=== PATIENT | female | born 1950 | race Caucasian/White ===

== ENCOUNTER 2019-07-15 09:00 | Outpatient (CLI) | payer MEDICARE, SELFPAY ==
[2019-07-15 09:20] LABS: Hemoglobin A1C 8.9 % (<5.7)
[2019-07-15 10:05] LABS: Alanine Aminotransferase 39 U/L (14-59); Albumin Level 3.7 g/dL (3.4-5.0); Alkaline Phosphatase 138 U/L (46-116); Anion Gap 14.4 mmol/L (7-16); Aspartate Amino Transferase 20 U/L (15-37); Bilirubin,Total 0.3 mg/dL (0.00-1.00); Blood Urea Nitrogen 17 mg/dL (7-18); Carbon Dioxide 27 mmol/L (21-32); Chloride 102 mmol/L (98-108); Cholesterol 151 mg/dL (0-200); Estimated Glomerular Filt Rate 60; Glucose 220 mg/dL (70-99); HDL Direct 39 mg/dL (40-60); LDL Cholesterol Calculated 85 mg/dL (<130); Osmolality Calculated 296 mOsm/kg (285-295); Potassium 4.4 mmol/L (3.5-5.1); Sodium 139 mmol/L (136-145); Total Protein 7.4 g/dL (6.4-8.2); Triglycerides 137 mg/dL (0-150)
[2019-07-15 18:43] LABS: CRP < 0.2 mg/dL (0.0-0.9)
[2019-07-15 19:22] LABS: Basophils Absolute Auto 0.01 K/mm3 (0.00-0.10); Basophils Percent Auto 0.1 % (0.0-1.0); Eosinophils Absolute Auto 0.69 K/mm3 (0.02-0.50); Eosinophils Percent Auto 7.6 % (1.0-6.0); Hematocrit 38.9 % (35.0-42.0); Immature Granulocyte Absolute 0.03 K/mm3 (0.00-0.00); Immature Granulocyte Percent A 0.3 % (0.0-0.0); Lymphocytes Absolute Auto 2.49 K/mm3 (1.10-4.50); Lymphocytes Percent Auto 27.3 % (18.0-42.0); Mean Corpuscular HGB Conc 33.4 g/dL (32.0-36.0); Mean Corpuscular Volume 86.6 fL (78.0-102.0); Mean Platelet Volume 10.5 fl (9.2-11.8); Monocytes Absolute Auto 0.65 K/mm3 (0.10-0.90); Monocytes Percent Auto 7.1 % (2.0-11.0); Neutrophils Absolute Auto 5.3 K/mm3 (1.7-7.2); Neutrophils Percent Auto 57.6 % (50.0-70.0); Platelet Count Result 329 K/mm3 (150-420); Red Blood Count 4.49 M/mm3 (4.20-5.40); Red Cell Distribution Width 13.1 % (11.6-14.4); White Blood Count 9.1 K/mm3 (4.8-10.8)
== END 2019-07-15 09:01 | disposition home or self-care (01) ==
LOC: CHSLAB 09:02
PROVIDERS: PCP Internal Medicine; Visit Provider Internal Medicine
DX: E78.5 Hyperlipidemia, unspecified (principal); E11.9 Type 2 diabetes mellitus without complications; M79.674 Pain in right toe(s)
CPT/HCPCS: 36415; 80053; 80061; 83036; 85025; 86140

== ENCOUNTER 2019-07-24 17:05 | Outpatient (CLI) | payer MEDICARE, SELFPAY ==
--- NOTE | ~2019-07-24 | XR_ITS ---
EXAMINATION: XR hand RT min 3V INDICATION: Right hand pain TECHNIQUE: Three views of the right hand are obtained. COMPARISON: 10/06/2014 FINDINGS: There is no fracture, dislocation, or subluxation. There is mild polyarticular osteoarthrit is of the interphalangeal joints. The soft tissues are unremarkable. IMPRESSION: 1. Mild osteoarthritis. Reviewed, dictated and finalized at location A. IMPRESSION: 1. Mild osteoarthritis.
--- NOTE | ~2019-07-24 | XR_ITS ---
EXAMINATION: XR hand LT min 3V INDICATION: Left hand pain TECHNIQUE: Three views of the left hand are obtained. COMPARISON: 10/06/2014 FINDINGS: There is no fracture, dislocation, or subluxation. There is mild polyarticular osteoarthrit is of the interphalangeal joints. The soft tissues are unremarkable. IMPRESSION: 1. Mild osteoarthritis. Reviewed, dictated and finalized at location A. IMPRESSION: 1. Mild osteoarthritis.
== END 2019-07-24 17:06 | disposition home or self-care (01) ==
LOC: CHSIMG 17:08
PROVIDERS: PCP Internal Medicine; Visit Provider Internal Medicine
DX: M79.642 Pain in left hand (principal); M79.641 Pain in right hand
CPT/HCPCS: 73130

== ENCOUNTER 2019-09-10 10:22 | Outpatient (CLI) | payer MEDICARE, SELFPAY ==
--- NOTE | ~2019-09-10 | MM_ITS ---
EXAMINATION: MM screening [facility] HISTORY: Screening mammogram TECHNIQUE: Craniocaudal and mediolateral oblique 3-D tomosynthesis images were obtained and synthetic 2-D images were generated. CAD analysis was submitted and interpreted. COMPARISON: Comparison to multiple prior studies sequentially, with oldest reviewed study dated 05/2013. BREAST PARENCHYMAL COMPOSITION: There are scattered areas of fibroglandular density. FINDINGS: There is no evidence of suspicious mass, calcification, or architectural distortion to sugg est malignancy in either breast. There has been no suspicious interval change. IMPRESSION: 1. No mammographic evidence of malignancy. 2. Recommend routine screening mammography in one year. BI-RADS Category 1: Negative Reviewed, dictated and finalized at location A.
== END 2019-09-10 10:23 | disposition home or self-care (01) ==
LOC: ANHIMG 10:29
PROVIDERS: PCP Internal Medicine; Visit Provider Internal Medicine
DX: Z12.31 Encounter for screening mammogram for malignant neoplasm of breast (principal)
CPT/HCPCS: 77063; 77067

== ENCOUNTER 2019-10-21 07:58 | Outpatient (CLI) | payer MEDICARE, SELFPAY ==
[2019-10-21 08:12] LABS: Basophils Absolute Auto 0.01 K/mm3 (0.00-0.10); Basophils Percent Auto 0.1 % (0.0-1.0); Eosinophils Absolute Auto 0.76 K/mm3 (0.02-0.50); Eosinophils Percent Auto 8.3 % (1.0-6.0); Hematocrit 36.1 % (35.0-42.0); Hemoglobin 12.3 g/dL (11.7-13.8); Immature Granulocyte Absolute 0.02 K/mm3 (0.00-0.00); Immature Granulocyte Percent A 0.2 % (0.0-0.0); Lymphocytes Percent Auto 28.5 % (18.0-42.0); Mean Corpuscular HGB Conc 34.1 g/dL (32.0-36.0); Mean Corpuscular Hemoglobin 29.6 pg (27.0-31.0); Mean Corpuscular Volume 86.8 fL (78.0-102.0); Mean Platelet Volume 9.9 fl (9.2-11.8); Monocytes Absolute Auto 0.83 K/mm3 (0.10-0.90); Monocytes Percent Auto 9.1 % (2.0-11.0); Neutrophils Absolute Auto 4.9 K/mm3 (1.7-7.2); Neutrophils Percent Auto 53.8 % (50.0-70.0); Platelet Count Result 334 K/mm3 (150-420); Red Blood Count 4.16 M/mm3 (4.20-5.40); Red Cell Distribution Width 13.2 % (11.6-14.4); White Blood Count 9.1 K/mm3 (4.8-10.8)
[2019-10-21 08:30] LABS: Hemoglobin A1C 7.5 % (<5.7)
[2019-10-21 09:19] LABS: Alanine Aminotransferase 40 U/L (14-59); Albumin Level 3.9 g/dL (3.4-5.0); Alkaline Phosphatase 103 U/L (46-116); Anion Gap 12.3 mmol/L (7-16); Aspartate Amino Transferase 26 U/L (15-37); Bilirubin,Total 0.3 mg/dL (0.00-1.00); Blood Urea Nitrogen 26 mg/dL (7-18); Calcium 9.8 mg/dL (8.5-10.1); Carbon Dioxide 28 mmol/L (21-32); Chloride 103 mmol/L (98-108); Estimated Glomerular Filt Rate 37; Glucose 84 mg/dL (70-99); Osmolality Calculated 291 mOsm/kg (285-295); Potassium 4.3 mmol/L (3.5-5.1); Sodium 139 mmol/L (136-145); Thyroid Stimulating Hormone 8.48 uIU/mL (0.36-3.74); Total Protein 7.1 g/dL (6.4-8.2)
[2019-10-21 09:25] LABS: CRP < 0.2 mg/dL (0.0-0.9)
== END 2019-10-21 07:59 | disposition home or self-care (01) ==
PROVIDERS: PCP Internal Medicine; Visit Provider Internal Medicine
DX: E03.9 Hypothyroidism, unspecified (principal); I10 Essential (primary) hypertension; E11.9 Type 2 diabetes mellitus without complications; M79.643 Pain in unspecified hand
CPT/HCPCS: 36415; 80053; 83036; 84443; 85025; 86140

== ENCOUNTER 2020-01-21 09:40 | Outpatient (CLI) | payer MEDICARE, SELFPAY ==
[2020-01-21 09:53] LABS: Appearance Urine Clear (Clear); Bilirubin Urine Negative (Negative); Color Urine Yellow (Yellow); Glucose Urine UA Negative (Negative); Ketones Urine Negative (Negative); Leukocyte Esterase Ur 1+ (Negative); Nitrate Urine Negative (Negative); Protein Urine Negative (Negative); Urobilinogen Urine 0.2 mg/dL (0.2-1.0); pH Urine 6.5 (5.0-8.0)
[2020-01-21 09:54] LABS: Add Urine Microscopic? YES
[2020-01-21 10:00] LABS: Creatinine Urine 77.47 mg/dL (40-278); MALB Creatinine Ratio 19.4 mg/g (0-30); Microalbumin Urine Random 15.1 mg/L
[2020-01-21 10:34] LABS: Blood Urine Trace (Negative)
[2020-01-21 10:36] LABS: Squamous Epithelial Cell Urine Few /hpf (Few)
[2020-01-21 11:20] LABS: Alanine Aminotransferase 38 U/L (14-59); Albumin Level 3.9 g/dL (3.4-5.0); Alkaline Phosphatase 114 U/L (46-116); Anion Gap 9 mmol/L (8-16); Aspartate Amino Transferase 18 U/L (15-37); Bilirubin,Total 0.3 mg/dL (0.00-1.00); Blood Urea Nitrogen 23 mg/dL (7-18); Calcium 10.2 mg/dL (8.5-10.1); Carbon Dioxide 27 mmol/L (21-32); Chloride 106 mmol/L (98-108); Cholesterol 146 mg/dL (0-200); Estimated Glomerular Filt Rate 39; Glucose 149 mg/dL (70-99); HDL Direct 44 mg/dL (40-60); LDL Cholesterol Calculated 80 mg/dL (<130); Osmolality Calculated 300 mOsm/kg (285-295); Potassium 5.1 mmol/L (3.5-5.1); Sodium 142 mmol/L (136-145); Thyroid Stimulating Hormone 1.18 uIU/mL (0.36-3.74); Total Protein 7.2 g/dL (6.4-8.2); Triglycerides 111 mg/dL (0-150)
== END 2020-01-21 09:41 | disposition home or self-care (01) ==
LOC: CHSLAB 09:42
PROVIDERS: PCP Internal Medicine; Visit Provider Internal Medicine
DX: E03.9 Hypothyroidism, unspecified (principal); E11.9 Type 2 diabetes mellitus without complications; R79.89 Other specified abnormal findings of blood chemistry
CPT/HCPCS: 36415; 80053; 80061; 81001; 82043; 83036; 84443

== ENCOUNTER 2020-07-20 09:38 | Outpatient (CLI) | payer MEDICARE, SELFPAY ==
[2020-07-20 09:52] LABS: Add Urine Microscopic? YES; Appearance Urine Clear (Clear); Basophils Absolute Auto 0.01 K/mm3 (0.00-0.10); Basophils Percent Auto 0.1 % (0.0-1.0); Bilirubin Urine Negative (Negative); Blood Urine Negative (Negative); Color Urine Yellow (Yellow); Eosinophils Absolute Auto 0.77 K/mm3 (0.02-0.50); Eosinophils Percent Auto 9.1 % (1.0-6.0); Glucose Urine UA Negative (Negative); Hematocrit 34.3 % (35.0-42.0); Hemoglobin 11.2 g/dL (11.7-13.8); Immature Granulocyte Absolute 0.03 K/mm3 (0.00-0.00); Immature Granulocyte Percent A 0.4 % (0.0-0.0); Ketones Urine Negative (Negative); Leukocyte Esterase Ur 1+ (Negative); Lymphocytes Absolute Auto 2.29 K/mm3 (1.10-4.50); Lymphocytes Percent Auto 27.1 % (18.0-42.0); Mean Corpuscular HGB Conc 32.7 g/dL (32.0-36.0); Mean Corpuscular Hemoglobin 28.4 pg (27.0-31.0); Mean Corpuscular Volume 87.1 fL (78.0-102.0); Mean Platelet Volume 10.6 fl (9.2-11.8); Monocytes Absolute Auto 0.79 K/mm3 (0.10-0.90); Monocytes Percent Auto 9.4 % (2.0-11.0); Neutrophils Absolute Auto 4.6 K/mm3 (1.7-7.2); Neutrophils Percent Auto 53.9 % (50.0-70.0); Nitrate Urine Negative (Negative); Platelet Count Result 307 K/mm3 (150-420); Protein Urine Negative (Negative); Red Blood Count 3.94 M/mm3 (4.20-5.40); Red Cell Distribution Width 12.5 % (11.6-14.4); Specific Grav Ur 1.025 (1.010-1.020); Urobilinogen Urine 0.2 mg/dL (0.2-1.0); White Blood Count 8.4 K/mm3 (4.8-10.8); pH Urine 5.5 (5.0-8.0)
[2020-07-20 10:03] LABS: Creatinine Urine 84.52 mg/dL (40-278); MALB Creatinine Ratio 51.3 mg/g (0-30); Microalbumin Urine Random 43.4 mg/L
[2020-07-20 10:07] LABS: Hemoglobin A1C 7.6 % (<5.7)
[2020-07-20 10:08] LABS: RBC Urine None seen /hpf (0-2); Squamous Epithelial Cell Urine Few /hpf (Few)
[2020-07-20 10:09] LABS: Bacteria Urine 1+ /hpf
[2020-07-20 10:58] LABS: Alanine Aminotransferase 37 U/L (14-59); Albumin Level 3.6 g/dL (3.4-5.0); Alkaline Phosphatase 124 U/L (46-116); Anion Gap 10 mmol/L (8-16); Aspartate Amino Transferase 29 U/L (15-37); Bilirubin,Total 0.4 mg/dL (0.00-1.00); Blood Urea Nitrogen 37 mg/dL (7-18); Calcium 10.2 mg/dL (8.5-10.1); Carbon Dioxide 26 mmol/L (21-32); Chloride 102 mmol/L (98-108); Cholesterol 144 mg/dL (0-200); Estimated Glomerular Filt Rate 32; Glucose 144 mg/dL (70-99); HDL Direct 38 mg/dL (40-60); LDL Cholesterol Calculated 70 mg/dL (<130); Osmolality Calculated 297 mOsm/kg (285-295); Potassium 5.2 mmol/L (3.5-5.1); Sodium 138 mmol/L (136-145); Thyroid Stimulating Hormone 1.78 uIU/mL (0.36-3.74); Total Protein 6.9 g/dL (6.4-8.2); Triglycerides 178 mg/dL (0-150)
== END 2020-07-20 09:39 | disposition home or self-care (01) ==
PROVIDERS: PCP Internal Medicine; Visit Provider Internal Medicine
DX: E11.9 Type 2 diabetes mellitus without complications (principal); E78.5 Hyperlipidemia, unspecified; I10 Essential (primary) hypertension; E03.9 Hypothyroidism, unspecified
CPT/HCPCS: 36415; 80053; 80061; 81001; 82043; 83036; 84443; 85025

== ENCOUNTER 2020-08-21 08:40 | Outpatient (CLI) | payer MEDICARE, SELFPAY ==
[2020-08-21 09:31] LABS: Anion Gap 8 mmol/L (8-16); Blood Urea Nitrogen 20 mg/dL (7-18); Calcium 10.6 mg/dL (8.5-10.1); Carbon Dioxide 29 mmol/L (21-32); Chloride 101 mmol/L (98-108); Estimated Glomerular Filt Rate 37; Glucose 181 mg/dL (70-99); Osmolality Calculated 293 mOsm/kg (285-295); Potassium 4.2 mmol/L (3.5-5.1); Sodium 138 mmol/L (136-145)
== END 2020-08-21 08:41 | disposition home or self-care (01) ==
LOC: CHSLAB 08:42
PROVIDERS: PCP Internal Medicine; Visit Provider Specialist
DX: I25.110 Atherosclerotic heart disease of native coronary artery with unstable angina pectoris (principal); I10 Essential (primary) hypertension
CPT/HCPCS: 36415; 80048

== ENCOUNTER 2020-09-01 09:03 | Outpatient (CLI) | payer MEDICARE, SELFPAY ==
--- NOTE | ~2020-09-01 | XR_ITS ---
EXAMINATION: XR ankle RT min 3V EXAM DATE: 09/01/2020 09:21 INDICATION: Right ankle pain with lat swelling x2days. No known recent injury provided at this time. TECHNIQUE: Right ankle frontal, lateral and oblique projections obtained and reviewed. There is no p rior study for comparison. FINDINGS: The right ankle mortise appears intact. Possible ankle joint effusion. Also some swellin g suspected along the ankle anterolaterally. Small calcaneal spurs. There are no acute fractures or d islocations identified. There is no subcutaneous gas. The soft tissue is unremarkable. There are no radiopaque foreign bodies. IMPRESSION: 1. Possible right ankle joint effusion. 2. Soft tissue swelling. Reviewed, dictated and finalized at location A.
== END 2020-09-01 09:04 | disposition home or self-care (01) ==
LOC: CHSIMG 09:05
PROVIDERS: PCP Internal Medicine; Visit Provider Internal Medicine
DX: M25.571 Pain in right ankle and joints of right foot (principal)
CPT/HCPCS: 73610

== ENCOUNTER 2020-09-10 09:48 | Outpatient (CLI) | payer MEDICARE, SELFPAY ==
[2020-09-10 11:23] LABS: Anion Gap 11 mmol/L (8-16); Blood Urea Nitrogen 33 mg/dL (7-18); Carbon Dioxide 24 mmol/L (21-32); Chloride 103 mmol/L (98-108); Estimated Glomerular Filt Rate 33; Glucose 252 mg/dL (70-99); Osmolality Calculated 302 mOsm/kg (285-295); Potassium 4.3 mmol/L (3.5-5.1); Sodium 138 mmol/L (136-145)
== END 2020-09-10 09:49 | disposition home or self-care (01) ==
PROVIDERS: PCP Internal Medicine; Visit Provider Specialist
DX: I10 Essential (primary) hypertension (principal); R06.02 Shortness of breath
CPT/HCPCS: 36415; 80048

== ENCOUNTER 2020-09-18 13:52 | Outpatient (CLI) | payer MEDICARE, SELFPAY ==
--- NOTE | ~2020-09-18 | DEXA_ITS ---
Bone Density Report Name: Sue Dupree Age: 70 Sex: Female Ethnicity: White Date of : 1950 Indication: postmenopausal; prior fracture; Referring Provider: Shaka Harris Study: Bone densitometry was performed. Exam Date: September 18, 2020 Accession number: [id number] Bone Density: Region BMD T-score Z-score Classification AP Spine (L1-L4) 1.327 2.5 4.5 Normal Femoral Neck (Left) 0.988 1.3 2.9 Normal Total Hip (Left) 1.137 1.6 3.0 Normal Total Hip Bilateral Avg 1.172 1.9 3.3 Normal Femoral Neck (Right) 1.011 1.5 3.1 Normal Total Hip (Right) 1.205 2.2 3.6 Normal World Health Organization criteria for BMD impression classify patients as: Normal (T-score at or above -1.0), Osteopenia (T-score between -1.0 and -2.5), or Osteoporosis (T-score at or below -2.5). 10-year Fracture Risk: FRAX not reported because: All T-scores for Spine Total, Hip Total, Femoral Neck at or above -1.0 Previous Exams: Region Exam Age BMD T-score BMD Change BMD Change Date g/cm2 vs Baseline vs Previous AP Spine(L1-L4) 09/18/2020 70 1.327 2.5 0.145(12.3%)# -0.020(-1.5%)# 08/24/2018 68 1.346 2.7 0.165(13.9%)# 0.028(2.1%)# 01/29/2016 65 1.319 2.5 0.137(11.6%)# 0.047(3.7%)# 12/06/2013 63 1.272 2.0 0.090(7.6%)# 0.026(2.0%)* 09/16/2011 61 1.246 1.8 0.065(5.5%)# 0.032(2.7%)# 05/22/2009 58 1.214 1.5 0.032(2.7%)* 0.032(2.7%)* 03/19/2007 56 1.182 1.2 Total Hip(Left) 09/18/2020 70 1.137 1.6 -0.027(-2.3%)# -0.051(-4.3%)* 08/24/2018 68 1.188 2.0 0.024(2.1%)# -0.007(-0.6%)# 01/29/2016 65 1.195 2.1 0.031(2.7%)# -0.132(-9.9%)# 12/06/2013 63 1.327 3.2 0.163(14.0%)# 0.076(6.1%)# 09/16/2011 61 1.250 2.5 0.086(7.4%)# 0.101(8.8%)# 05/22/2009 58 1.149 1.7 -0.014(-1.2%) -0.014(-1.2%) 03/19/2007 56 1.164 1.8 Total Hip(Right) 09/18/2020 70 1.205 2.2 0.072(6.3%)# -0.080(-6.2%)* 08/24/2018 68 1.285 2.8 0.152(13.4%)# 0.020(1.6%)# 01/29/2016 65 1.265 2.6 0.132(11.6%)# -0.018(-1.4%)# 12/06/2013 63 1.283 2.8 0.150(13.2%)# -0.015(-1.1%) 09/16/2011 61 1.298 2.9 0.165(14.5%)# 0.084(6.9%)# 05/22/2009 58 1.214 2.2 0.081(7.1%)* 0.081(7.1%)* 03/19/2007 56 1.133 1.6 *Denotes significance at 95% confidence level, LSC for AP Spine = 0.022 g/cm2, LSC for Total Hip = 0.027 g/cm2 Clinical Information Provided by Patient: Has had a low trauma fracture Has used the f
--- NOTE | ~2020-09-18 | MM_ITS ---
EXAMINATION: MM screening [facility] HISTORY: Screening mammogram TECHNIQUE: Craniocaudal and mediolateral oblique 3-D tomosynthesis images were obtained and synthetic 2-D images were generated. CAD analysis was submitted and interpreted. COMPARISON: 09/10/2019, 08/24/2018, 07/18/2017 BREAST PARENCHYMAL COMPOSITION: There are scattered areas of fibroglandular density. FINDINGS: There is no evidence of suspicious mass, calcification, or architectural distortion to sugg est malignancy in either breast. There has been no suspicious interval change. IMPRESSION: 1. No mammographic evidence of malignancy. 2. Recommend routine screening mammography in one year. BI-RADS Category 1: Negative Reviewed, dictated and finalized at location A.
== END 2020-09-18 13:53 | disposition home or self-care (01) ==
LOC: ANHIMG 13:56
PROVIDERS: PCP Internal Medicine; Referring Provider Obstetrics & Gynecology; Visit Provider Internal Medicine
DX: Z12.31 Encounter for screening mammogram for malignant neoplasm of breast (principal); Z78.0 Asymptomatic menopausal state
CPT/HCPCS: 77063; 77067; 77080

== ENCOUNTER 2020-09-25 09:08 | Outpatient (CLI) | payer MEDICARE, SELFPAY ==
[2020-09-25 10:18] LABS: Anion Gap 8 mmol/L (8-16); Blood Urea Nitrogen 22 mg/dL (7-18); Calcium 10.4 mg/dL (8.5-10.1); Carbon Dioxide 28 mmol/L (21-32); Chloride 101 mmol/L (98-108); Estimated Glomerular Filt Rate 36; Glucose 189 mg/dL (70-99); Osmolality Calculated 292 mOsm/kg (285-295); Potassium 4.5 mmol/L (3.5-5.1); Sodium 137 mmol/L (136-145)
== END 2020-09-25 09:09 | disposition home or self-care (01) ==
LOC: CHSLAB 09:11
PROVIDERS: PCP Internal Medicine; Visit Provider Specialist
DX: R06.02 Shortness of breath (principal); I10 Essential (primary) hypertension; I25.110 Atherosclerotic heart disease of native coronary artery with unstable angina pectoris
CPT/HCPCS: 36415; 80048

== ENCOUNTER 2021-01-19 09:21 | Outpatient (CLI) | payer MEDICARE, SELFPAY ==
[2021-01-19 09:36] LABS: Basophils Absolute Auto 0.01 K/mm3 (0.00-0.10); Basophils Percent Auto 0.1 % (0.0-1.0); Eosinophils Absolute Auto 0.62 K/mm3 (0.02-0.50); Hematocrit 35.2 % (35.0-42.0); Hemoglobin 11.6 g/dL (11.7-13.8); Immature Granulocyte Absolute 0.03 K/mm3 (0.00-0.00); Immature Granulocyte Percent A 0.3 % (0.0-0.0); Lymphocytes Absolute Auto 2.36 K/mm3 (1.10-4.50); Lymphocytes Percent Auto 26.5 % (18.0-42.0); Mean Corpuscular Hemoglobin 27.6 pg (27.0-31.0); Mean Corpuscular Volume 83.6 fL (78.0-102.0); Monocytes Absolute Auto 0.84 K/mm3 (0.10-0.90); Monocytes Percent Auto 9.4 % (2.0-11.0); Neutrophils Percent Auto 56.7 % (50.0-70.0); Platelet Count Result 340 K/mm3 (150-420); Red Blood Count 4.21 M/mm3 (4.20-5.40); White Blood Count 8.9 K/mm3 (4.8-10.8)
[2021-01-19 09:51] LABS: Hemoglobin A1C 7.7 % (<5.7)
[2021-01-19 10:50] LABS: Alanine Aminotransferase 46 U/L (14-59); Albumin Level 3.8 g/dL (3.4-5.0); Alkaline Phosphatase 115 U/L (46-116); Anion Gap 12 mmol/L (8-16); Aspartate Amino Transferase 24 U/L (15-37); Bilirubin,Total 0.4 mg/dL (0.00-1.00); Blood Urea Nitrogen 17 mg/dL (7-18); Calcium 10.3 mg/dL (8.5-10.1); Carbon Dioxide 27 mmol/L (21-32); Chloride 102 mmol/L (98-108); Cholesterol 134 mg/dL (0-200); Estimated Glomerular Filt Rate 44; Glucose 138 mg/dL (70-99); HDL Direct 41 mg/dL (40-60); LDL Cholesterol Calculated 63 mg/dL (<130); Osmolality Calculated 295 mOsm/kg (285-295); Potassium 4.2 mmol/L (3.5-5.1); Sodium 141 mmol/L (136-145); Thyroid Stimulating Hormone 3.85 uIU/mL (0.36-3.74); Triglycerides 151 mg/dL (0-150)
== END 2021-01-19 09:22 | disposition home or self-care (01) ==
LOC: CHSLAB 09:24
PROVIDERS: PCP Internal Medicine; Visit Provider Internal Medicine
DX: E03.9 Hypothyroidism, unspecified (principal); E11.9 Type 2 diabetes mellitus without complications; E78.5 Hyperlipidemia, unspecified; I10 Essential (primary) hypertension
CPT/HCPCS: 36415; 80053; 80061; 83036; 84443; 85025

== ENCOUNTER 2021-01-25 11:53 | Outpatient (CLI) | payer MEDICARE, SELFPAY ==
--- NOTE | ~2021-01-25 | XR_ITS ---
EXAMINATION: XR knee LT 3V EXAM DATE: 01/25/2021 12:27 INDICATION: B/L hip and leg pain. TECHNIQUE: Three projections of the left knee. There is no prior study for comparison. FINDINGS: No evidence osteochondral defect or joint body in the left knee joint. No joint effusion . Mild suprapatellar enthesopathy. Mild tricompartmental osteoarthritis. There are no acute fractures or dislocations identified. There is no subcutaneous gas. The soft tissue is unremarkable. There are no radiopaque foreign bodies. IMPRESSION: Mild left knee osteoarthritis. Reviewed, dictated and finalized at location B.
--- NOTE | ~2021-01-25 | XR_ITS ---
EXAMINATION: XR lumbar spine 2-3V EXAM DATE: 01/25/2021 12:27 INDICATION: B/L hip and leg pain, no known injury. TECHNIQUE: Lumber spine frontal, lateral, lateral L5-S1 projections for interpretation. There is no prior study for comparison. FINDINGS: There is 3 mm anterolisthesis L4 on L5 and L5 on S1. Mild diffuse lumbar disc disease. Mild to moderate lumbar facet arthropathy. No spondylolysis suspected. Mild aortic arterial sclerosis. Mi nimal lumbar levocurvature. Sacrum, sacroiliac joints, sacral arcuate lines are intact. IMPRESSION: 1. Grade 1 anterolisthesis L4 on L5 and L5 on S1. 2. Mild to moderate facet arthropathy. Reviewed, dictated and finalized at location B.
--- NOTE | ~2021-01-25 | XR_ITS ---
EXAMINATION: XR hip BI wo pelvis EXAM DATE: 01/25/2021 12:27 INDICATION: B/L hip and leg pain, no known injury. TECHNIQUE: Each hip imaged independently (separate right and also left hip) 'frog leg' and frontal p rojections for interpretation. There is no prior study for comparison. FINDINGS: No radiographic evidence of hip avascular necrosis. There is mild symmetric bilateral hip primary osteoarthritis. There are no acute fractures identified. No radiopaque foreign bodies identi fied. Mild vascular calcifications. IMPRESSION: Mild symmetric bilateral hip osteoarthritis. Reviewed, dictated and finalized at location B.
--- NOTE | ~2021-01-25 | XR_ITS ---
EXAMINATION: XR knee RT 3V EXAM DATE: 01/25/2021 12:27 INDICATION: B/L hip and leg pain . TECHNIQUE: Three projections of the right knee. Compared to study dated 12/03/2009 Correlation is made to contralateral knee same date. FINDINGS: No evidence osteochondral defect or joint body in the right knee joint. Mild suprapatella r enthesopathy. No joint effusion. Mild tricompartmental osteoarthritis. There are no acute fractures or dislocations identified. There is no subcutaneous gas. The soft tissue is unremarkable. There are no radiopaque foreign bodies. IMPRESSION: Mild right knee osteoarthritis. Reviewed, dictated and finalized at location B.
== END 2021-01-25 11:54 | disposition home or self-care (01) ==
LOC: CHSLAB 11:54 → CHSIMG 11:57
PROVIDERS: PCP Internal Medicine; Visit Provider Internal Medicine
DX: M25.552 Pain in left hip (principal); M25.551 Pain in right hip; M79.605 Pain in left leg; M79.604 Pain in right leg
CPT/HCPCS: 72100; 73521; 73562

== ENCOUNTER 2021-02-01 12:54 | Outpatient (RCR) | payer MEDICARE, SELFPAY ==
--- NOTE | 2021-02-01 14:51 | PTOPEVAL ---
Thank you for referring Sue Dupree to [facility].? The patient is scheduled to be seen for therapy? ____x/week for ___ weeks. Please review, sign, date and return this plan of care POPPY. I agree with and certify that the following plan of care is medically necessary. Referring Physician Date Admitting Provider: Attending Provider: Shaka Harris MD Referring Provider: *PT Outpatient Evaluation Start: 02/01/21 12:55 Freq: Status: Active Protocol: Document 02/01/21 12:55 ACR (Rec: 02/01/21 14:00 ACR [id number]) Therapy Assessment Status Assessment Status Assessment Status Evaluation Evaluation Information Problem Diagnosis low back pain, knee pain, hip pain Subjective Information Patient states that she is Query Text:As Reported By Patient/ having difficulty with moving Family her hips and knees and thinks that is effecting her back. Patient states that steps and getting up off of the floor are the most difficult activities for her. She also has difficulty with walking/ standing for a period of time, getting in and out of bed, sitting for a period of time, and getting out of a chair. Patient denies falls. Patient states that her goal for therapy is to increase ROM and improve flexibility. Prior Level of Function Activity Level (Last 3 Months) Occupation retired Hand Dominance Right Activity of Daily Living Ability Independent Indoor/Home Mobility Independent Community Mobility Independent Stairs Ability Independent Functional Cognition (Planning, Shopping Independent , Taking Medications) Cooking Yes Cleaning Yes Laundry Yes Shopping Yes Driving Yes Pain Assessment Timing of Pain Assessment Timing of Pain Assessment Assessment Pain Scale Pain Scale Used Numeric (1 - 10) Self Report Pain Assessment Lower Back Reported Pain Level 4 Pain Description Heavy Lowest Pain Intensity 4 Greatest Pain Intensity 7 Pain Score Pain Score 4: Self Report Additional Pain Score Comments Patient reports no knee or hip pain, mainly the decrease
--- NOTE | 2021-02-22 14:02 | PTOPEVAL ---
Thank you for referring Sue Dupree to [facility].? The patient is scheduled to be seen for therapy? ____x/week for ___ weeks. Please review, sign, date and return this plan of care POPPY. I agree with and certify that the following plan of care is medically necessary. Referring Physician Date Admitting Provider: Attending Provider: Shaka Harris MD Referring Provider: *PT Outpatient Evaluation Start: 02/01/21 12:55 Freq: Status: Active Protocol: Document 02/22/21 13:10 ACR (Rec: 02/22/21 14:00 ACR [id number]) Therapy Assessment Status Assessment Status Assessment Status Progress Evaluation Information Problem Diagnosis low back pain, knee pain, hip pain Onset 01/26/21 Subjective Information Patient states that she feels Query Text:As Reported By Patient/ that she is progressing and Family she has a couple bad days. Patient states that her range of motion has gotten better. Steps are about the same, but believes it is her fear more than anything. She feels that getting in and out of bed and standing up from a seated position is a little easier. Pain Assessment Timing of Pain Assessment Timing of Pain Assessment Assessment Pain Scale Pain Scale Used Numeric (1 - 10) Self Report Pain Assessment Lower Back Reported Pain Level 3 Greatest Pain Intensity 7 Pain Score Pain Score 3: Self Report Interventions Used Interventions Used By Clinicians Activity or ADL's,Electrical Stimulation,Exercise,Heat Lower Extremity Range of Motion Hip Range of Motion Right Hip Flexion Range of Motion - Active 115 Hip Range of Motion Comments pressure with end range Left Hip Flexion Range of Motion - Active 114 Lower Extremity Muscle Strength Testing Hip Strength Right Hip Flexion Strength 5 Normal Hip Abduction Strength 3+ Fair + Left Hip Flexion Strength 4 Good Hip Abduction Strength 3+ Fair + Knee Strength Right Knee Flexion Strength 4 Good Knee Extension Strength 4 Good Left Knee Flexion Strength 4+ Good + Knee Extension Strength 4+ Good + General Exercise General Exercises Exercise Description - reeval x 5 minutes Query Text:Record Sets, Reps, - Fernando HS/piriformis stretching Resistance, and Position x 10 min - LTR x 20 - SLR x 25 B
--- NOTE | 2021-03-01 14:01 | PTOPEVAL ---
Thank you for referring Sue Dupree to [facility].? The patient is scheduled to be seen for therapy? ____x/week for ___ weeks. Please review, sign, date and return this plan of care POPPY. I agree with and certify that the following plan of care is medically necessary. Referring Physician Date Admitting Provider: Attending Provider: Shaka Harris MD Referring Provider: *PT Outpatient Evaluation Start: 02/01/21 12:55 Freq: Status: Active Protocol: Document 03/01/21 13:09 ACR (Rec: 03/01/21 14:00 ACR [id number]) Therapy Assessment Status Assessment Status Assessment Status Progress Evaluation Information Problem Diagnosis low back pain, knee pain, hip pain Onset 01/26/21 Subjective Information Patient states that she is Query Text:As Reported By Patient/ doing okay. She states that Family there is improvement. She states that it is easier to cross her legs. Patient states that getting up from a seated position. She states that getting up from the floor is extremely difficult. Pain Assessment Timing of Pain Assessment Timing of Pain Assessment Assessment Pain Scale Pain Scale Used Numeric (1 - 10) Self Report Pain Assessment Lower Back Reported Pain Level 2 Greatest Pain Intensity 8 Pain Score Pain Score 2: Self Report Interventions Used Interventions Used By Clinicians Activity or ADL's,Electrical Stimulation,Exercise,Heat Lower Extremity Muscle Strength Testing Hip Strength Right Hip Flexion Strength 5 Normal Hip Abduction Strength 3+ Fair + Left Hip Flexion Strength 4 Good Hip Abduction Strength 3+ Fair + Knee Strength Right Knee Flexion Strength 5 Normal Knee Extension Strength 4+ Good + Left Knee Flexion Strength 4 Good Knee Extension Strength 4 Good Muscle Length Testing Muscle Length Testing Piriformis w/Hip Flexion >90 Degrees (R) Moderate Tightness,(L) Moderate Tightness Left Hamstring Length 10 Query Text:(90 - 90 Position) Right Hamstring Length 10 Query Text:(90 - 90 Position) Special Tests-Lower Extremity Hip Special Tests GILBERTO Negative Right,Positive Left FADIR Negative Right,Positive Left Gait Assessment Gait Assessment Additional Ambulation Comments Patient ambulates into the clinic with decreased hip ex
--- NOTE | 2021-03-22 11:27 | PTOPEVAL ---
Thank you for referring Sue Dupree to [facility].? The patient is scheduled to be seen for therapy? ____x/week for ___ weeks. Please review, sign, date and return this plan of care POPPY. I agree with and certify that the following plan of care is medically necessary. Referring Physician Date Admitting Provider: Attending Provider: Shaka Harris MD Referring Provider: *PT Outpatient Evaluation Start: 02/01/21 12:55 Freq: Status: Active Protocol: Document 03/22/21 10:01 [facility] (Rec: 03/22/21 11:27 [facility] [id number]) Therapy Assessment Status Assessment Status Assessment Status Discharge Outpatient Past Medical History Neurological History Hx Migraine Yes Hx Seizures Yes: post toxemia Cardiovascular History Hx Cardiac Catheterization Yes: august 2020 Hx Chest Pain Yes Hx Hypercholesterolemia Yes Hx Hypertension Yes Respiratory History Hx Respiratory Disorders No Significant History Gastrointestinal History Hx Gastrointestinal Disorders No Significant History Genitourinary History Hx Genitourinary Disorders No Significant History Musculoskeletal History Hx Arthritis Yes Hx Fractures Yes: right arm Hematological History Hx Hematological Disorders No Significant History Endocrine History Hx Diabetes Yes: niddm Hx Hypothyroidism Yes HEENT History Hx HEENT Disorders No Significant History Integumentary History Hx Other Skin Disorders Yes: hives Reproductive History Hx Tubal Ligation Yes Psychosocial History Hx Psychiatric Disorders No Significant History Pain History History of Any Previous or Ongoing No Significant History Instance of Pain Anesthesia History Hx Post-Op Nausea/Vomiting Yes Evaluation Information Problem Diagnosis low back pain, knee pain, hip pain Onset 01/26/21 Subjective Information Patient states that she is Query Text:As Reported By Patient/ doing pretty good and is Family staying busy. She states that since beginning therapy she feels her range of motion is a lot better in the L hip. Pain Assessment Timing of Pain Assessment Timing of Pain Assessment Assessment Pain Scale Pain Scale Used Numeric (1 - 10) Self Report Pain Assessment Lower Back Reported Pain Level 2 Greatest Pain Intensity 5 Pain Score Pain Score 2: Self Report Interventions Used Interventions Used By Clinicians Activity or ADL's,Exercise Lower Extremity Range of Motion Hip Range
== END 2021-03-22 14:27 | disposition home or self-care (01) ==
LOC: CHSPT 12:54
PROVIDERS: PCP Internal Medicine; Visit Provider Internal Medicine
DX: M13.862 Other specified arthritis, left knee (principal); M13.861 Other specified arthritis, right knee; M13.852 Other specified arthritis, left hip; M13.851 Other specified arthritis, right hip; M13.88 Other specified arthritis, other site
CPT/HCPCS: 97014; 97110; 97161; 97530; G0283

== ENCOUNTER → 2021-03-20 00:40 | Outpatient (CLI) | payer MEDICARE, SELFPAY ==
[2021-03-20 17:30] LABS: SARS-CoV-2 RNA PCR Negative
== END ==
PROVIDERS: PCP Internal Medicine; Visit Provider Internal Medicine Gastroenterology
DX: Z01.812 Encounter for preprocedural laboratory examination (principal); Z20.822 Contact with and (suspected) exposure to COVID-19
CPT/HCPCS: C9803; U0003; U0005

== ENCOUNTER 2021-03-23 01:43 | Day surgery (SDC) | payer MEDICARE, SELFPAY ==
[2021-03-10 10:28] VITALS: BMI 44.4
[2021-03-23 11:15] VITALS: BP 152/68; PULSE 83; RESP 18; TEMP 36.3; O2SAT 100
[2021-03-23] MEDS: LACTATED RINGERS 1,000 ML 150 ML IV CONT (11:29)
[2021-03-23 11:31] LABS: Glucose Point of Care 186 mg/dl (65-105)
--- NOTE | 2021-03-23 11:31 | WPDGICN ---
Assessment and Plan Assessment and plan (1) Encounter for screening colonoscopy: Code(s): Z12.11 - Encounter for screening for malignant neoplasm of colon Status: Acute Assessment and Plan: Patient presents for neoplasia screening colonoscopy. Has been 10 years since last exam. Further recommendations will be given after endoscopy. (2) Obesity (BMI 30.0-34.9): Code(s): E66.9 - Obesity, unspecified Status: Acute Assessment and Plan: Patient with obesity is encouraged for her to lose weight diet restriction increase activity encouraged. GI Consult Note Consult date/time: 03/23/21 11:31 HPI: Sue Dupree is a 70 year old female Presents for screening colonoscopy. Patient's last colonoscopy was 10 years ago. Patient reports that her weight appetite bowel movements are normal. She does report that she takes metformin in her stools are occasionally loose because of this. On occasion as notice bright red blood per rectum she attributes to a hemorrhoid. Family history is noncontributory. Patient desires neoplasia screening. PMFSH Social History Social History Smoking status: Never smoker Alcohol intake: current Alcohol use details: rarely Substance use: never Substance use type: does not use Living arrangements: alone Spiritual care concerns: No Meds Home Medications and Allergies Home Medications Medication Instructions Recorded Confirmed Type amlodipine [Norvasc] 5 mg PO DAILY 03/23/21 03/23/21 History aspirin [Adult Aspirin] 81 mg PO DAILY 03/23/21 03/23/21 History atorvastatin 40 mg PO HS 03/23/21 03/23/21 History calcium polycarbophil [FiberCon] 1,250 mg PO DAILY 03/23/21 03/23/21 History cetirizine 10 mg PO DAILY 03/23/21 03/23/21 History famotidine 40 mg PO BID 03/23/21 03/23/21 History glyburide-metformin 1 tablet PO BID 03/23/21 03/23/21 History levothyroxine 125 mcg PO DAILY 03/23/21 03/23/21 History metoprolol succinate 50 mg PO DAILY 03/23/21 03/23/21 History montelukast 10 mg PO DAILY 03/23/21 03/23/21 History omega 7-jan-vlx-fish oil [Fish Oil] 1 cap PO BID 03/23/21 03/23/21 History triamterene-hydrochlorothiazid 1 cap PO DAILY 03/23/21 03/23/21 History [Dyazide] Allergies Allergy/AdvReac Type Severity Reaction Status Date / Time Penicillins Allergy Mild Rash Verified 03/23/21 11:14 adhesive tape AdvReac Rash Verified 03/23/21 11:14 lisinopril AdvReac Cough Verified 03/23/21 11:14 Vital Signs Vital Signs - 24 hr 03/23/21 11:15 Temperature 97.4 F L Pulse Rate 83 Respiratory Rate 18 Blood Pressure 152/68 H Pulse Oximetry 100 Exam Narrative: Physical exam reveals patient be alert. Vital signs stable. HEENT exam is unremarkable. Patient is anicteric. Lungs are clear to auscultation and percussion. Heart is without murmur or extra sounds. Abdominal exam somewhat obese. Bowel sounds are present soft nontender with no organomegaly. Digital external rectal exam is normal.
--- NOTE | 2021-03-23 11:34 | WPDANESEPPF ---
Anes - Initial Pre Proc Eval Procedure: Operation Date: 03/23/21 12:30 Proposed Procedures p Screening Colonoscopy - Chris Knox MD Date/Time: 03/23/21 11:34 Surgeon: Chris Knox MD Pre Op Diagnosis: neoplasm screening Patient Data Age: 70 Gender: F Height: 1.6 m Weight: 111.7 kg Last Vital Signs Temp 97.4 F L 03/23/21 11:15 Pulse 83 03/23/21 11:15 Resp 18 03/23/21 11:15 BP 152/68 H 03/23/21 11:15 Pulse Ox 100 03/23/21 11:15 Allergies Allergy/AdvReac Type Severity Reaction Status Date / Time Penicillins Allergy Mild Rash Verified 03/23/21 11:14 adhesive tape AdvReac Rash Verified 03/23/21 11:14 lisinopril AdvReac Cough Verified 03/23/21 11:14 Home Medications Medication Instructions Recorded Confirmed Type amlodipine [Norvasc] 5 mg PO DAILY 03/23/21 03/23/21 History aspirin [Adult Aspirin] 81 mg PO DAILY 03/23/21 03/23/21 History atorvastatin 40 mg PO HS 03/23/21 03/23/21 History calcium polycarbophil [FiberCon] 1,250 mg PO DAILY 03/23/21 03/23/21 History cetirizine 10 mg PO DAILY 03/23/21 03/23/21 History famotidine 40 mg PO BID 03/23/21 03/23/21 History glyburide-metformin 1 tablet PO BID 03/23/21 03/23/21 History levothyroxine 125 mcg PO DAILY 03/23/21 03/23/21 History metoprolol succinate 50 mg PO DAILY 03/23/21 03/23/21 History montelukast 10 mg PO DAILY 03/23/21 03/23/21 History omega 4-kbp-zeb-fish oil [Fish Oil] 1 cap PO BID 03/23/21 03/23/21 History triamterene-hydrochlorothiazid 1 cap PO DAILY 03/23/21 03/23/21 History [Dyazide] Laboratory Tests 03/23/21 11:27 POC Capillary Glucose 186 mg/dl H mg/dl (65-105) Patient hx anesthesia problems: none Family hx anesthesia problems: none Results Review: All pre-operative results and documents have been reviewed as part of the pre-operative evaluation. [facility] Past Medical History Medical History (Updated 03/23/21 @ 11:35 by Devan Ibarra MD) Diabetes Hyperlipidemia Hypertension Migraine Social History Social History Smoking status: Never smoker Alcohol intake: current Alcohol use details: rarely Substance use: never Substance use type: does not use Living arrangements: alone Spiritual care concerns: No Anes - Eval Final PreProcedure Day of Procedure 03/23/21 11:34 Patient weight: morbidly obese Heart: regular rate and rhythm Airway: Mallampati scale class III Neurological: alert and oriented Last oral intake: >/= 8 hours ASA classification: III Emergent: no Anesthetic plan: proceed Anesthesia type and monitoring: general GIVS and standard monitoring Results Review: All pre-operative results and documents have been reviewed as part of the pre-operative evaluation. Informed Consent: The patient's anesthetic plan and its attendant risks and benefits were discussed with the patient/family/POA. Questions were solicited and answers provided to the satisfaction of the patient/family/POA.
[2021-03-23 12:00] VITALS: BP 127/66; PULSE 82; RESP 19; O2SAT 99
[2021-03-23 12:10] VITALS: BP 117/73; PULSE 83; RESP 22; O2SAT 99
[2021-03-23 12:20] VITALS: BP 132/74; PULSE 80; RESP 23; O2SAT 100
== END 2021-03-23 12:33 | disposition home or self-care (01) ==
PROVIDERS: PCP Internal Medicine; Visit Provider Internal Medicine Gastroenterology
PROC: 0DJD8ZZ Inspection of Lower Intestinal Tract, Via Natural or Artificial Opening Endoscopic (ICD-10-PCS; CPT 45378; principal; 2021-03-23 12:30)
DX: Z12.11 Encounter for screening for malignant neoplasm of colon (principal); K64.8 Other hemorrhoids; K62.5 Hemorrhage of anus and rectum; Z79.82 Long term (current) use of aspirin; E03.9 Hypothyroidism, unspecified; E11.9 Type 2 diabetes mellitus without complications; I10 Essential (primary) hypertension; E78.5 Hyperlipidemia, unspecified; E66.01 Morbid (severe) obesity due to excess calories; Z68.41 Body mass index [BMI] 40.0-44.9, adult
CPT/HCPCS: G0121; 82948; J2704; J7120

== ENCOUNTER 2021-08-18 13:31 | Outpatient (CLI) | payer MEDICARE, SELFPAY ==
[2021-08-18 13:44] LABS: Basophils Absolute Auto 0.01 K/mm3 (0.00-0.10); Basophils Percent Auto 0.1 % (0.0-1.0); Eosinophils Absolute Auto 0.61 K/mm3 (0.02-0.50); Eosinophils Percent Auto 6.8 % (1.0-6.0); Hematocrit 37.5 % (35.0-42.0); Hemoglobin 12.2 g/dL (11.7-13.8); Immature Granulocyte Absolute 0.03 K/mm3 (0.00-0.00); Immature Granulocyte Percent A 0.3 % (0.0-0.0); Lymphocytes Absolute Auto 2.25 K/mm3 (1.10-4.50); Lymphocytes Percent Auto 25.1 % (18.0-42.0); Mean Corpuscular HGB Conc 32.5 g/dL (32.0-36.0); Mean Corpuscular Hemoglobin 27.4 pg (27.0-31.0); Mean Corpuscular Volume 84.1 fL (78.0-102.0); Mean Platelet Volume 9.8 fl (9.2-11.8); Monocytes Absolute Auto 0.72 K/mm3 (0.10-0.90); Neutrophils Absolute Auto 5.4 K/mm3 (1.7-7.2); Neutrophils Percent Auto 59.7 % (50.0-70.0); Platelet Count Result 372 K/mm3 (150-420); Red Blood Count 4.46 M/mm3 (4.20-5.40); Red Cell Distribution Width 12.9 % (11.6-14.4)
[2021-08-18 13:53] LABS: Hemoglobin A1C 7.8 % (<5.7)
[2021-08-18 14:33] LABS: Alanine Aminotransferase 45 U/L (14-59); Albumin Level 3.8 g/dL (3.4-5.0); Alkaline Phosphatase 111 U/L (46-116); Anion Gap 7 mmol/L (8-16); Aspartate Amino Transferase 25 U/L (15-37); Bilirubin,Total 0.4 mg/dL (0.00-1.00); Blood Urea Nitrogen 21 mg/dL (7-18); Calcium 10.5 mg/dL (8.5-10.1); Carbon Dioxide 31 mmol/L (21-32); Chloride 102 mmol/L (98-108); Cholesterol 150 mg/dL (0-200); Estimated Glomerular Filt Rate 47; Glucose 120 mg/dL (70-99); HDL Direct 45 mg/dL (40-60); LDL Cholesterol Calculated 83 mg/dL (<130); Osmolality Calculated 294 mOsm/kg (285-295); Potassium 4.8 mmol/L (3.5-5.1); Sodium 140 mmol/L (136-145); Thyroid Stimulating Hormone 0.13 uIU/mL (0.36-3.74); Total Protein 7.3 g/dL (6.4-8.2); Triglycerides 112 mg/dL (0-150)
== END 2021-08-18 13:32 | disposition home or self-care (01) ==
LOC: CHSLAB 13:33
PROVIDERS: PCP Internal Medicine; Visit Provider Internal Medicine
DX: E03.9 Hypothyroidism, unspecified (principal); E11.65 Type 2 diabetes mellitus with hyperglycemia; E78.5 Hyperlipidemia, unspecified
CPT/HCPCS: 36415; 80053; 80061; 83036; 84443; 85025

== ENCOUNTER 2021-10-12 10:46 | Outpatient (CLI) | payer MEDICARE, SELFPAY ==
--- NOTE | ~2021-10-12 | MM_ITS ---
EXAMINATION: MM screening [facility] w [facility] HISTORY: Screening mammogram TECHNIQUE: Craniocaudal and mediolateral oblique 3-D tomosynthesis images were obtained and synthetic 2-D images were generated. CAD analysis was submitted and interpreted. COMPARISON: 09/18/2020, 09/10/2019, 08/24/2018 BREAST PARENCHYMAL COMPOSITION: There are scattered areas of fibroglandular density. FINDINGS: There is no suspicious mass, calcification, or architectural distortion to suggest malignan cy in either breast. There has been no suspicious interval change. IMPRESSION: 1. No mammographic evidence of malignancy. 2. Recommend routine screening mammography in one year. BI-RADS Category 1: Negative Reviewed, dictated and finalized at location A.
== END 2021-10-12 10:47 | disposition home or self-care (01) ==
PROVIDERS: PCP Internal Medicine; Visit Provider Internal Medicine
DX: Z12.31 Encounter for screening mammogram for malignant neoplasm of breast (principal)
CPT/HCPCS: 77063; 77067

== ENCOUNTER 2021-10-15 13:26 | Outpatient (CLI) | payer MEDICARE, SELFPAY ==
--- NOTE | 2021-10-15 13:55 | PC.NURSE ---
Patient here to receive bebtelovimab IVP. Patient given paperwork to read over and sign for consent for medication.
[2021-10-15 14:00] VITALS: BP 132/59; PULSE 77; RESP 18; TEMP 36.3; O2SAT 96
--- NOTE | 2021-10-15 14:00 | PC.NURSE ---
Consent obtained to give medication. IV initiated, patient tolerated well.
[2021-10-15] MEDS: diphenhydrAMINE HCl CAP 25 MG CAPSULE PO (14:03)
[2021-10-15] MEDS: ACETAMINOPHEN 325 MG TABLET 650 MG PO (14:03)
[2021-10-15] MEDS: BEBTELOVIMAB 175 MG/2 ML VIAL IV PUSH (14:03)
[2021-10-15 14:45] VITALS: BP 133/68; PULSE 72; RESP 18; TEMP 36.2; O2SAT 100
--- NOTE | 2021-10-15 14:45 | PC.NURSE ---
Patient tolerated medication well. Vital signs stable. Denies any questions or concerns at discharge. Patient accompanied to front door by this nurse, left via private vehicle.
== END 2021-10-15 13:27 | disposition home or self-care (01) ==
LOC: CHSTREATRM 13:28
PROVIDERS: PCP Internal Medicine; Visit Provider Internal Medicine
DX: U07.1 COVID-19 (principal); E11.9 Type 2 diabetes mellitus without complications; I10 Essential (primary) hypertension
CPT/HCPCS: 96374; A9270; M0222; Q0222

== ENCOUNTER 2021-11-02 09:07 | Outpatient (CLI) | payer MEDICARE, SELFPAY ==
[2021-11-02 09:42] LABS: Creatinine Urine 72.83 mg/dL (40-278); MALB Creatinine Ratio 77.9 mg/g (0-30); Microalbumin Urine Random 56.8 mg/L
[2021-11-02 09:44] LABS: Hemoglobin A1C 7.6 % (<5.7)
[2021-11-02 10:55] LABS: Alanine Aminotransferase 43 U/L (14-59); Albumin Level 3.6 g/dL (3.4-5.0); Alkaline Phosphatase 146 U/L (46-116); Anion Gap 7 mmol/L (8-16); Aspartate Amino Transferase 18 U/L (15-37); Bilirubin,Total 0.4 mg/dL (0.00-1.00); Blood Urea Nitrogen 19 mg/dL (7-18); Calcium 9.4 mg/dL (8.5-10.1); Carbon Dioxide 29 mmol/L (21-32); Chloride 103 mmol/L (98-108); Cholesterol 141 mg/dL (0-200); Estimated Glomerular Filt Rate 41; Ferritin 80 ng/mL (8-252); Free T3 2.27 pg/mL (2.18-3.98); Glucose 228 mg/dL (70-99); HDL Direct 40 mg/dL (40-60); Iron 47 ug/dL (50-170); LDL Cholesterol Calculated 79 mg/dL (<130); Osmolality Calculated 297 mOsm/kg (285-295); Percent Iron Saturation 15 % (12-57); Sodium 139 mmol/L (136-145); Thyroid Stimulating Hormone 0.35 uIU/mL (0.36-3.74); Triglycerides 110 mg/dL (0-150); Vitamin B12 309 pg/mL (193-986)
[2021-11-02 10:56] LABS: Folic Acid > 20.0 ng/mL (8.6->20)
[2021-11-04 19:21] LABS: Parathyroid Intact 57 pg/mL (14-64)
[2021-11-05 07:30] LABS: Insulin Level Total 19.5 uIU/mL (<=19.6); Thyroid Peroxidase Antibodies 52 IU/mL (<9)
[2021-11-05 13:19] LABS: C-Peptide 5.16 ng/mL (0.80-3.85)
[2021-11-05 20:38] LABS: Glutamic acid decarboxylase AA 7 IU/mL (<5)
[2021-11-07 14:16] LABS: Albumin 3.8 g/dL (3.8-4.8); Alpha 1 Globulin 0.4 g/dL (0.2-0.3); Beta 1 Globulin 0.5 g/dL (0.4-0.6); Protein, Total 7.2 g/dL (6.1-8.1); Thyroid Stimulating Immunoglob <89 % baseline (<140); Vitamin D 25 Hydroxy 47 ng/mL (30-100)
== END 2021-11-02 09:08 | disposition home or self-care (01) ==
LOC: CHSLAB 09:11
PROVIDERS: PCP Internal Medicine; Visit Provider Nurse Practitioner
DX: R94.6 Abnormal results of thyroid function studies (principal); E11.65 Type 2 diabetes mellitus with hyperglycemia; E83.52 Hypercalcemia; R53.83 Other fatigue
CPT/HCPCS: 36415; 80053; 80061; 82043; 82306; 82607; 82728; 82746; 83036; 83525; 83540; 83550; 83970; 84155; 84165; 84439; 84443; 84445; 84481; 84681; 86341; 86376

== ENCOUNTER 2021-11-03 13:59 | Outpatient (CLI) | payer MEDICARE, SELFPAY ==
[2021-11-03 14:35] LABS: Creatinine Urine 31.09 mg/dL (40-278)
[2021-11-03 14:36] LABS: Creatinine 24 Hour Urine 1.11 g/24 hr (0.60-1.80); Total Volume 24 Hour Urine 3600 ml
[2021-11-07 15:07] LABS: Total Volume 3600 mL; Urine Calcium 2.8 mg/dL
== END 2021-11-03 14:00 | disposition home or self-care (01) ==
LOC: CHSLAB 14:01
PROVIDERS: PCP Internal Medicine; Visit Provider Nurse Practitioner
DX: R94.6 Abnormal results of thyroid function studies (principal); E11.65 Type 2 diabetes mellitus with hyperglycemia; E83.52 Hypercalcemia; R53.83 Other fatigue
CPT/HCPCS: 81050; 82340; 82570

== ENCOUNTER 2022-03-02 09:30 | Outpatient (CLI) | payer MEDICARE, SELFPAY ==
[2022-03-02 10:03] LABS: Creatinine Urine 80.84 mg/dL (40-278); Microalbumin Urine Random 24.3 mg/L
[2022-03-02 10:06] LABS: Hemoglobin A1C 7.8 % (<5.7)
[2022-03-02 10:25] LABS: Alanine Aminotransferase 40 U/L (14-59); Albumin Level 3.6 g/dL (3.4-5.0); Alkaline Phosphatase 148 U/L (46-116); Anion Gap 8 mmol/L (8-16); Aspartate Amino Transferase 20 U/L (15-37); Bilirubin,Total 0.5 mg/dL (0.00-1.00); Blood Urea Nitrogen 23 mg/dL (7-18); Carbon Dioxide 28 mmol/L (21-32); Chloride 102 mmol/L (98-108); Estimated Glomerular Filt Rate 42; Free T3 2.49 pg/mL (2.18-3.98); Free T4 Free Thyroxine 1.28 ng/dL (0.76-1.46); Glucose 196 mg/dL (70-99); Iron 51 ug/dL (50-170); Osmolality Calculated 294 mOsm/kg (285-295); Percent Iron Saturation 14 % (12-57); Potassium 4.1 mmol/L (3.5-5.1); Sodium 138 mmol/L (136-145); Thyroid Stimulating Hormone 0.06 uIU/mL (0.36-3.74); Total Protein 6.9 g/dL (6.4-8.2)
[2022-03-06 02:22] LABS: Thyroid Peroxidase Antibodies 62 IU/mL (<9)
== END 2022-03-02 09:31 | disposition home or self-care (01) ==
LOC: CHSLAB 09:33
PROVIDERS: PCP Internal Medicine; Visit Provider Nurse Practitioner
DX: R94.6 Abnormal results of thyroid function studies (principal); E11.65 Type 2 diabetes mellitus with hyperglycemia; E61.1 Iron deficiency
CPT/HCPCS: 36415; 80053; 82043; 83036; 83540; 83550; 84439; 84443; 84481; 86376

== ENCOUNTER 2022-04-22 08:50 | Outpatient (CLI) | payer MEDICARE, SELFPAY ==
[2022-04-22 09:00] LABS: Basophils Absolute Auto 0.01 K/mm3 (0.00-0.10); Basophils Percent Auto 0.1 % (0.0-1.0); Eosinophils Absolute Auto 0.68 K/mm3 (0.02-0.50); Eosinophils Percent Auto 6.9 % (1.0-6.0); Hematocrit 36.2 % (35.0-42.0); Hemoglobin 12.1 g/dL (11.7-13.8); Immature Granulocyte Absolute 0.05 K/mm3 (0.00-0.00); Immature Granulocyte Percent A 0.5 % (0.0-0.0); Lymphocytes Absolute Auto 2.34 K/mm3 (1.10-4.50); Lymphocytes Percent Auto 23.9 % (18.0-42.0); Mean Corpuscular HGB Conc 33.4 g/dL (32.0-36.0); Mean Corpuscular Hemoglobin 27.8 pg (27.0-31.0); Mean Corpuscular Volume 83.2 fL (78.0-102.0); Mean Platelet Volume 9.8 fl (9.2-11.8); Monocytes Percent Auto 9.2 % (2.0-11.0); Neutrophils Absolute Auto 5.8 K/mm3 (1.7-7.2); Neutrophils Percent Auto 59.4 % (50.0-70.0); Platelet Count Result 332 K/mm3 (150-420); Red Blood Count 4.35 M/mm3 (4.20-5.40); Red Cell Distribution Width 12.9 % (11.6-14.4); White Blood Count 9.8 K/mm3 (4.8-10.8)
[2022-04-22 09:53] LABS: Cholesterol 131 mg/dL (0-200); HDL Direct 43 mg/dL (40-60); LDL Cholesterol Calculated 69 mg/dL (<130); Triglycerides 96 mg/dL (0-150)
== END 2022-04-22 08:51 | disposition home or self-care (01) ==
LOC: CHSLAB 08:53
PROVIDERS: PCP Internal Medicine; Visit Provider Internal Medicine
DX: I10 Essential (primary) hypertension (principal)
CPT/HCPCS: 36415; 80061; 85025

== ENCOUNTER 2022-07-08 09:17 | Outpatient (CLI) | payer MEDICARE, SELFPAY ==
[2022-07-08 10:03] LABS: Hemoglobin A1C 9.9 % (<5.7)
[2022-07-08 10:06] LABS: Creatinine Urine 87.47 mg/dL (40-278)
[2022-07-08 10:08] LABS: MALB Creatinine Ratio 121.4 mg/g (0-30); Microalbumin Urine Random 106.2 mg/L
[2022-07-08 10:35] LABS: Alanine Aminotransferase 51 U/L (14-59); Albumin Level 3.6 g/dL (3.4-5.0); Alkaline Phosphatase 168 U/L (46-116); Anion Gap 8 mmol/L (8-16); Aspartate Amino Transferase 23 U/L (15-37); Bilirubin,Total 0.5 mg/dL (0.00-1.00); Blood Urea Nitrogen 23 mg/dL (7-18); Calcium 10.5 mg/dL (8.5-10.1); Carbon Dioxide 29 mmol/L (21-32); Chloride 101 mmol/L (98-108); Estimated Glomerular Filt Rate 43; Free T3 2.41 pg/mL (2.18-3.98); Free T4 Free Thyroxine 1.21 ng/dL (0.76-1.46); Glucose 270 mg/dL (70-99); Iron 62 ug/dL (50-170); Osmolality Calculated 299 mOsm/kg (285-295); Percent Iron Saturation 19 % (12-57); Potassium 4.3 mmol/L (3.5-5.1); Sodium 138 mmol/L (136-145); Thyroid Stimulating Hormone 0.19 uIU/mL (0.36-3.74); Total Protein 7.1 g/dL (6.4-8.2)
[2022-07-11 04:46] LABS: Thyroid Peroxidase Antibodies 53 IU/mL (<9)
== END 2022-07-08 09:18 | disposition home or self-care (01) ==
LOC: CHSLAB 09:20
PROVIDERS: PCP Internal Medicine; Visit Provider Nurse Practitioner
DX: E11.65 Type 2 diabetes mellitus with hyperglycemia (principal); R94.6 Abnormal results of thyroid function studies; E61.1 Iron deficiency
CPT/HCPCS: 36415; 80053; 82043; 83036; 83540; 83550; 84439; 84443; 84481; 86376

== ENCOUNTER 2022-08-24 10:20 | Outpatient (CLI) | payer MEDICARE, SELFPAY ==
[2022-08-24 10:46] LABS: Basophils Absolute Auto 0.01 K/mm3 (0.00-0.10); Basophils Percent Auto 0.1 % (0.0-1.0); Eosinophils Absolute Auto 0.68 K/mm3 (0.02-0.50); Eosinophils Percent Auto 7.7 % (1.0-6.0); Hematocrit 38.3 % (35.0-42.0); Hemoglobin 12.7 g/dL (11.7-13.8); Immature Granulocyte Absolute 0.03 K/mm3 (0.00-0.00); Immature Granulocyte Percent A 0.3 % (0.0-0.0); Lymphocytes Absolute Auto 2.24 K/mm3 (1.10-4.50); Lymphocytes Percent Auto 25.5 % (18.0-42.0); Mean Corpuscular HGB Conc 33.2 g/dL (32.0-36.0); Mean Corpuscular Hemoglobin 28.4 pg (27.0-31.0); Mean Corpuscular Volume 85.7 fL (78.0-102.0); Mean Platelet Volume 9.9 fl (9.2-11.8); Monocytes Absolute Auto 0.64 K/mm3 (0.10-0.90); Monocytes Percent Auto 7.3 % (2.0-11.0); Neutrophils Absolute Auto 5.2 K/mm3 (1.7-7.2); Neutrophils Percent Auto 59.1 % (50.0-70.0); Platelet Count Result 348 K/mm3 (150-420); Red Blood Count 4.47 M/mm3 (4.20-5.40); Red Cell Distribution Width 12.5 % (11.6-14.4); White Blood Count 8.8 K/mm3 (4.8-10.8)
[2022-08-24 10:53] LABS: Add Urine Microscopic? YES; Appearance Urine Clear (Clear); Bacteria Urine 1+ /hpf; Bilirubin Urine Negative (Negative); Blood Urine Negative (Negative); Color Urine Light Yellow (Yellow); Glucose Urine UA Trace (Negative); Ketones Urine Negative (Negative); Leukocyte Esterase Ur 1+ (Negative); Nitrate Urine Negative (Negative); Protein Urine Negative (Negative); RBC Urine None seen /hpf (0-2); Squamous Epithelial Cell Urine Few /hpf (Few); Urobilinogen Urine 0.2 mg/dL (0.2-1.0)
[2022-08-24 10:59] LABS: Creatinine Urine 32.03 mg/dL (40-278); MALB Creatinine Ratio 40.5 mg/g (0-30); Microalbumin Urine Random < 13.0 mg/L; Total Protein Urine Random 10.6 mg/dL (0.0-11.9)
[2022-08-24 11:05] LABS: Albumin Level 3.7 g/dL (3.4-5.0); Anion Gap 9 mmol/L (8-16); Blood Urea Nitrogen 22 mg/dL (7-18); Calcium 10.4 mg/dL (8.5-10.1); Carbon Dioxide 29 mmol/L (21-32); Chloride 101 mmol/L (98-108); Estimated Glomerular Filt Rate 46; Glucose 209 mg/dL (70-99); Magnesium 1.6 mg/dL (1.8-2.4); Osmolality Calculated 297 mOsm/kg (285-295); Phosphorus 3.8 mg/dL (2.6-4.7); Potassium 4.2 mmol/L (3.5-5.1); Sodium 139 mmol/L (136-145)
[2022-08-24 11:06] LABS: CRP < 0.5 mg/dL (0.0-0.9)
[2022-08-24 11:49] LABS: Erythrocyte Sedimentation Rate 30 mm/hr (0-20)
[2022-08-27 09:18] LABS: Complement C3 145 mg/dL (83-193)
[2022-08-28 18:21] LABS: Albumin 3.8 g/dL (3.8-4.8); Alpha 1 Globulin 0.3 g/dL (0.2-0.3); Alpha 2 Globulin 0.9 g/dL (0.5-0.9); Beta 1 Globulin 0.5 g/dL (0.4-0.6); Gamma Globulin 1.1 g/dL (0.8-1.7); Protein, Total 6.9 g/dL (6.1-8.1)
[2022-08-28 21:30] LABS: Parathyroid Intact 32 pg/mL (14-64)
[2022-08-30 10:46] LABS: Kappa\\Lambda Light Chains 1.68 (0.26-1.65); Lambda Light Chain 25.9 mg/L (5.7-26.3)
[2022-08-31 13:41] LABS: Vitamin D 25 Hydroxy 32 ng/mL (30-100)
== END 2022-08-24 10:21 | disposition home or self-care (01) ==
PROVIDERS: PCP Internal Medicine
DX: N18.31 Chronic kidney disease, stage 3a (principal); G47.33 Obstructive sleep apnea (adult) (pediatric); I51.9 Heart disease, unspecified; L50.8 Other urticaria; I10 Essential (primary) hypertension; E11.22 Type 2 diabetes mellitus with diabetic chronic kidney disease; E78.00 Pure hypercholesterolemia, unspecified; E03.8 Other specified hypothyroidism
CPT/HCPCS: 36415; 80069; 81001; 81050; 82043; 82306; 83735; 83883; 83970; 84155; 84156; 84165; 85025; 85652; 86140; 86160

== ENCOUNTER 2022-10-18 09:11 | Outpatient (CLI) | payer MEDICARE, SELFPAY ==
[2022-10-18 09:51] LABS: Creatinine Urine 142.55 mg/dL (40-278); MALB Creatinine Ratio 17.4 mg/g (0-30); Microalbumin Urine Random 24.9 mg/L
[2022-10-18 09:53] LABS: Hemoglobin A1C 7.3 % (<5.7)
[2022-10-18 10:19] LABS: Alanine Aminotransferase 50 U/L (14-59); Albumin Level 3.6 g/dL (3.4-5.0); Alkaline Phosphatase 151 U/L (46-116); Anion Gap 5 mmol/L (8-16); Aspartate Amino Transferase 23 U/L (15-37); Bilirubin,Total 0.4 mg/dL (0.00-1.00); Blood Urea Nitrogen 20 mg/dL (7-18); Calcium 10.2 mg/dL (8.5-10.1); Carbon Dioxide 28 mmol/L (21-32); Chloride 102 mmol/L (98-108); Cholesterol 128 mg/dL (0-200); Estimated Glomerular Filt Rate 52; Free T3 2.58 pg/mL (2.18-3.98); Free T4 Free Thyroxine 1.19 ng/dL (0.76-1.46); Glucose 166 mg/dL (70-99); HDL Direct 36 mg/dL (40-60); LDL Cholesterol Calculated 59 mg/dL (<130); Osmolality Calculated 286 mOsm/kg (285-295); Sodium 135 mmol/L (136-145); Thyroid Stimulating Hormone 0.09 uIU/mL (0.36-3.74); Triglycerides 167 mg/dL (0-150)
== END 2022-10-18 09:12 | disposition home or self-care (01) ==
LOC: CHSLAB 09:15
PROVIDERS: PCP Internal Medicine; Visit Provider Internal Medicine Endocrinology, Diabetes & Metabolism
DX: E11.65 Type 2 diabetes mellitus with hyperglycemia (principal); E03.9 Hypothyroidism, unspecified
CPT/HCPCS: 36415; 80053; 80061; 82043; 83036; 84439; 84443; 84481

== ENCOUNTER 2022-10-28 07:53 | Outpatient (CLI) | payer MEDICARE, SELFPAY ==
[2022-11-02 17:52] LABS: Dexamethasone 536 ng/dL
[2022-11-05 06:02] LABS: Cortisol Baseline 1.4 mcg/dL (***)
== END 2022-10-28 07:54 | disposition home or self-care (01) ==
LOC: CHSLAB 07:55
PROVIDERS: PCP Internal Medicine; Visit Provider Internal Medicine Endocrinology, Diabetes & Metabolism
DX: R63.5 Abnormal weight gain (principal)
CPT/HCPCS: 36415; 80299; 82533

== ENCOUNTER 2022-10-31 08:28 | Outpatient (CLI) | payer MEDICARE, SELFPAY ==
[2022-11-03 14:10] LABS: DHEA-Sulfate 23 mcg/dL (12-133)
[2022-11-09 16:40] LABS: PRA 3.19 ng/mL/h (0.25-5.82)
== END 2022-10-31 08:29 | disposition home or self-care (01) ==
LOC: CHSLAB 08:30
PROVIDERS: PCP Internal Medicine; Visit Provider Internal Medicine Endocrinology, Diabetes & Metabolism
DX: I10 Essential (primary) hypertension (principal)
CPT/HCPCS: 36415; 82088; 82627; 84244

== ENCOUNTER 2023-02-07 09:20 | Outpatient (CLI) | payer MEDICARE, SELFPAY ==
[2023-02-07 09:53] LABS: Creatinine Urine 71.26 mg/dL (40-278); MALB Creatinine Ratio 30.5 mg/g (0-30); Microalbumin Urine Random 21.8 mg/L
[2023-02-07 09:55] LABS: Hemoglobin A1C 5.3 % (<5.7)
[2023-02-07 10:49] LABS: Alanine Aminotransferase 44 U/L (14-59); Albumin Level 3.4 g/dL (3.4-5.0); Alkaline Phosphatase 150 U/L (46-116); Anion Gap 10 mmol/L (8-16); Aspartate Amino Transferase 22 U/L (15-37); Bilirubin,Total 0.4 mg/dL (0.00-1.00); Blood Urea Nitrogen 13 mg/dL (7-18); Calcium 10.5 mg/dL (8.5-10.1); Carbon Dioxide 26 mmol/L (21-32); Chloride 105 mmol/L (98-108); Estimated Glomerular Filt Rate 60; Free T3 2.51 pg/mL (2.18-3.98); Free T4 Free Thyroxine 1.45 ng/dL (0.76-1.46); Glucose 96 mg/dL (70-99); Osmolality Calculated 292 mOsm/kg (285-295); Potassium 4.2 mmol/L (3.5-5.1); Sodium 141 mmol/L (136-145); Thyroid Stimulating Hormone 0.02 uIU/mL (0.36-3.74); Total Protein 6.7 g/dL (6.4-8.2)
[2023-02-09 14:47] LABS: Ionized Calcium 5.4 mg/dL (4.7-5.5)
[2023-02-09 15:58] LABS: Albumin 3.6 g/dL (3.8-4.8); Alpha 1 Globulin 0.4 g/dL (0.2-0.3); Alpha 2 Globulin 0.9 g/dL (0.5-0.9); Beta 1 Globulin 0.5 g/dL (0.4-0.6); Protein, Total 6.7 g/dL (6.1-8.1)
[2023-02-09 18:39] LABS: Parathyroid Intact 36 pg/mL (14-64)
[2023-02-11 22:50] LABS: Vitamin D 25 Hydroxy 34 ng/mL (30-100)
== END 2023-02-07 09:21 | disposition home or self-care (01) ==
PROVIDERS: PCP Internal Medicine; Visit Provider Internal Medicine Endocrinology, Diabetes & Metabolism
DX: E11.9 Type 2 diabetes mellitus without complications (principal); E83.52 Hypercalcemia; E03.9 Hypothyroidism, unspecified
CPT/HCPCS: 36415; 80053; 82043; 82306; 82330; 83036; 83970; 84100; 84155; 84165; 84439; 84443; 84481

== ENCOUNTER 2023-02-14 08:35 | Outpatient (CLI) | payer MEDICARE, SELFPAY ==
--- NOTE | ~2023-02-14 | DEXA_ITS ---
Bone Density Report Name: SACHI RAMIREZ Age: 72 Sex: Female Ethnicity: White Date of : 1950 Indication: postmenopausal; screening for osteoporosis; prior fracture; Referring Provider: RICKIE JAVIER Study: Bone densitometry was performed. Exam Date: February 14, 2023 Accession number: [id number] Bone Density: Region BMD T-score Z-score Classification AP Spine(L1-L4) 1.254 1.9 4.0 Normal Femoral Neck (Left) 0.905 0.5 2.3 Normal Total Hip (Left) 1.152 1.7 3.3 Normal Femoral Neck (Right) 0.907 0.5 2.3 Normal Total Hip (Right) 1.221 2.3 3.8 Normal Total Hip Mean 1.187 2.0 3.6 Normal World Health Organization criteria for BMD impression classify patients as: Normal (T-score at or above -1.0), Osteopenia (T-score between -1.0 and -2.5), or Osteoporosis (T-score at or below -2.5). 10-year Fracture Risk: FRAX not reported because: All T-scores for Spine Total, Hip Total, Femoral Neck at or above -1.0 Previous Exams: Region Exam Age BMD T-score BMD Change BMD Change Date g/cm2 vs Baseline vs Previous AP Spine (L1-L4) 02/14/2023 72 1.254 1.9 -0.018 (-1.4%) -0.073 (-5.5%) 09/18/2020 70 1.327 2.5 0.055 (4.3%)# -0.020 (-1.5%) 08/24/2018 68 1.346 2.7 0.075 (5.9%)* 0.028 (2.1%)# 01/29/2016 65 1.319 2.5 0.047 (3.7%)# 0.047 (3.7%)# 12/06/2013 63 1.272 2.0 Total Hip(Left) 02/14/2023 72 1.152 1.7 -0.174 (-13.2% 0.015 (1.3%) 09/18/2020 70 1.137 1.6 -0.190 (-14.3% -0.051 (-4.3%) 08/24/2018 68 1.188 2.0 -0.139 (-10.5% -0.007 (-0.6%) 01/29/2016 65 1.195 2.1 -0.132 (-9.9%) -0.132 (-9.9%) 12/06/2013 63 1.327 3.2 Total Hip(Right) 02/14/2023 72 1.221 2.3 -0.062 (-4.8%) 0.016 (1.3%) 09/18/2020 70 1.205 2.2 -0.078 (-6.1%) -0.080 (-6.2%) 08/24/2018 68 1.285 2.8 0.002 (0.1%) 0.020 (1.6%)# 01/29/2016 65 1.265 2.6 -0.018 (-1.4%) -0.018 (-1.4%) 12/06/2013 63 1.283 2.8 *Denotes significance at 95% confidence level, LSC for AP Spine = 0.022 g/cm2, LSC for Total Hip = 0.027 g/cm2 # Denotes dissimilar scan types or analysis methods Clinical Information Provided by Patient: Has had a low trauma fracture Patient maximum height was 63.0 Menopause Age: 52 Drinks caffeinated beverages Onset of menses at age 13 Number of children 2 Missed period for more than 6 months in a row Impression: The patient has normal bone mass. Th
--- NOTE | ~2023-02-14 | MM_ITS ---
EXAMINATION: MM screening sheryl BI w [facility] HISTORY: Screening mammogram TECHNIQUE: Craniocaudal and mediolateral oblique 3-D tomosynthesis images were obtained and synthetic 2-D images were generated. CAD analysis was submitted and interpreted. COMPARISON: 10/12/2021, 09/18/2020, 09/10/2019 bilateral screening mammogram examinations BREAST PARENCHYMAL COMPOSITION: The breasts are almost entirely fatty. FINDINGS: There is no evidence of suspicious mass, calcification, or architectural distortion to sugg est malignancy in either breast. There has been no suspicious interval change. IMPRESSION: 1. No mammographic evidence of malignancy. 2. Recommend routine screening mammography in one year. BI-RADS Category 1: Negative Reviewed, dictated and finalized at location A.
== END 2023-02-14 08:36 | disposition home or self-care (01) ==
PROVIDERS: PCP Internal Medicine; Visit Provider Internal Medicine Endocrinology, Diabetes & Metabolism
DX: Z12.31 Encounter for screening mammogram for malignant neoplasm of breast (principal); Z78.0 Asymptomatic menopausal state
CPT/HCPCS: 77063; 77067; 77080

== ENCOUNTER 2023-02-28 09:07 | Outpatient (CLI) | payer MEDICARE, SELFPAY ==
[2023-02-28 09:31] LABS: Basophils Absolute Auto 0.02 K/mm3 (0.00-0.10); Basophils Percent Auto 0.2 % (0.0-1.0); Eosinophils Absolute Auto 0.75 K/mm3 (0.02-0.50); Eosinophils Percent Auto 7.8 % (1.0-6.0); Hematocrit 36.8 % (35.0-42.0); Hemoglobin 12.2 g/dL (11.7-13.8); Immature Granulocyte Absolute 0.04 K/mm3 (0.00-0.00); Immature Granulocyte Percent A 0.4 % (0.0-0.0); Lymphocytes Absolute Auto 2.01 K/mm3 (1.10-4.50); Lymphocytes Percent Auto 20.9 % (18.0-42.0); Mean Corpuscular HGB Conc 33.2 g/dL (32.0-36.0); Mean Corpuscular Hemoglobin 28.1 pg (27.0-31.0); Mean Corpuscular Volume 84.8 fL (78.0-102.0); Mean Platelet Volume 9.5 fl (9.2-11.8); Monocytes Absolute Auto 0.79 K/mm3 (0.10-0.90); Monocytes Percent Auto 8.2 % (2.0-11.0); Neutrophils Percent Auto 62.5 % (50.0-70.0); Platelet Count Result 357 K/mm3 (150-420); Red Blood Count 4.34 M/mm3 (4.20-5.40); White Blood Count 9.6 K/mm3 (4.8-10.8)
[2023-02-28 09:34] LABS: Appearance Urine Clear (Clear); Bilirubin Urine Negative (Negative); Blood Urine Negative (Negative); Color Urine Light Yellow (Yellow); Glucose Urine UA Negative (Negative); Ketones Urine Negative (Negative); Leukocyte Esterase Ur 1+ (Negative); Nitrate Urine Negative (Negative); Protein Urine Negative (Negative); Urobilinogen Urine 0.2 mg/dL (0.2-1.0)
[2023-02-28 09:38] LABS: Add Urine Microscopic? YES; RBC Urine None seen /hpf (0-2)
[2023-02-28 09:39] LABS: Bacteria Urine 1+ /hpf; Squamous Epithelial Cell Urine Few /hpf (Few)
[2023-02-28 09:43] LABS: MALB Creatinine Ratio 44.9 mg/g (0-30); Microalbumin Urine Random < 13.0 mg/L; Total Protein Urine Random < 7.0 mg/dL (0.0-11.9); Ur Ttl Prot Creatinine Ratio 0.24 mg/mg (0-0.20)
[2023-02-28 09:47] LABS: Hemoglobin A1C 5.6 % (<5.7)
[2023-02-28 10:02] LABS: Albumin Level 3.6 g/dL (3.4-5.0); Anion Gap 10 mmol/L (8-16); Blood Urea Nitrogen 16 mg/dL (7-18); Calcium 10.3 mg/dL (8.5-10.1); Carbon Dioxide 28 mmol/L (21-32); Chloride 103 mmol/L (98-108); Cholesterol 126 mg/dL (0-200); Estimated Glomerular Filt Rate 58; Glucose 101 mg/dL (70-99); HDL Direct 42 mg/dL (40-60); LDL Cholesterol Calculated 66 mg/dL (<130); Osmolality Calculated 293 mOsm/kg (285-295); Phosphorus 3.5 mg/dL (2.6-4.7); Potassium 4.2 mmol/L (3.5-5.1); Sodium 141 mmol/L (136-145); Triglycerides 91 mg/dL (0-150)
[2023-03-03 11:35] LABS: Vitamin D 25 Hydroxy 38 ng/mL (30-100)
== END 2023-02-28 09:08 | disposition home or self-care (01) ==
LOC: CHSLAB 09:12
PROVIDERS: PCP Internal Medicine; Visit Provider Internal Medicine Nephrology
DX: N18.31 Chronic kidney disease, stage 3a (principal); G47.33 Obstructive sleep apnea (adult) (pediatric); I51.9 Heart disease, unspecified; L50.8 Other urticaria; I10 Essential (primary) hypertension; E11.22 Type 2 diabetes mellitus with diabetic chronic kidney disease; E78.00 Pure hypercholesterolemia, unspecified
CPT/HCPCS: 36415; 80061; 80069; 81001; 82043; 82306; 82570; 83036; 83735; 84156; 85025

== ENCOUNTER 2023-08-29 09:21 | Outpatient (CLI) | payer MEDICARE, SELFPAY ==
[2023-08-29 10:03] LABS: Basophils Absolute Auto 0.01 K/mm3 (0.00-0.10); Basophils Percent Auto 0.1 % (0.0-1.0); Eosinophils Absolute Auto 0.57 K/mm3 (0.02-0.50); Hematocrit 35.9 % (35.0-42.0); Hemoglobin 11.6 g/dL (11.7-13.8); Immature Granulocyte Absolute 0.02 K/mm3 (0.00-0.00); Immature Granulocyte Percent A 0.3 % (0.0-0.0); Lymphocytes Absolute Auto 1.86 K/mm3 (1.10-4.50); Lymphocytes Percent Auto 26.2 % (18.0-42.0); Mean Corpuscular HGB Conc 32.3 g/dL (32-36); Mean Corpuscular Hemoglobin 28.1 pg (27.0-31.0); Mean Corpuscular Volume 86.9 fL (78.0-102.0); Mean Platelet Volume 10.1 fl (9.2-11.8); Monocytes Absolute Auto 0.57 K/mm3 (0.10-0.90); Neutrophils Absolute Auto 4.07 K/mm3 (1.70-7.20); Neutrophils Percent Auto 57.4 % (50.0-70.0); Platelet Count Result 282 K/mm3 (150-420); Red Blood Count 4.13 M/mm3 (4.20-5.40); Red Cell Distribution Width 13.2 % (11.6-14.4); White Blood Count 7.1 K/mm3 (4.8-10.8)
[2023-08-29 10:04] LABS: Bilirubin Urine Negative (Negative); Blood Urine Negative (Negative); Color Urine Light Yellow (Yellow); Glucose Urine UA Negative (Negative); Ketones Urine Negative (Negative); Leukocyte Esterase Ur 1+ (Negative); Nitrate Urine Positive (Negative); Protein Urine Negative (Negative); Specific Grav Ur 1.025 (1.010-1.020); Urobilinogen Urine 0.2 mg/dL (0.2-1.0)
[2023-08-29 10:08] LABS: Add Urine Microscopic? YES; Appearance Urine Cloudy (Clear); Bacteria Urine 2+ /hpf; RBC Urine None seen /hpf (0-2); Squamous Epithelial Cell Urine Few /hpf (Few)
[2023-08-29 10:16] LABS: Creatinine Urine 94.25 mg/dL (40-278); MALB Creatinine Ratio 20.9 mg/g (0-30); Microalbumin Urine Random 19.7 mg/L; Total Protein Urine Random 20.2 mg/dL (0.0-11.9); Ur Ttl Prot Creatinine Ratio 0.21 mg/mg (0-0.20)
[2023-08-29 11:11] LABS: Albumin Level 3.5 g/dL (3.4-5.0); Anion Gap 9 mmol/L (4-12); Blood Urea Nitrogen 23 mg/dL (7-18); Calcium 9.8 mg/dL (8.5-10.1); Carbon Dioxide 28 mmol/L (21-32); Chloride 108 mmol/L (98-108); Cholesterol 147 mg/dL (0-200); Estimated Glomerular Filt Rate 45; Glucose 131 mg/dL (70-99); HDL Direct 46 mg/dL (40-60); LDL Cholesterol Calculated 76 mg/dL (<130); Magnesium 1.7 mg/dL (1.8-2.4); Osmolality Calculated 305 mOsm/kg (285-295); Potassium 4.5 mmol/L (3.5-5.1); Sodium 145 mmol/L (136-145); Triglycerides 125 mg/dL (0-150)
[2023-08-31 01:43] LABS: Vitamin D 25 Hydroxy 46 ng/mL (30-100)
== END 2023-08-29 09:22 | disposition home or self-care (01) ==
LOC: CHSLAB 09:25
PROVIDERS: PCP Internal Medicine; Visit Provider Internal Medicine Nephrology
DX: N18.31 Chronic kidney disease, stage 3a (principal); G47.33 Obstructive sleep apnea (adult) (pediatric); I51.9 Heart disease, unspecified; I25.84 Coronary atherosclerosis due to calcified coronary lesion; L50.8 Other urticaria; I10 Essential (primary) hypertension; E11.22 Type 2 diabetes mellitus with diabetic chronic kidney disease
CPT/HCPCS: 36415; 80061; 80069; 81001; 82043; 82306; 82570; 83036; 83735; 84156; 85025

== ENCOUNTER 2024-02-12 10:14 | Outpatient (CLI) | payer MEDICARE, SELFPAY ==
--- NOTE | ~2024-02-12 | XR_ITS ---
Left Shoulder Technique: AP and scapular Y views were obtained. Clinical History: Pain Findings: No fracture or dislocation is seen. Osseous alignment is anatomic. The glenohumeral and acr omioclavicular joint spaces are preserved. Soft tissues are unremarkable. Impression: Unremarkable left shoulder radiographs. Reviewed, dictated and finalized at [facility]. Impression: Unremarkable left shoulder radiographs.
--- NOTE | ~2024-02-12 | XR_ITS ---
Left Hand Technique: PA, oblique, and lateral views were obtained. Clinical History: Pain Findings: No acute fracture or dislocation is seen. Osseous alignment is anatomic. Joint spaces are p reserved. Soft tissues are unremarkable. Impression: Unremarkable left hand. Reviewed, dictated and finalized at location M. Impression: Unremarkable left hand.
[2024-02-12 10:31] LABS: Hematocrit 35.2 % (35.0-42.0); Hemoglobin 11.9 g/dL (11.7-13.8); Mean Corpuscular HGB Conc 33.8 g/dL (32-36); Mean Corpuscular Hemoglobin 28.7 pg (27.0-31.0); Mean Corpuscular Volume 84.8 fL (78.0-102.0); Mean Platelet Volume 9.5 fl (9.2-11.8); Platelet Count Result 341 K/mm3 (150-420); Red Blood Count 4.15 M/mm3 (4.20-5.40); Red Cell Distribution Width 12.7 % (11.6-14.4); White Blood Count 8.5 K/mm3 (4.8-10.8)
[2024-02-12 11:17] LABS: Alanine Aminotransferase 26 U/L (14-59); Albumin Level 3.5 g/dL (3.4-5.0); Alkaline Phosphatase 138 U/L (46-116); Anion Gap 7 mmol/L (4-12); Aspartate Amino Transferase 16 U/L (15-37); Bilirubin,Total 0.4 mg/dL (0.00-1.00); Blood Urea Nitrogen 18 mg/dL (7-18); CRP 0.5 mg/dL (0.0-0.9); Carbon Dioxide 29 mmol/L (21-32); Chloride 104 mmol/L (98-108); Estimated Glomerular Filt Rate 43; Glucose 149 mg/dL (70-99); Osmolality Calculated 294 mOsm/kg (285-295); Potassium 4.1 mmol/L (3.5-5.1); Sodium 140 mmol/L (136-145); Total Protein 7.2 g/dL (6.4-8.2); Uric Acid 6.1 mg/dL (2.6-6.0)
[2024-02-12 11:28] LABS: Erythrocyte Sedimentation Rate 46 mm/hr (0-20)
[2024-02-14 15:13] LABS: Anti Cyclic Citrullinated Pept <16 UNITS
== END 2024-02-12 10:15 | disposition home or self-care (01) ==
LOC: CHSLAB 10:18
PROVIDERS: PCP Internal Medicine; Visit Provider Internal Medicine
DX: M25.512 Pain in left shoulder (principal); M25.542 Pain in joints of left hand
CPT/HCPCS: 36415; 73030; 73130; 80053; 84550; 85027; 85652; 86140; 86200

== ENCOUNTER 2024-02-28 09:47 | Outpatient (CLI) | payer MEDICARE, SELFPAY ==
--- NOTE | ~2024-02-28 | MM_ITS ---
EXAMINATION: MM screening sheryl BI w [facility] HISTORY: Screening TECHNIQUE: Craniocaudal and mediolateral oblique 3-D tomosynthesis images were obtained and synthetic 2-D images were generated. CAD analysis was submitted and interpreted. COMPARISON: Comparison to multiple prior studies sequentially, with oldest reviewed study dated 07/18. BREAST PARENCHYMAL COMPOSITION: Not dense: There are scattered areas of fibroglandular density. FINDINGS: There is no evidence of suspicious mass, calcification, or architectural distortion to sugg est malignancy in either breast. There has been no suspicious interval change. IMPRESSION: 1. No mammographic evidence of malignancy. 2. Recommend routine screening mammography in one year. BI-RADS Category 1: Negative Reviewed, dictated and finalized at location B.
== END 2024-02-28 09:48 | disposition home or self-care (01) ==
LOC: ANHIMG 09:50
PROVIDERS: PCP Internal Medicine; Visit Provider Obstetrics & Gynecology
DX: Z12.31 Encounter for screening mammogram for malignant neoplasm of breast (principal)
CPT/HCPCS: 77063; 77067

== ENCOUNTER 2024-03-04 10:46 | Outpatient (CLI) | payer MEDICARE, SELFPAY ==
[2024-03-04 11:12] LABS: Hematocrit 36.3 % (35.0-42.0); Hemoglobin 12.2 g/dL (11.7-13.8); Mean Corpuscular HGB Conc 33.6 g/dL (32-36); Mean Corpuscular Hemoglobin 28.6 pg (27.0-31.0); Mean Platelet Volume 10.1 fl (9.2-11.8); Platelet Count Result 249 K/mm3 (150-420); Red Blood Count 4.27 M/mm3 (4.20-5.40); White Blood Count 6.2 K/mm3 (4.8-10.8)
[2024-03-04 11:15] LABS: Add Urine Microscopic? YES; Appearance Urine Clear (Clear); Bilirubin Urine Negative (Negative); Blood Urine Negative (Negative); Color Urine Light Yellow (Yellow); Glucose Urine UA Negative (Negative); Ketones Urine Negative (Negative); Leukocyte Esterase Ur 2+ (Negative); Nitrate Urine Positive (Negative); Protein Urine Trace (Negative); Urobilinogen Urine 0.2 mg/dL (0.2-1.0); pH Urine 5.5 (5.0-8.0)
[2024-03-04 11:21] LABS: Creatinine Urine 89.98 mg/dL (40-278); Total Protein Urine Random 35.4 mg/dL (0.0-11.9); Ur Ttl Prot Creatinine Ratio 0.39 mg/mg (0-0.20)
[2024-03-04 11:22] LABS: Bacteria Urine 3+ /hpf; RBC Urine None seen /hpf (0-2); Squamous Epithelial Cell Urine Few /hpf (Few); WBC Urine >75 /hpf (0-3)
[2024-03-04 11:52] LABS: Albumin Level 3.6 g/dL (3.4-5.0); Anion Gap 7 mmol/L (4-12); Blood Urea Nitrogen 15 mg/dL (7-18); Calcium 9.7 mg/dL (8.5-10.1); Carbon Dioxide 31 mmol/L (21-32); Chloride 107 mmol/L (98-108); Estimated Glomerular Filt Rate 49; Glucose 106 mg/dL (70-99); Magnesium 1.6 mg/dL (1.8-2.4); Osmolality Calculated 300 mOsm/kg (285-295); Phosphorus 3.2 mg/dL (2.6-4.7); Potassium 4.1 mmol/L (3.5-5.1); Sodium 145 mmol/L (136-145)
[2024-03-06 06:58] LABS: Vitamin D 25 Hydroxy 51 ng/mL (30-100)
== END 2024-03-04 10:47 | disposition home or self-care (01) ==
LOC: CHSLAB 10:51
PROVIDERS: PCP Internal Medicine; Visit Provider Internal Medicine Nephrology
DX: N18.31 Chronic kidney disease, stage 3a (principal); I51.9 Heart disease, unspecified; G47.33 Obstructive sleep apnea (adult) (pediatric); I25.84 Coronary atherosclerosis due to calcified coronary lesion; L50.8 Other urticaria; I10 Essential (primary) hypertension; E11.22 Type 2 diabetes mellitus with diabetic chronic kidney disease; E78.00 Pure hypercholesterolemia, unspecified; E03.8 Other specified hypothyroidism
CPT/HCPCS: 36415; 80069; 81001; 82306; 82570; 83735; 84156; 85027

== ENCOUNTER 2024-03-29 10:55 | Outpatient (RCR) | payer MEDICARE, SELFPAY ==
--- NOTE | 2024-04-02 09:26 | BUOTOPEVAL ---
Assessment and note entered by Danisha Voss, OT Evaluation Information Assessment Status Evaluation Diagnosis Trigger finger, left ring finger ICD-10 Condition Codes (OT) M79.642,M62.81 Subjective Information The patient reports that pain has been around for a few months. Reported Pain Level Pain Score 2: Self Report Assessment OT Clinical Summary The patient is a 73 year old female who was referred to outpatient OT due to pain in L hand at base of middle and ring fingers. The patient presents with diagnosis of trigger finger of ring finger of L hand. Her PMH includes but is not limited to bronchitis, cardiac, diabetes, HTN, carpal tunnel surgeries 1988, L wrist cyst removal 1992, Dequervain's/cyst R 2003 surgery. The patient demonstrates pain in L hand at base of middle and ring fingers, limited flexion/extension AROM to full ROM of digits 3-4, 2/10 pain in L hand during evaluation and demonstrates moderately impaired strength of L hand. The patient requires skilled OT to address deficits and return hand function to PLOF needed to perform ADLs/IADLS without discomfort. Plan of Care Interventions Therapeutic Exercise,Manual Therapy,Neuro Re- education,Therapeutic Activities,Hot Pack/Cold Pack,Electrical Stimulation,Sensory Integrative Techn,Self-Care/Home Management,Ultrasound OT Services Indicated Yes Treatment Frequency and 2x/week for 8 visits. Duration These treatments will address the objective and functional deficits as defined above. The patient will be advanced safely and appropriately in order for the patient to progress towards his/her prior level of function. Additional exercises will be introduced and as well as a comprehensive home exercise program upon discharge, if needed, ?to ensure carryover of functional gains achieved in the clinic. This treatment plan has been reviewed and agreement upon by the patient.
--- NOTE | 2024-04-02 09:26 | OPREHPOC ---
Outpatient Therapy Plan of Care This is a Multidisciplinary Plan of Care that may contain components documented by all disciplines (PT, OT, and ST.) OT Problem 1 OT Problem #1 Knowledge Deficit OT Goal 1 Goal / Goal Update Demonstrate 100% knowledge and return demonstration of UE HEP needed to avoid pain and perform ADLs. Target Visit 8 OT Problem 2 OT Problem #2 Pain OT Goal 1 Goal / Goal Update The patient will demonstrate decreased pain by reporting <2/10 pain during activity needed to avoid discomfort during daily tasks. Target Visit 8 OT Problem 3 OT Problem #3 Impaired Strength OT Goal 1 Goal / Goal Update The patient will demonstrate increased back tender strength of L hand by demonstrating >30 lbs of back tender strength and >8 lbs of lateral pinch strength needed to perform grooming tasks. Target Visit 8 OT Problem 4 OT Problem #4 Impaired Range of Motion OT Goal 1 Goal / Goal Update The patient will demonstrate 5 degrees increased digit flexion of L hand when making fist in order to maintain full ROM for ADLs. Target Visit 8
--- NOTE | 2024-05-03 10:49 | OTOPDC ---
Assessment and note entered by Danisha Voss, OT Evaluation Information Assessment Status Progress Diagnosis Trigger finger, left ring finger ICD-10 Condition Codes (OT) Generalized muscle weakness M62.81 Reported Pain Level Pain Score 1: Self Report Assessment OT Clinical Summary The patient demonstrates significant progress in digit ROM, pain, and strength of digital account director and pinch which have improved her ability to perform ADLs, making her bed, and homemaking tasks with decreased pain. She demonstrates no significant deficits and has improved with functional independence. The patient continues to have 1-3/10 pain that she reports is manageable. Therapist educated patient on continuation of PROM to 4th digit into flexion/extension, hand glides for mobility, and educated on yellow theraputty exercises for pinch and grasp exercises. The patient reports good understanding of HEP and is agreeable to discharge this date. Plan of Care OT Services Indicated No
--- NOTE | 2024-05-03 10:50 | OPREHPOC ---
Outpatient Therapy Plan of Care This is a Multidisciplinary Plan of Care that may contain components documented by all disciplines (PT, OT, and ST.) OT Problem 1 OT Problem #1 Knowledge Deficit OT Goal 1 Goal / Goal Update Demonstrate 100% knowledge and return demonstration of UE HEP needed to avoid pain and perform ADLs. GOAL MET; DISCONTINUED Target Visit 8 Progress Met OT Problem 2 OT Problem #2 Pain OT Goal 1 Goal / Goal Update The patient will demonstrate decreased pain by reporting <2/10 pain during activity needed to avoid discomfort during daily tasks. Patient reports 3/10 at times but mostly is 0-1/10 GOAL PARTIALLY MET; DISCONTINUE Target Visit 8 Progress Partially Met OT Problem 3 OT Problem #3 Impaired Strength OT Goal 1 Goal / Goal Update The patient will demonstrate increased adolescent specialist strength of L hand by demonstrating >30 lbs of adolescent specialist strength and >8 lbs of lateral pinch strength needed to perform grooming tasks. GOAL MET; DISCONTINUE Bookstore Manager: 40 Lateral pinch: 11 Target Visit 8 Progress Met OT Problem 4 OT Problem #4 Impaired Range of Motion OT Goal 1 Goal / Goal Update The patient will demonstrate 5 degrees increased digit flexion of L hand when making fist in order to maintain full ROM for ADLs. GOAL MET; DISCONTINUE 75 degrees PIP flexion of 4th finger 79 degrees DIP flexion of 4th finger 66 degrees MP flexion of 4th finger Target Visit 8 Progress Met
== END 2024-05-03 10:45 | disposition home or self-care (01) ==
LOC: CHSOT 10:55
PROVIDERS: Visit Provider Plastic Surgery
DX: M65.342 Trigger finger, left ring finger (principal)
CPT/HCPCS: 97035; 97110; 97140; 97165; 97530

== ENCOUNTER 2024-09-02 09:42 | Outpatient (CLI) | payer MEDICARE, SELFPAY ==
[2024-09-02 09:59] LABS: Basophils Absolute Auto 0.01 K/mm3 (0.00-0.10); Basophils Percent Auto 0.1 % (0.0-1.0); Eosinophils Absolute Auto 0.61 K/mm3 (0.02-0.50); Eosinophils Percent Auto 7.2 % (1.0-6.0); Hematocrit 36.6 % (35.0-42.0); Hemoglobin 11.8 g/dL (11.7-13.8); Immature Granulocyte Absolute 0.03 K/mm3 (0.00-0.00); Immature Granulocyte Percent A 0.4 % (0.0-0.0); Lymphocytes Percent Auto 17.7 % (18.0-42.0); Mean Corpuscular HGB Conc 32.2 g/dL (32-36); Mean Corpuscular Volume 86.9 fL (78.0-102.0); Mean Platelet Volume 9.6 fl (9.2-11.8); Monocytes Absolute Auto 0.68 K/mm3 (0.10-0.90); Neutrophils Absolute Auto 5.65 K/mm3 (1.70-7.20); Neutrophils Percent Auto 66.6 % (50.0-70.0); Platelet Count Result 339 K/mm3 (150-420); Red Blood Count 4.21 M/mm3 (4.20-5.40); Red Cell Distribution Width 13.1 % (11.6-14.4); White Blood Count 8.5 K/mm3 (4.8-10.8)
[2024-09-02 10:01] LABS: Add Urine Microscopic? YES; Appearance Urine Clear (Clear); Bilirubin Urine Negative (Negative); Blood Urine Negative (Negative); Color Urine Light Yellow (Yellow); Glucose Urine UA Negative (Negative); Ketones Urine Negative (Negative); Leukocyte Esterase Ur 1+ (Negative); Nitrate Urine Positive (Negative); Protein Urine Negative (Negative); Specific Grav Ur 1.015 (1.010-1.020); Urobilinogen Urine 0.2 mg/dL (0.2-1.0); pH Urine 5.5 (5.0-8.0)
[2024-09-02 10:13] LABS: RBC Urine 0-2 /hpf (0-2)
[2024-09-02 10:14] LABS: Squamous Epithelial Cell Urine Few /hpf (Few)
[2024-09-02 10:18] LABS: Bacteria Urine 3+ /hpf
[2024-09-02 10:28] LABS: Creatinine Urine 71.95 mg/dL (40-278); MALB Creatinine Ratio 31.6 mg/g (0-30); Microalbumin Urine Random 22.8 mg/L
[2024-09-02 10:29] LABS: Hemoglobin A1C 6.7 % (<5.7)
[2024-09-02 10:38] LABS: Albumin Level 3.6 g/dL (3.4-5.0); Anion Gap 6 mmol/L (4-12); Blood Urea Nitrogen 16 mg/dL (7-18); Calcium 10.1 mg/dL (8.5-10.1); Carbon Dioxide 30 mmol/L (21-32); Chloride 106 mmol/L (98-108); Estimated Glomerular Filt Rate 43; Glucose 122 mg/dL (70-99); Magnesium 1.8 mg/dL (1.8-2.4); Osmolality Calculated 296 mOsm/kg (285-295); Phosphorus 3.6 mg/dL (2.6-4.7); Potassium 4.7 mmol/L (3.5-5.1); Sodium 142 mmol/L (136-145)
--- OUTSIDE RECORDS SUMMARY | 2024-09-02 10:45 | XMS_ITS | Referral Summary ---
Author Organization [facility] [address] [place] [phone] Care Team Providers Care Clip Loading Machine Feeder Name Role Phone Shaka Harris MD Primary Care Provider [phone] Encounters Date Type Department Care Team Description 08/16/2024 Results Follow-Up [facility] Diabetes and Endocrinology [address] [place] [phone] Eliza Allen NP 08/16/2024 Orders Only [facility] Diabetes and Endocrinology [address] [place] [phone] Eliza Allen NP Acquired hypothyroidism (Primary Dx) 08/15/2024 10:22 AM CDT - 08/15/2024 11:59 PM CDT Hospital Encounter [address] [address] Acquired hypothyroidism; Type 2 diabetes mellitus with hyperglycemia, without long-term current use of insulin (HCC); Hyperlipidemia associated with type 2 diabetes mellitus (HCC); Hypertension associated with type 2 diabetes mellitus (HCC) Discharge Disposition: Discharge to home or self care 08/15/2024 11:15 AM CDT Lab [facility] Outpatient Lab at [address] [phone] Hyperlipidemia associated with type 2 diabetes mellitus (HCC) (Primary Dx); Hypertension associated with type 2 diabetes mellitus (HCC) 08/15/2024 10:30 AM CDT Office Visit [facility] Diabetes and Endocrinology [address] [place] [phone] Eliza Allen NP Type 2 diabetes mellitus with hyperglycemia, without long-term current use of insulin ([facility]) (Primary Dx); Hypertension associated with type 2 diabetes mellitus (HCC); Hyperlipidemia associated with type 2 diabetes mellitus ([facility]); Acquired hypothyroidism from Last 3 Months Allergies Active Allergy Reactions Criticality Noted Date Comments Adhesive Redness Low 02/29/2016 Paper tape Ampicillin Hives Medium 02/29/2016 Lisinopril Unknown 02/29/2016 Medications amLODIPine (NORVASC) 5 mg tablet Take 1 tablet (5 mg total) by mouth daily 023 Active aspirin 81 mg enteric coated tablet Take 1 tablet (81 mg total) by mouth daily 010 Active atorvastatin (LIPITOR) 40 mg tablet Take 1 tablet (40 mg total) by mouth daily 018 Active carvediloL (COREG) 6.25 mg tablet Take 1 tablet (6.25 mg total) by mouth 2 (two) times a day 023 Active cetirizine (ZyrTEC) 10 mg tablet Take 1 tablet (10 mg total) by mouth daily Active cholecalciferol (VITAMIN D-3) 2000 unit tablet Take 50 mcg by mouth daily Active EPINEPHrine 0.3 mg/0.3 mL auto-injection syringe Inject 0.3 mL (0.3 mg total) into the muscle as instructed as needed Active famotidine (PEPCID) 20 mg tablet Take 2 tablets (40 mg total) by mouth 2 (two) times a day 021 Active L. acidophilus/Bifid . animalis 32 billion cell capsule Take 1 capsule by mouth daily Active losartan (COZAAR) 100 mg tablet Take 1 tablet (100 mg total) by mouth daily 023 Active montelukast (SINGULAIR) 10 mg tablet Take 1 tablet (10 mg total) by mouth daily Active om 0-[id number]-[id number]-FA- B6-phytost 500 mg-500 mcg -1 mg-12.5 mg capsule Take by mouth Active glimepiride (AMARYL) 2 mg tablet Take 0.5 tablets (1 mg total) by mouth daily before breakfast 024 Active blood glucose diagnostic (True Metrix Glucose Test Strip) stripIndications: Type 2 diabetes mellitus with hyperglycemia, without long-term current use of insulin ([facility]) Check blood sugar daily 200 strip 3 024 Active metFORMIN XR (GLUCOPHAGE XR) 500 mg 24 hr tabletIndications :Type 2 diabetes mellitus with hyperglycemia, without long-term current use of insulin (HCC) Take 1 tablet (500 mg total) by mouth 2 (two) times a day 180 tablet 1 Active semaglutide (OZEMPIC) 1 mg/dose (4 mg/3 mL) pen injector injectionIndicati ons:type 2 diabetes mellitus Inject 1 mg under the skin once a week 3 mL 11 025 2024 Active levothyroxine (SYNTHROID) 100 mcg tabletIndications :Acquired hypothyroidism Take 1 tablet (100 mcg total) by mouth medical pathologist before breakfast 90 tablet 3 025 2025 Active semaglutide 0.25 mg or 0.5 mg (2 mg/3 mL) pen injector injectionIndicati ons:Type 2 diabetes mellitus with hyperglycemia, without long-term current use of insulin (HCC) Inject 0.5 mg under the skin once a week 6 mL 024 2024 Discontinued levothyroxine (SYNTHROID) 100 mcg tablet Take 1 tablet (100 mcg total) by mouth medical pathologist before breakfast 30 tablet 025 2024 Discontinued(R magdy) Active Problems Problem Noted Date Diagnosed Date Hyperlipidemia associated with type 2 diabetes codi pablo 04/05/2024 Assessment & Plan (08/15/2024 10:57 AM CDT): Chronic problem. At goal on current Atorvastatin 40mg. Last lipid panel: 08/21/23 LDL=67, JR=730 Will update labs. Verified that she uses [facility]. Aware to check results/results letter in [employer]. Will contact by phone if needed. Coronary artery disease invo lving ek[place] coronary artery of [place] heart without angina pectoris 04/05/2024 ARIANE (obstructive sleep apnea) 04/05/2024 Hypertension associated with type 2 diabetes fred silvestre 08/21/2023 Assessment & Plan (08/15/2024 10:57 AM CDT): Chronic problem. Controlled on current carvedilol 6.25mg bid, losartan 100mg daily, amlodipine 5mg daily Will update labs. Verified that she uses mychart. Aware to check results/results letter in [employer]. Will contact by phone if needed. Assessment & Plan (02/15/2024 10:12 AM CDT): Chronic problem. Controlled on current carvedilol 6.25mg bid, losartan 100mg daily, amlodipine 5mg daily Assessment & Plan (08/21/2023 11:04 AM CDT): Chronic problem. Controlled on current carvedilol 6.25mg bid, losartan 100mg daily, amlodipine 5mg daily Class 3 severe obesity due t o excess calories with serious comorbidity and body mass index (BMI) of 40.0 to 44.9 in adult 08/21/2023 Assessment & Plan (08/21/2023 11:49 AM CDT): Walks 5500 steps/day Discussed healthy diet and importance of regular physical activity (20- 30min/day, 150min/wk). Type 2 diabetes mellitus wit h hyperglycemia, without long-term current use of insulin 04/17/2023 Assessment & Plan (08/15/2024 11:22 AM CDT): Chronic problem. A1c stable but increased slightly from 6.% 02/15/24 to now 6.3%. no changes at this time. Will try [facility] pharmacy to see if Ozempic is any cheaper there. Has been denied PAP for ozempic. Current medications: Metformin XR 500 twice daily Glimepride on sliding scale: less than 110=none, 110-150=1mg, above 150-2mg Ozempic 0.5mg weekly--samples given UTD on DM eye exam (01/22/24 mild NPDR [facility]) Will update labs. Verified that she uses mychart. Aware to check results/results letter in [employer]. Will contact by phone if needed. Strive for regular exercise (30min most days) and diet (get at least 4-5 servings of fruit and veggies daily, avoid processed foods, increase lean protein intake and decrease carb portions as well as fruit juices, regular soda & desserts). Watch carbs and simple sugars. Check the blood sugar: daily. Check the feet daily for skin breakdown and infection. Assessment & Plan (02/15/2024 10:37 AM CDT): Chronic problem. A1c stable and improved from 6.2% to now 6.0%. no changes at this time. Current medications: Metformin XR 500 twice daily Glimepride on sliding scale: less than 110=none, 110-150=1mg, above 150-2mg Ozempic 0.5mg weekly--samples given DM eye exam 01/2023 [facility]. 2nd request letter sent to get copy of report. UTD on labs. Strive for regular exercise (30min most days) and diet (get at least 4-5 servings of fruit and veggies daily, avoid processed foods, increase lean protein intake and decrease carb portions as well as fruit juices, regular soda & desserts). Watch carbs and simple sugars. Check the blood sugar: daily. Check the feet daily for skin breakdown and infection. Assessment & Plan (08/21/2023 11:44 AM CDT): Chronic problem. A1c stable; lucian minimally from 04/17/23 6.0% to now 6.2%. no changes at this time. Current medications: Metformin XR 1000mg daily Ozempic 0.5mg weekly--samples given DM eye exam 01/2023 [facility]. Letter sent to get copy of report. Will update labs today. Does not mychart. Verified phone #/address to contact re: results. Strive for regular exercise (30min most days) and diet (get at least 4-5 servings of fruit and veggies daily, avoid processed foods, increase lean protein intake and decrease carb portions as well as fruit juices, regular soda & desserts). Watch carbs and simple sugars. Check the blood sugar: daily. Check the feet daily for skin breakdown and infection. Assessment & Plan (04/17/2023 2:13 PM MILL PLATFORM SUPERVISOR): Hba1c was Lab Results Component Value Date HGBA1C 6.0 04/17/2023 today, indicating adequate DM control Goal Hba1c under 7 and blood glucose level in the 120-160 range was explained Low carb diet and daily aerobic and /or resistant exercise were advised Prevention and treatment of hyypoglcyemia were discussed with the patient Blood glucose monitoring : 1 x day Adjustment to medications: Continue Metformin XR 1000 mg daily Continue Ozempic 0.5 mg weekly Hypothyroidism 04/17/2023 Assessment & Plan (08/15/2024 10:58 AM CDT): Chronic problem. Clinically euthyroid. Currently taking levothyroxine 100mcg daily. Last TFTs 08/2023 WNL. Aware to take 1st thing in morning, 30-60 minutes before food/drink/other medications. Will update labs. Verified that she uses mychart. Aware to check results/results letter in [employer]. Will contact by phone if needed. Assessment & Plan (02/15/2024 10:12 AM CDT): Chronic problem. Clinically & biochemically euthyroid. Currently taking levothyroxine 100mcg daily. Last TFTs 08/2023 WNL. Aware to take 1st thing in morning, 30-60 minutes before food/drink/other medications. Assessment & Plan (08/21/2023 11:47 AM CDT): Chronic problem. Clinically euthyroid. Currently taking levothyroxine 100mcg daily. No TFTs on record. Will update labs today. Does not mychart. Verified phone #/address to contact re: results. Assessment & Plan (04/17/2023 2:13 PM MILL PLATFORM SUPERVISOR): Chronic, well-controlled Continue levothyroxine 100 mcg daily Resolved Problems Problem Noted Date Diagnosed Date Resolved Date Morbid (severe) obesity due to excess calories 08/21/2023 08/21/2023 Body mass index 40.0-44.9, adult ([facility]) 08/21/2023 08/21/2023 Social History Tobacco Use Types Packs/Day Years Used Date Smoking Tobacco: Never Passive Smoke Exposure: Past Smokeless Tobacco: Never PHQ-2 Answer Date Recorded PHQ-2 Total Score (If total score is 3 or more points, staff should administer the PHQ-9) 2 04/17/2023 Comments Unknown Sex and Gender Information Value Date Recorded Sex Assigned at Not on file Legal Sex Female 5:51 PM MILL PLATFORM SUPERVISOR Gender Identity Not on file Sexual Orientation Not on file Last Filed Vital Signs Vital Sign Reading Time Taken Comments Blood Pressure 120/62 08/15/2024 10:22 AM CDT Pulse 70 08/15/2024 10:22 AM CDT Temperature - - Respiratory Rate 16 08/15/2024 10:22 AM CDT Oxygen Saturation 99% 04/05/2024 10:20 AM MILL PLATFORM SUPERVISOR Inhaled Oxygen Concentration - - Weight 108.9 kg (240 lb) 08/15/2024 10:22 AM CDT Height 160 cm (5' 2.99 ) 08/15/2024 10:22 AM CDT Body Mass Index 42.52 08/15/2024 10:22 AM CDT Plan of Treatment Not on file Procedures Procedure Name Priority Date/Time Associated Diagnosis Comments POCT GLUCOSE Routine 08/15/2024 10:24 AM CDT Type 2 diabetes mellitus with hyperglycemia, without long-term current use of insulin (HCC) POCT HEMOGLOBIN A1C Routine 08/15/2024 1 0:24 AM CDT Type 2 diabetes mellitus with hyperglycemia, without long-term current use of insulin (HCC) EGFR Routine 08/15/2024 10:22 AM CDT Type 2 diabetes mellitus with hyperglycemia, without long-term current use of insulin (HCC) Hypertension associated with type 2 diabetes mellitus (HCC) T4, FREE Routine 08/15/2024 10:22 AM CDT Acquired hypothyroidism ALBUMIN CREATININE RATIO, URINE Routine 08/15/2024 10:22 AM CDT Type 2 diabetes mellitus with hyperglycemia, without long-term current use of insulin (HCC) COMPREHENSIVE METABOLIC PANEL Routine 08/15/2024 10:22 AM CDT Type 2 diabetes mellitus with hyperglycemia, without long-term current use of insulin (HCC) Hypertension associated with type 2 diabetes mellitus (HCC) LIPID PANEL Routine 08/15/2024 10:22 AM CDT Type 2 diabetes mellitus with hyperglycemia, without long-term current use of insulin (HCC) Hyperlipidemia associated with type 2 diabetes mellitus (HCC) TSH Routine 08/15/2024 10:22 AM CDT Acquired hypothyroidism HM DIABETES EYE EXAM Routine 01/22/2024 8:01 AM CDT from Last 3 Months or Most Recently Relevant to Health Maintenance Results * (ABNORMAL) POCT hemoglobin A1c (08/15/2024 10:24 AM CDT) Hemoglobin A1C, POC 6.3 4.0 - 5.6 % Blood 08/15/2024 10:2 4 AM CDT us Eliza Allen MANAGER HEART FAILURE POINT OF CARE TEST ORDERA BLES Final Result * (ABNORMAL) POCT glucose (08/15/2024 10:24 AM CDT) Glucose Blood, POC 213 mg/dL Blood 08/15/2024 10:2 4 AM CDT us Eliza Allen MANAGER HEART FAILURE POINT OF CARE TEST ORDERA BLES Final Result * (ABNORMAL) eGFR (08/15/2024 10:22 AM CDT) eGFR 57(L) >=60 mL/min/1. 73 m2 Comment: Interpretive Data Reference Interval Normal >/= 90 mL/min/1.73m2 Mildly decreased* 60 - 89 mL/min/1.73m2 Mildly to moderately decreased 45 - 59 mL/min/1.73m2 Moderately to severely decreased 30 - 44 mL/min/1.73m2 Severely decreased 15 - 29 mL/min/1.73m2 Kidney Failure < 15 mL/min/1.73m2 *Relative to young adult level Estimated glomerular filtration rate is determined by the 2020 CKD-EPI equation recommended by the National Kidney Foundation (A Unifying Approach to GFR Estimation: Recommendations of the NKF-ASK Task Force on Reassessing the Inclusion of Race in Diagnosing Kidney Disease, JASN 2020). The CKD-EPI equation should not be used for patients with unstable renal function and has not been validated in children and those over 70. Current interpretive data was last reviewed 2021. Blood 08/15/2024 10:2 2 AM CDT 08/15/2024 10:56 PM CDT us Elizabarry Allen MANAGER HEART FAILURE LAB BLOOD ORDERABLES Nicole l Result Performing Organization Address [facility] Co de Phone Number MARION [id number] [address] [place] [address] * (ABNORMAL) Albumin Creatinine Ratio, Urine (08/15/2024 10:22 AM CDT) Albumin Ur 16.2 mg/L Comment: Interpretive Data No reference range established. Current interpretive data was last revised 2018. Creatinine Ur 54.8 mg/dL MARION Comment: Interpretive Data No reference range established. Current interpretive data was last revised 2018. Albumin Creatinine Ratio, Ur 30(H) 1 - 29 mg/g [facility] Urine 08/15/2024 10:2 2 AM CDT 08/15/2024 10:29 PM CDT us Eliza Uma Allen MANAGER HEART FAILURE LAB URINE ORDERABLES Nicole l Result Performing Organization Address [facility] de Phone Number EMMYLATIA [place] [address] [facility] [place] [address] * TSH (08/15/2024 10:22 AM CDT) Thyroid Stimulating Hormone 1.53 0.30 - 4.20 mcIUnit/mL Blood 08/15/2024 10:2 2 AM CDT 08/15/2024 10:29 PM CDT us Elizabarry Allen MANAGER HEART FAILURE LAB BLOOD ORDERABLES Nicole l Result Performing Organization Address [facility] Co de Phone Number MARION [address] [facility] [place] [place] [address] * T4, free (08/15/2024 10:22 AM CDT) Free T4 1.15 0.90 - 1.70 ng/dL Blood 08/15/2024 10:2 2 AM CDT 08/15/2024 10:29 PM CDT us Eliza Allen MANAGER HEART FAILURE LAB BLOOD ORDERABLES Nicole l Result [place] [address] [address] [facility] [place] [address] * (ABNORMAL) Lipid panel (08/15/2024 10:22 AM CDT) Cholesterol 119 30 - 199 mg/dL Comment: Interpretive Data Ages < or = 19 years Acceptable: <170 mg/dL Borderline high: 170-199 mg/dL High: >or= 200 mg/dL Ages > or = 20 years Desirable: <200 mg/dL Borderline high: 200-239 mg/dL High: >or= 240 mg/dL Literature References: 1. Expert Panel on Integrated Guidelines for Cardiovascular Health and Risk Reduction in Children and Adolescents. Pediatrics 2011;128:S213 2. NCEP Expert Panel. Circulation 2004;110:227 Current Interpretive Data was last revised on 2017. Triglycerides 121 <=149 mg/dL [place] Comment: Interpretive Data Ages < or = 9 years Acceptable: <75 mg/dL Borderline high: 75-99 mg/dL High: >or= 100 mg/dL Ages 10 to 20 years Acceptable: <90 mg/dL Borderline high: 90-129 mg/dL High: >or= 130 mg/dL Ages > or = 20 years Desirable: <150 mg/dL Borderline high: 150-199 mg/dL High: 200-499 mg/dL Very high: >or= 499 mg/dL Literature References: 1. Expert Panel on Integrated Guidelines for Cardiovascular Health and Risk Reduction in Children and Adolescents. Pediatrics 2011;128:S213 2. NCEP Expert Panel. Circulation 2004;110:227 Current Interpretive Data was last revised on 2017. HDL 36(L) >=40 mg/dL [facility] RICO Comment: Interpretive Data Ages < or = 19 years Acceptable: >45 mg/dL Borderline low: 40-45 mg/dL Low: <40 mg/dL Ages > or = 20 years Desirable: >or= 60 mg/dL Low: <40 mg/dL Literature References: 1. Expert Panel on Integrated Guidelines for Cardiovascular Health and Risk Reduction in Children and Adolescents. Pediatrics 2011;128:S213 2. NCEP Expert Panel. Circulation 2004;110:227 Current Interpretive Data was last revised on 2017. LDL, calculated 61 <=129 mg/dL MAR[facility] Comment: Interpretive Data Ages < or = 19 years Acceptable: <110 mg/dL Borderline high: 110-129 mg/dL High: >or= 130 mg/dL Ages > or = 20 years Optimal: <100 mg/dL Near optimal: 100-129 mg/dL Borderline high: 130-159 mg/dL High: >160 mg/dL Calculated using the Mike LDL-C estimating equation. This equation was implemented on 2023. Prior to this date LDL-C was estimated using the Friedewald equation. Literature References: 1. Expert Panel on Integrated Guidelines for Cardiovascular Health and Risk Reduction in Children and Adolescents. Pediatrics 2011;128:S213 2. NCEP Expert Panel. Circulation 2004;110:227 3. Mike Thompson et al. RIGOBERTO Cardiol. 2020 September 05;5(5):540-548. doi: 10.1001/jamacardio.2020.0013 Current Interpretive Data was last revised on 2023. Non-HDL Cholesterol 83 mg/dL [facility] Comment: Interpretive Data Ages < or = 19 years Acceptable: <120 mg/dL Borderline high: 120-144 mg/dL High: >145 mg/dL Ages > or = 20 years When triglycerides are >200 mg/dL, Non-HDL cholesterol is a secondary target of therapy with treatment goals that are 30 mg/dL greater than the LDL cholesterol target. Literature References: 1. Expert Panel on Integrated Guidelines for Cardiovascular Health and Risk Reduction in Children and Adolescents. Pediatrics 2011;128:S213 2. NCEP Expert Panel. Circulation 2004;110:227 Current Interpretive Data was last revised on 2017. Chol/HDL ratio 3 [facility] Blood 08/15/2024 10:2 2 AM CDT 08/15/2024 10:29 PM CDT us Eliza Allen NP LAB BLOOD ORDERABLES [place] [address] [address] Department [place] [address] * (ABNORMAL) Comprehensive metabolic panel (08/15/2024 10:22 AM CDT) Sodium 138 135 - 145 mmol/L Potassium, pl 4.0 3.3 - 4.9 mmol/L [facility] Chloride 105 97 - 110 mmol/L [facility] CO2 21(L) 22 - 32 mmol/L [facility] Anion gap 12 2 - 15 mmol/L [facility] BUN 17 6 - 25 mg/dL [facility] Creatinine 1.04 0.60 - 1.10 mg/dL [facility] Glucose 153 70 - 199 mg/dL [facility] Comment: Interpretive Data Fasting glucose >/= 126 mg/dl is diagnostic for diabetes. Fasting is defined as no caloric intake for at least 8 hours. Fasting glucose between 100 mg/dl to 125 mg/dl is diagnostic of prediabetes. In a patient with classic symptoms of hyperglycemia or hyperglycemic crisis, a random glucose >/= 200 mg/dl is diagnostic for diabetes. In the absence of unequivocal hyperglycemia, results should be confirmed by repeat testing. The classification and Diagnosis of Diabetes Diabetes Care 2021; 46: S19-S40. Current interpretive data was last revised 2022. Calcium 10.3 8.5 - 10.3 mg/dL [facility] Bilirubin, total 0.3 0.1 - 1.2 mg/dL [facility] Protein, pl 7.3 6.5 - 8.5 g/dL [facility] Albumin 3.9 3.5 - 5.0 g/dL [facility] Alk phos 116 40 - 130 Units/L [facility] ALT 20 7 - 45 Units/L [facility] AST 25 10 - 45 Units/L [facility] Blood 08/15/2024 10:2 2 AM CDT 08/15/2024 10:29 PM CDT us Eliza Allen MANAGER HEART FAILURE LAB BLOOD ORDERABLES Nicole l Result [place] [address] Department of Laboratories [place], [place] [id number] * (ABNORMAL) DIABETES EYE EXAM (01/22/2024 8:01 AM CDT) Historical Provider HEALTH MAINTENANCE Edited Result - Final from Last 3 Months or Most Recently Relevant to Health Maintenance Insurance MEDICARE [employer] Care Teams Clip Loading Machine Feeder Relationship Specialty Start Date End Date Shaka Harris MD PCP - General Internal Medicine 03/14/23
--- OUTSIDE RECORDS SUMMARY | 2024-09-02 10:45 | XMS_ITS | Encounter Summary ---
Author Organization [facility] Address [facility] [place] [address] Care Team Providers Care Driller Brake Lining Name Role Phone Shaka Harris MD Primary Care Provider [phone] Rosendo Lugo MD Unavailable [phone] Laxmi Cruz MD Unavailable Encounter Details Date Type Department Care Team (Late st Contact Info) Description 02/22/2016 [facility] AT [address] [address] Rosendo Lugo MD [address] [place] [address] Social History Tobacco Use Types Packs/Day Years Used Date Smoking Tobacco: Never Alcohol Use Standard Drinks/Week Comments No 0 (1 standard drink = 0.6 oz pur e alcohol) Comments Unknown Sex and Gender Information Value Date Recorded Sex Assigned at Not on file Legal Sex Female 11:58 PM CDT Gender Identity Not on file Sexual Orientation Not on file documented as of this encounter Plan of Treatment Not on file documented as of this encounter Visit Diagnoses Not on filedocumented in this encounter Additional Health Concerns Infection Onset Date Last Indicated Resolved Time COVID-19 Rule Out 08/08/2020 08/08/2020 2020 4:11 PM CDT documented as of this encounter Care Teams Driller Brake Lining Relationship Specialty Start Date End Date Shaka Harris MD [address] [place] [address] PCP - General INTERNAL MEDICINE 03/02/16 Rosendo Lugo MD [address] [place] [address] Carrie Wire Drawing Setter CARDIOVASCULAR DISEASE 03/02/16 08/27/23 Laxmi Cruz MD [address] [place] [address] Consulting Physician CARDIOVASCULAR DISEASE 08/28/23 documented as of this encounter
--- OUTSIDE RECORDS SUMMARY | 2024-09-02 10:45 | XMS_ITS | Clinical Summary ---
Author Organization [facility] [address] [place] [phone] Care Team Providers Care Public Policy Manager Name Role Phone Shaka Harris MD Primary Care Provider [phone] Allergies Active Allergy Reactions Criticality Noted Date [...] mg total) by mouth daily Active om 3-fhy-ngb-B12-FA- B6-phytost 500 mg-500 mcg -1 mg-12.5 mg capsule Take by mouth Active glimepiride (AMARYL) 2 mg tablet Take 0.5 tablets (1 mg total) by mouth daily before breakfast Active blood glucose diagnostic (True Metrix Glucose Test Strip) stripIndications: Type 2 diabetes mellitus with hyperglycemia, without long-term current use of insulin ([facility]) Check blood sugar daily 200 strip 3 Active metFORMIN XR (GLUCOPHAGE XR) 500 mg 24 hr tabletIndications :Type 2 diabetes mellitus with hyperglycemia, without long-term current use of insulin ([facility]) Take 1 tablet (500 mg total) by mouth 2 (two) times a day 180 tablet 1 Active semaglutide (OZEMPIC) 1 mg/dose (4 mg/3 mL) pen injector injectionIndicati ons:type 2 diabetes mellitus Inject 1 mg under the skin once a week 3 mL 11 025 2024 Active levothyroxine (SYNTHROID) 100 mcg tabletIndications :Acquired hypothyroidism Take 1 tablet (100 mcg total) by mouth geospatial technologist before breakfast 90 tablet 3 025 2025 Active semaglutide 0.25 mg or 0.5 mg (2 mg/3 mL) pen injector injectionIndicati ons:Type 2 diabetes mellitus with hyperglycemia, without long-term current use of insulin ([facility]) Inject 0.5 mg under the skin once a week 6 mL 024 2024 Discontinued levothyroxine (SYNTHROID) 100 mcg tablet Take 1 tablet (100 mcg total) by mouth geospatial technologist before breakfast 30 tablet 025 2024 Discontinued(Gavin curran) Active Problems Problem Noted Date Diagnosed Date Hyperlipidemia associated with type 2 diabetes codi pablo 04/05/2024 Assessment & Plan (08/15/2024 10:57 AM CDT): Chronic problem. At goal on current Atorvastatin 40mg. Last lipid panel: 08/21/23 LDL=67, NR=564 Will update labs. Verified that she uses mychart. Aware to check results/results letter in mychart. Will contact by phone if needed. Coronary artery disease invo lving [place] coronary artery of [place] heart without angina pectoris 04/05/2024 ARIANE (obstructive sleep apnea) 04/05/2024 Hypertension associated with type 2 diabetes fred litus 08/21/2023 Assessment & Plan (08/15/2024 10:57 AM CDT): Chronic problem. Controlled on current carvedilol 6.25mg bid, losartan 100mg daily, amlodipine 5mg daily Will update labs. Verified that she uses mychart. Aware to check results/results letter in mychart. Will contact by phone if needed. Assessment [...] no changes at this time. Will try [facility] to see if Ozempic is any cheaper there. Has been denied PAP for ozempic. Current medications: Metformin XR 500 twice daily Glimepride on sliding scale: less than 110=none, 110-150=1mg, above 150-2mg Ozempic 0.5mg weekly--samples given UTD on DM eye exam (01/22/24 mild NPDR [facility]) Will update labs. Verified that she uses mychart. Aware to check results/results letter in [facility]. Will contact by phone if needed. Strive [...] weekly--samples given DM eye exam 01/2023 [facility]. 2nd request letter sent to get copy [...] weekly--samples given DM eye exam 01/2023 [facility]. Letter sent to get copy of report. [...] infection. Assessment & Plan (04/17/2023 2:13 PM WELLNESS PROGRAM ADMINISTRATOR): Hba1c was Lab Results Component Value Date [...] Will update labs. Verified that she uses [facility]. Aware to check results/results letter in [facility]. Will contact by phone if needed. Assessment [...] results. Assessment & Plan (04/17/2023 2:13 PM WELLNESS PROGRAM ADMINISTRATOR): Chronic, well-controlled Continue levothyroxine 100 mcg daily Resolved Problems Problem Noted Date Diagnosed Date Resolved Date Morbid (severe) obesity due to excess calories 08/21/2023 08/21/2023 Body mass index 40.0-44.9, adult (CMS/HCC) 08/21/2023 08/21/2023 Encounters Date Type Department Care Team Description 08/16/2024 Results Follow-Up [facility] Diabetes [facility] Endocr[facility]ology [address] [place] [phone] Eliza Allen NP 08/16/2024 Orders Only [facility] [address] [place] [phone] Eliza Allen NP Acquired hypothyroidism (Primary Dx) 08/15/2024 11:15 AM CDT Lab [facility] Outpatient Lab at [address] [phone] Hyperlipidemia associated with type 2 diabetes mellitus (HCC) (Primary Dx); Hypertension associated with type 2 diabetes mellitus (HCC) 08/15/2024 10:30 AM CDT Office Visit [facility] Endocr[facility]ology [address] [place] [phone] Eliza Allen NP Type 2 diabetes mellitus with hyperglycemia, without long-term current use of insulin (HCC) (Primary Dx); Hypertension associated with type 2 diabetes mellitus (HCC); Hyperlipidemia associated with type 2 diabetes mellitus (HCC); Acquired hypothyroidism 08/15/2024 10:22 AM CDT - 08/15/2024 11:59 PM CDT Hospital Encounter [address] [address] Acquired hypothyroidism; Type 2 diabetes mellitus with hyperglycemia, without long-term current use of insulin (HCC); Hyperlipidemia associated with type 2 diabetes mellitus (HCC); Hypertension associated with type 2 diabetes mellitus (HCC) Discharge Disposition: Discharge to home or self care from Last 3 Months Surgical History Surgery Date Site/Laterality Comments SECTION TUBAL LIGATION WRIST SURGERY CYST REMOVAL CORONARY ANGIOPLASTY 05/08/2020 - 05/07/2021 Medical History Medical History Date Comments Type 2 diabetes mellitus (HCC) Hypothyroidism 04/17/2023 Hypertension Hyperlipidemia Family History Medical History Relation Name Comments Cancer Brother Dementia Father Heart disease Father Heart attack Mother Heart disease Mother Diabetes Sister 1 Heart disease Sister 1 Hypertension Sister 1 diabetes Sister 1 Thyroid disease Sister 2 Relation Name Status Comments Brother Alive Father Mother Sister 1 Alive Sister 2 Alive Social History Tobacco Use Types Packs/Day Years Used Date Smoking Tobacco: Never Passive Smoke Exposure: Past Smokeless Tobacco: Never PHQ-2 Answer Date Recorded PHQ-2 Total Score (If total score is 3 or more points, staff should administer the PHQ-9) 2 04/17/2023 Comments Unknown Sex and Gender Information Value Date Recorded Sex Assigned at Not on file Legal Sex Female 5:51 PM WELLNESS PROGRAM ADMINISTRATOR Gender Identity Not on file Sexual Orientation Not on file Obstetrics History Last Filed Vital Signs Vital Sign Reading Time Taken Comments Blood Pressure 120/62 08/15/2024 10:22 AM CDT Pulse 70 08/15/2024 10:22 AM CDT Temperature - - Respiratory Rate 16 08/15/2024 10:22 AM CDT Oxygen Saturation 99% 04/05/2024 10:20 AM WELLNESS PROGRAM ADMINISTRATOR Inhaled Oxygen Concentration - - Weight 108.9 kg (240 lb) 08/15/2024 10:22 AM CDT Height 160 cm (5' 2.99 ) 08/15/2024 10:22 AM CDT Body Mass Index 42.52 08/15/2024 10:22 AM CDT Plan of Treatment Health Maintenance Due Date Last Done Comments Breast Cancer Screening-Mammogram 1950 Colon Cancer Screening-Colonoscopy 1950 Hepatitis C Screening 1950 Osteoporosis Screening-Bone Density Scan 1950 Zoster Vaccine (1 of 2) 2002 Pneumococcal vaccine 65+ (2 of 2 - PCV) 03/19/2008 03/19/2007 Well Visit 65+ 2017 Depression Screening 04/17/2024 04/17/2023 Fall Risk Assessment 04/17/2024 04/17/2023 Influenza Vaccine (Season Ended) 2025 03/07/2019, 03/12/2018, 03/21/2017, Additional history exists Dilated Eye Exam 01/21/2025 01/22/2024, 01/23/2023 Hemoglobin A1C 02/14/2025 08/15/2024, 02/05, 08/21/2023, Additional history exists Albumin Creatinine Ratio, Urine 08/15/2025 , 08/21/2023 Foot Exam 08/15/2025 08/15/2024, 08/21/2023 Lipid Panel 08/15/2025 08/15/2024, 04/09/2023, 12/19/2018 eGFR 08/15/2025 08/15/2024, 08/21/2023 DTaP/Tdap/Td Vaccine (3 - Td or Tdap) 09/22/2031 09/21/2021, 09/29/2011, 11/02/2005, Additional history exists Hepatitis B Screening Completed 12/04/2018 Procedures Procedure Name Priority Date/Time Associated Diagnosis [...] % Blood 08/15/2024 10:2 4 AM CDT Eliza Allen FOOD CROPS FARM HAND POINT OF CARE TEST ORDERA BLES Final Result * (ABNORMAL) POCT glucose (08/15/2024 10:24 AM CDT) Glucose Blood, POC 213 mg/dL Blood 08/15/2024 10:2 4 AM CDT Eliza Allen FOOD CROPS FARM HAND POINT OF CARE TEST ORDERA BLES Final [...] 08/15/2024 10:56 PM CDT us Elizabarry Allen FO[employer] CROPS FARM HAND LAB BLOOD ORDERABLES Nicole l Result Performing Organization Address [facility] Co de Phone Number [facility] [address] [address] [facility] [place] [address] * (ABNORMAL) Albumin Creatinine Ratio, Urine (08/15/2024 10:22 AM CDT) Albumin Ur 16.2 mg/L Comment: Interpretive Data No reference range established. Current interpretive data was last revised 2018. Creatinine Ur 54.8 mg/dL [facility] Comment: Interpretive Data No reference range established. Current interpretive data was last revised 2018. Albumin Creatinine Ratio, Ur 30(H) 1 - 29 mg/g [facility] Urine 08/15/2024 10:2 2 AM CDT 08/15/2024 10:29 PM CDT us Elizabarry Allen FOOD CROPS [employer] HAND LAB URINE ORDERABLES Nicole l Result Performing Organization Address [facility] Co de Phone Number [facility] [address] [address] [facility] [place] [address] * TSH (08/15/2024 10:22 AM CDT) Pathologist [facility] Thyroid Stimulating Hormone 1.53 0.30 - 4.20 mcIUnit/mL Blood 08/15/2024 10:2 2 AM CDT 08/15/2024 10:29 PM CDT Elizabarry Allen FOOD CROPS F[employer] HAND LAB BLOOD ORDERABLES Nicole l Result Performing Organization Address [facility] Co de Phone Number [facility] [address] [address] [facility] [place] [address] * T4, free (08/15/2024 10:22 AM CDT) Free T4 1.15 0.90 - 1.70 ng/dL Blood 08/15/2024 10:2 2 AM CDT 08/15/2024 10:29 PM CDT us Eliza Allen FOOD CROPS FARM HAND LAB BLOOD ORDERABLES Nicole l Result [facility] [address] [facility] [place] [address] * (ABNORMAL) Lipid panel (08/15/2024 10:22 AM [...] 2017. LDL, calculated 61 <=129 mg/dL [facility] Comment: Interpretive Data Ages [...] on 2023. Non-HDL Cholesterol 83 mg/dL [facility] Comment: Interpretive Data Ages [...] revised on 2017. Chol/HDL ratio 3 [facility] Blood 08/15/2024 10:2 2 AM CDT 08/15/2024 10:29 PM CDT us Eliza R. Schleeper [employer] CROPS FARM HAND LAB BLOOD ORDERABLES Nicole l Result [facility] [address] Department of Laboratories [place] [phone] * (ABNORMAL) Comprehensive metabolic panel (08/15/2024 10:22 [...] classification and Diagnosis of Diabetes Diabetes Care 202; 46: S19-S40. Current interpretive data was last [...] 08/15/2024 10:29 PM CDT us Eliza Allen FOOD CROPS FARM HAND LAB BLOOD ORDER[place] [address] [address] Department [place] [address] * (ABNORMAL) DIABETES EYE EXAM (01/22/2024 8:01 AM CDT) us Historical Provider HEALTH MAINTENANCE Edited Result - Final from Last 3 Months or Most Recently Relevant to Health Maintenance Insurance [facility]ICARE [facility] [employer] Care Teams Public Policy Manager Relationship Specialty Start Date End Date Shaka Harris MD PCP - General Internal Medicine 03/14/23
--- OUTSIDE RECORDS SUMMARY | 2024-09-02 10:45 | XMS_ITS | Clinical Summary ---
Author Organization [facility] Address [address] [place] [address] Care Team Providers Care Laser Technician Name Role Phone Mabel Villafuerte NP Primary Care Provider [phone] Medications Semaglutide,0.2 5 or 0.5MG/DOS, (Ozempic, 0.25 or 0.5 MG/DOSE,) 2 MG/1.5ML solution pen-injector Inject 0.5 mg under the skin per week 12 mL 1 03/14/2024 Active carvedilol (COREG) 6.25 MG tablet TAKE ONE TABLET BY MOUTH EVERY MORNING AND TAKE ONE TABLET BY MOUTH EVERY EVENING TAKE WITH MEALS. 180 tablet 1 06/13/2024 Active losartan (COZAAR) 100 MG tablet TAKE ONE TABLET BY MOUTH EVERY EVENING 90 tablet 1 07/02/2024 Active Encounters Date Type Department Care Team Description 07/02/2024 Refill [facility], [address] [phone] Irvin Porter DO 06/13/2024 Refill [facility], [place] [address] [place] [phone] Irvin Porter DO from Last 3 Months Social History Tobacco Use Types Packs/Day Years Used Date Smoking Tobacco: Never Assessed Comments Unknown Sex and Gender Information Value Date Recorded Sex Assigned at Not on file Legal Sex Female 5:23 PM EDT Gender Identity Not on file Sexual Orientation Not on file Last Filed Vital Signs Vital Sign Reading Time Taken Comments Blood Pressure 132/60 03/14/2024 1:00 PM MOP MAN Pulse 72 03/14/2024 1:00 PM MOP MAN Temperature 36.1 C (97 F) 03/14/2024 1:00 PM MOP MAN Respiratory Rate 18 03/14/2024 1:00 PM MOP MAN Oxygen Saturation 96% 03/14/2024 1:00 PM MOP MAN Inhaled Oxygen Concentration - - Weight 105 kg (232 lb) 03/14/2024 1:00 PM MOP MAN Height 160 cm (5' 3 ) 01/21/2022 10:31 AM CDT Body Mass Index 41.1 01/21/2022 10:31 AM CDT Plan of Treatment Upcoming Encounters Date Type Department Care Team (Late st Contact Info) Description 09/12/2024 12:30 PM CDT Office Visit [facility], [address] [phone] Irvin Porter DO [address] [place] [phone] Health Maintenance Due Date Last Done Comments Breast Cancer Screening 1950 Colorectal Cancer Screening: Annual FOBT 2001 Colorectal Cancer Screening: Colonoscopy 2001 Colorectal Cancer Screening: Sigmoidoscopy 2001 Pneumococcal Vaccine: 50+ Years (2 of 2 - PCV) 03/19/2008 03/19/2007 Diabetes: Ophthalmology Exam 12/13/2021 Diabetes: Pedal Pulse Checked 12/13/2021 Diabetes: Sensory Foot Exam 12/13/2021 Diabetes: Visual Foot Exam 12/13/2021 Diabetes: Hemoglobin A1C 05/17/2024 024, 08/21/2023 Influenza Vaccine (Season Ended) 2025 03/21/2017, 02/20/2012 Hepatitis B Vaccine Aged Out No longe r eligible based on patient's age to complete this topic Insurance [place] [address] [place] [phone] [facility] [employer] [place] [address] Care Teams Laser Technician Relationship Specialty Start Date End Date Mabel Villafuerte NP [facility] [place] [address] [place] [address] PCP - General 12/13/21
--- OUTSIDE RECORDS SUMMARY | 2024-09-02 10:45 | XMS_ITS | Clinical Summary ---
Author Organization [facility] Address [address] [place] [address] Care Team Providers Care Vocational Rehabilitation Specialist Name Role Phone Shaka Harris MD Primary Care Provider Allergies Active Allergy Reactions Criticality Noted Date Comments Ampicillin Hives 02/29/2016 Lisinopril Unknown 02/29/2016 Tape Redness 02/29/2016 Medications aspirin EC 81 MG tablet Take 1 tablet (81 mg total) by mouth daily. 0 Active montelukast 10 MG tablet Take 1 tablet (10 mg total) by mouth daily. Active atorvastatin 40 MG tablet Take 1 tablet (40 mg total) by mouth daily. 90 tablet 3 8 Active EPINEPHrine (EPIPEN 2-ARIEL) 0.3 MG/0.3ML injection Inject 0.3 mLs (0.3 mg total) into the muscle as needed. Active famotidine 20 MG tablet Take 2 tablets (40 mg total) by mouth 2 (two) times daily. 1 Active levothyroxine 125 MCG tablet Take 1 tablet (125 mcg total) by mouth daily. Alternate with 100 mg daily 1 Active cetirizine 10 MG tablet Take 1 tablet (10 mg total) by mouth daily. Active metFORMIN ER (GLUCOPHAGE-XR) 500 MG 24 hr tablet Take 1 tablet (500 mg total) by mouth 2 (two) times daily. 2 Active losartan (COZAAR) 100 MG tablet Take 1 tablet (100 mg total) by mouth daily. 3 Active vitamin ( PLUS) 27-1 MG tablet Take 1 tablet by mouth daily. Active [place]-3 Fatty Acids (OMEGA 3 500 OR) Take 1 capsule by mouth daily. Active carvedilol (COREG) 6.25 MG tablet Take 1 tablet (6.25 mg total) by mouth 2 (two) times daily. Active FERROUS GLUCONATE OR Take 1 tablet 4 times a week Active probiotic (FLORAJEN3) Cap capsule Take 1 capsule by mouth daily. Active Vitamin D3 (VITAMIN D) 50 mcg tablet Take 1 tablet (50 mcg total) by mouth daily. Active Semaglutide (OZEMPIC, 0.25 OR 0.5 MG/DOSE, SC) Inject 0.5 mg into the skin once a week. Active amLODIPine (NORVASC) 5 MG tablet take one tablet by mouth daily 90 tablet 3 4 Active Active Problems Problem Noted Date Diagnosed Date Sleep apnea Hypothyroidism Hyperlipidemia HTN (hypertension) Diabetes (CMS/HCC HHS/HCC) CAD (coronary artery disease) Aortic regurgitation Resolved Problems Problem Noted Date Diagnosed Date Resolved Date Broken arm 03/03/2017 Immunizations Immunization Administration Dates Next Due Hepatitis A (Generic) 04/01/2008,10/02/2007 Influenza (Generic) 02/20/2012 Influenza Adult (Generic) 03/21/2017 Pneumococcal (Pneumovax 23) 03/19/2007 Td (Tenivac) preservative free 11/02/2005,1996 Tdap (Generic) 09/29/2011 Family History Medical History Relation Comments Cancer Brother 2 DFSP surgery Jan Arthritis Father CABG Father Diabetes Father Insulin dependen t Heart Disease Father Open heart surge ry at age 76 Hyperlipidemia Father Stroke Maternal Grandmother Diabetes Mother Insulin dependen t Early Mother Age 54 Heart Disease Mother DC Mother FATAL CORONARY HEART DISEASE Other Heart Attack Sister 1 Stent Cardiac Sister 1 COPD Sister 3 Diabetes Sister 3 Heart Disease Sister 3 DC, had cardiac cath with stent placed September 2018 Hyperlipidemia Sister 3 Hypertension Sister 3 Miscarriages / Stillbirths Sister 3 Early Son MVA 07-06-2003 Relation Status Comments Brother 1 Alive Brother 2 Child Alive Father (Age 87) Maternal Grandfather (Age 50's) Maternal Grandmother (Age 89) Mother (Age 54) Other Other Paternal Grandfather Paternal Grandmother (Age 86) Sister 1 Alive Sister 2 Alive Sister 3 Son Social History Tobacco Use Types Packs/Day Years Used Date Smoking Tobacco: Never Smokeless Tobacco: Never Tobacco Cessation:Counseling Given: Not Answered Comments:Second hand smoke the majority of my life Alcohol Use Standard Drinks/Week Comments Yes 0 (1 standard drink = 0.6 oz pur e alcohol) 4-5 times a year Comments Unknown Sex and Gender Information Value Date Recorded Sex Assigned at Not on file Legal Sex Female 11:58 PM CDT Gender Identity Not on file Sexual Orientation Not on file 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 Not on file Last Filed Vital Signs Vital Sign Reading Time Taken Comments Blood Pressure 130/72 04/11/2023 12:35 PM [employer]PERVIS[employer] Pulse 69 04/11/2023 12:35 PM SUPERVISOR [employer] Temperature 36.2 C (97.2 F) 08/11/2020 12:26 PM CDT Respiratory Rate 16 04/11/2023 12:3 5 PM SUPERVISOR [employer] Oxygen Saturation 99% 08/11/2020 12: 26 PM CDT Inhaled Oxygen Concentration - - Weight 102.2 kg (225 lb 3.2 oz) 023 12:35 PM SUPERVISOR [employer] Height 157.5 cm (5' 2 ) 04/11/2023 12:3 5 PM SUPERVISOR [employer] Body Mass Index 41.19 04/11/2023 12:35 PM SUPERVISOR [employer]OD CREW Plan of Treatment Health Maintenance Due Date Last Done Comments ASCVD Statin 1950 Colorectal Cancer Screening Colonoscopy (10 Years) 1952 Kidney Health Evaluation 1950 Hemoglobin A1C 1952 Diabetes: Retinopathy Eye Exam 1970 Hepatitis C 1970 Mammogram Screening 1992 Zoster Vaccines (1 of 2) 2002 Pneumococcal Vaccine: 50+ Years (2 of 2 - PCV) 03/19/2008 03/19/2007 RSV Immunization or 60+ Years (1 - Risk 60-74 years 1-dose series) 2012 Annual Medicare Wellness Visit 2017 Dexa Scan (General) 2017 ASCVD LDL 12/20/2019 12/19/2018, 04/27/2013 Lipid Panel 12/20/2019 12/19/2018, 04/27/2013 DTaP, Tdap and Td Vaccines (2 - Td or Tdap) 09/28/2021 09/29/2011, 11/02/2005, 11/02/2005, Additional history exists COVID-19 Vaccine (2023- season) 2024 Meningococcal B Vaccine Aged Out No l onger eligible based on patient's age to complete this topic Meningococcal Vaccine Aged Out No chinyere maryuri eligible based on patient's age to complete this topic RSV Immunizations Under 20 Months Aged Out No longer eligible based on patient's age to complete this topic Procedures Procedure Name Priority Date/Time Associated Diagnosis Comments LIPID PANEL Routine 12/19/2018 from Last 3 Months or Most Recently Relevant to Health Maintenance Results * LIPID PANEL (12/19/2018) CHOLESTEROL 131 HDL 38 TRIGLYCERIDES 116 CHOL/HDL RATIO 3.4 LDL (CALCULATED) 70 12/19/2018 us Doc [facility]OR[facility] Final Result from Last 3 Months or Most Recently Relevant to Health Maintenance Insurance MEDICARE GENERIC - COMMERCIAL MEDICARE [facility] [employer] Advance Directives * Full Code (Latest Code Status on File) Date Activated Date Inactivated Comments 08/11/2020 2:56 PM 08/11/2020 7:44 PM Care Teams Vocational Rehabilitation Specialist Relationship Specialty Start Date End Date Shaka Harris MD [address] [place] [phone] PCP - General INTERNAL MEDICINE 03/02/16
--- OUTSIDE RECORDS SUMMARY | 2024-09-02 10:45 | XMS_ITS | Encounter Summary ---
Author Organization [facility] Address [facility] [place] [address] Care Team Providers Care Stubber Name Role Phone Shaka Harris MD Primary Care Provider [phone] Rosendo Lugo MD Unavailable [phone] Laxmi Cruz MD Unavailable Encounter Details Date Type Department Care Team (Late st Contact Info) Description 08/19/2020 Abstract [facility] [address] [place] [address] Rosendo Lugo MD [address] [place] [address] Social History Tobacco Use Types Packs/Day Years Used Date Smoking Tobacco: Never Smokeless Tobacco: Never Alcohol Use Standard Drinks/Week Comments Yes 0 (1 standard drink = 0.6 oz pur e alcohol) rare, 5 per year Comments Unknown Sex and Gender Information Value Date Recorded Sex Assigned at Not on file Legal Sex Female 11:58 PM CDT Gender Identity Not on file Sexual Orientation Not on file 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 No / Unsure 08/11/2020 12:21 PM CDT documented as of this encounter Plan of Treatment Not on file documented as of this encounter Visit Diagnoses Not on filedocumented in this encounter Care Teams Stubber Relationship Specialty Start Date End Date Shaka Harris MD [address] [place] [phone] PCP - General INTERNAL MEDICINE 03/02/16 Rosendo Lugo MD [address] [place] [address] [facility] Surgical Pathologist CARDIOVASCULAR DISEASE 03/02/16 08/27/23 Laxmi Cruz MD [address] [place] [address] Consulting Physician CARDIOVASCULAR DISEASE 08/28/23 documented as of this encounter
[2024-09-02 15:10] LABS: Creatinine Urine 72.07 mg/dL (40-278); Total Protein Urine Random 26.1 mg/dL (0.0-11.9); Ur Ttl Prot Creatinine Ratio 0.36 mg/mg (0-0.20)
[2024-09-03 20:48] LABS: Vitamin D 25 Hydroxy 45 ng/mL (30-100)
[2024-09-04 14:59] LABS: Cystatin C 1.77 mg/L (0.52-1.10); eGFR 32 (> OR = 60)
== END 2024-09-02 09:43 | disposition home or self-care (01) ==
LOC: CHSLAB 09:45
PROVIDERS: PCP Internal Medicine; Visit Provider Internal Medicine Nephrology
DX: N18.31 Chronic kidney disease, stage 3a (principal); G47.33 Obstructive sleep apnea (adult) (pediatric); I51.9 Heart disease, unspecified; I25.84 Coronary atherosclerosis due to calcified coronary lesion; L50.8 Other urticaria; I12.9 Hypertensive chronic kidney disease with stage 1 through stage 4 chronic kidney disease, or unspecified chronic kidney disease; E11.22 Type 2 diabetes mellitus with diabetic chronic kidney disease; E78.00 Pure hypercholesterolemia, unspecified; E03.8 Other specified hypothyroidism
CPT/HCPCS: 36415; 80069; 81001; 82043; 82306; 82570; 82610; 83036; 83735; 84156; 85025

== ENCOUNTER 2024-10-16 13:56 | Outpatient (CLI) | payer MEDICARE, SELFPAY ==
[2024-10-16 14:25] LABS: Partial Thromboplastin Time 26.9 Sec (23.9-30.70); Prothrombin Time 10.6 Seconds (9.50-12.1)
--- OUTSIDE RECORDS SUMMARY | 2024-10-16 16:46 | XMS_ITS | Referral Summary ---
Author Organization [facility] [address] [place] [id number] Care Team Providers Care Bakery Assistant Name Role Phone Shaka Harris MD Primary Care Provider Encounters Date Type Department Care Team Description 08/16/2024 Results Follow-Up [facility] Diabetes and Endocrinology [address] [place] [phone] Eliza Allen NP TSH, Lipid panel, Comprehensive metabolic panel, Additional followed-up results: 3 08/16/2024 Orders Only [facility] Diabetes and Endocrinology [address] [place] [phone] Eliza Allen NP Acquired hypothyroidism (Primary Dx) 08/15/2024 10:22 AM CDT - 08/15/2024 11:59 PM CDT Hospital Encounter [address] [address] Acquired hypothyroidism; Type 2 diabetes mellitus with hyperglycemia, without long-term current use of insulin (HCC); Hyperlipidemia associated with type 2 diabetes mellitus (HCC); Hypertension associated with type 2 diabetes mellitus (HCC) Discharge Disposition: Discharge to home or self care 08/15/2024 11:15 AM CDT Lab [facility] Outpatient Lab at [address] [phone] Hyperlipidemia associated with type 2 diabetes mellitus (HCC) (Primary Dx); Hypertension associated with type 2 diabetes mellitus (HCC) 08/15/2024 10:30 AM CDT Office Visit [facility] Diabetes and Endocrinology [address] [place] [phone] Eliza Allen, [place] Type 2 diabetes mellitus with hyperglycemia, without long-term current use of insulin (HCC) (Primary Dx); Hypertension associated with type 2 diabetes mellitus (HCC); Hyperlipidemia associated with type 2 diabetes mellitus (HCC); Acquired hypothyroidism from Last 3 Months Allergies Active Allergy Reactions Criticality Noted Date Comments Adhesive Redness Low 02/29/2016 Paper tape Ampicillin Hives Medium 02/29/2016 Lisinopril Unknown 02/29/2016 Medications amLODIPine (NORVASC) 5 mg tablet Take 1 tablet (5 mg total) by mouth daily 3 Active aspirin 81 mg enteric coated tablet Take 1 tablet (81 mg total) by mouth daily 0 Active atorvastatin (LIPITOR) 40 mg tablet Take 1 tablet (40 mg total) by mouth daily 8 Active carvediloL (COREG) 6.25 mg tablet Take 1 tablet (6.25 mg total) by mouth 2 (two) times a day 3 Active cetirizine (ZyrTEC) 10 mg tablet Take [...] by mouth 2 (two) times a day 1 Active L. acidophilus/Bifid. animalis 32 billion cell capsule Take 1 capsule by mouth daily Active losartan (COZAAR) 100 mg tablet Take 1 tablet (100 mg total) by mouth daily 3 Active montelukast (SINGULAIR) 10 mg tablet Take 1 tablet (10 mg total) by mouth daily Active om [id number] 6-phytost 500 mg-500 mcg -1 mg-12.5 mg capsule Take by mouth Active glimepiride (AMARYL) 2 mg tablet Take 0.5 tablets (1 mg total) by mouth daily before breakfast 4 Active blood glucose diagnostic (True Metrix Glucose Test Strip) stripIndications:T ype 2 diabetes mellitus with hyperglycemia, without long-term current use of insulin ([facility]) Check blood sugar daily 200 strip 3 4 Active metFORMIN XR (GLUCOPHAGE XR) 500 mg 24 hr tabletIndications: Type 2 diabetes mellitus with hyperglycemia, without long-term current use of insulin ([facility]) Take 1 tablet (500 mg total) by mouth 2 (two) times a day 180 tablet 1 5 Active semaglutide (OZEMPIC) 1 mg/dose (4 mg/3 mL) pen injector injectionIndicatio ns:type 2 diabetes mellitus Inject 1 mg under the skin once a week 3 mL 11 5 Active levothyroxine (SYNTHROID) 100 mcg tabletIndications: Acquired hypothyroidism Take 1 tablet (100 mcg total) by mouth quality assurance advisor before breakfast 90 tablet 3 5 026 Active Active Problems Problem Noted Date Diagnosed Date Hyperlipidemia associated with type 2 diabetes codi pablo 04/05/2024 Assessment & Plan (08/15/2024 10:57 AM CDT): Chronic problem. At goal on current Atorvastatin 40mg. Last lipid panel: 08/21/23 LDL=67, HU=341 Will update labs. Verified that she uses [facility]. Aware to check results/results letter in [employer]. Will contact by phone if needed. Coronary artery disease invo lving [place] coronary artery of [place] heart without angina pectoris 04/05/2024 ARIANE (obstructive sleep apnea) 04/05/2024 Hypertension associated with type 2 diabetes fred silvestre 08/21/2023 Assessment & Plan (08/15/2024 10:57 AM CDT): Chronic problem. Controlled on current carvedilol 6.25mg bid, losartan 100mg daily, amlodipine 5mg daily Will update labs. Verified that she uses [facility]. Aware to check results/results letter in [employer]. Will contact by phone if needed. Assessment [...] no changes at this time. Will try [facility] pharmacy to see if Ozempic is any cheaper there. Has been denied PAP for ozempic. Current medications: Metformin XR 500 twice daily Glimepride on sliding scale: less than 110=none, 110-150=1mg, above 150-2mg Ozempic 0.5mg weekly--samples given UTD on DM eye exam (01/22/24 mild NPDR [facility]) Will update labs. Verified that she uses [facility]. Aware to check results/results letter in [facility]. Will contact by phone if needed. Strive [...] weekly--samples given DM eye exam 01/2023 [facility]. 2nd request letter sent to get copy [...] weekly--samples given DM eye exam 01/2023 [facility]. Letter sent to get copy of report. [...] infection. Assessment & Plan (04/17/2023 2:13 PM REINFORCED STEEL PLACING SUPERVISOR): Hba1c was Lab Results Component Value [...] [facility]. Aware to check results/results letter in [employer]. Will contact by phone if needed. Assessment [...] results. Assessment & Plan (04/17/2023 2:13 PM REINFORCED STEEL PLACING SUPERVISOR): Chronic, well-controlled Continue levothyroxine 100 mcg daily Resolved Problems Problem Noted Date Diagnosed Date Resolved Date Morbid (severe) obesity due to excess calories 08/21/2023 08/21/2023 Body mass index 40.0-44.9, adult ([facility]) 08/21/2023 08/21/2023 Social History Tobacco Use Types Packs/Day Years Used Date Smoking Tobacco: Never Passive Smoke Exposure: Past Smokeless Tobacco: Never PHQ-2 Answer Date Recorded PHQ-2 Total Score (If total score is 3 or more points, staff should administer the PHQ-9) 2 04/17/2023 Comments Unknown Sex and Gender Information Value Date Recorded Sex Assigned at Not on file Legal Sex Female 5:51 PM REINFOR[employer]ED STEEL [employer]ACING SUPERVISOR Gender Identity Not on file Sexual Orientation Not on file Last Filed Vital Signs Vital Sign Reading Time Taken Comments Blood Pressure 120/62 08/15/2024 10:22 AM CDT Pulse 70 08/15/2024 10:22 AM CDT Temperature - - Respiratory Rate 16 08/15/2024 10:22 AM CDT Oxygen Saturation 99% 04/05/2024 10:20 AM REINFORCED STEEL PLACING SUPERVISOR Inhaled Oxygen Concentration - - Weight 108.9 kg (240 lb) 08/15/2024 10:22 AM CDT Height 160 cm (5' 2.99) 08/15/2024 10:22 AM CDT Body Mass Index [...] 08/15/2024 10:2 4 AM CDT Eliza Allen CONTINUING EDUCATION SPECIALIST POINT OF CARE TEST ORDERA BLES Final Result * (ABNORMAL) POCT glucose (08/15/2024 10:24 AM CDT) Glucose Blood, POC 213 mg/dL Blood 08/15/2024 10:2 4 AM CDT us Eliza Allen CONTINUING EDUCATION SPECIALIST POINT OF CARE TEST ORDERA BLES Final [...] AM CDT 08/15/2024 10:56 PM CDT us Eliza Allen CONTINUING EDUCATION SPECIALIST LAB BLOOD ORDERABLES Nicole l Result Performing Organization Address [facility] de Phone Number MARION [address] [address] [facility] [place] [address] * (ABNORMAL) Albumin Creatinine Ratio, Urine (08/15/2024 10:22 AM CDT) Albumin Ur 16.2 mg/L Comment: Interpretive Data No reference range established. Current interpretive data was last revised 2018. Creatinine Ur 54.8 mg/dL [facility] Comment: Interpretive Data No reference range established. Current interpretive data was last revised 2018. Albumin Creatinine Ratio, Ur 30(H) 1 - 29 mg/g [facility] Urine 08/15/2024 10:2 2 AM CDT 08/15/2024 10:29 PM CDT us Elizabarry Allen CONTINUING EDUCATION SPECIALIST LAB URINE ORDERABLES Nicole l Result Performing Organization Address [facility] Co de Phone Number [place] [address] [address] [place] [address] * TSH (08/15/2024 10:22 AM CDT) Thyroid Stimulating Hormone 1.53 0.30 - 4.20 mcIUnit/mL Blood 08/15/2024 10:2 2 AM CDT 08/15/2024 10:29 PM CDT us Eliza Allen CONTINUING EDUCATION SPECIALIST LAB BLOOD ORDERABLES Nicole l Result Performing Organization Address [facility] Co de Phone Number [place] [address] [place] [address] * T4, free (08/15/2024 10:22 AM CDT) Free T4 1.15 0.90 - 1.70 ng/dL Blood 08/15/2024 10:2 2 AM CDT 08/15/2024 10:29 PM CDT us Eliza Allen NP LAB BLOOD ORDERABLES Nicole rodriguez Result [place] [address] [address] [place] [address] * (ABNORMAL) Lipid panel (08/15/2024 10:22 AM [...] 3. Mike Thompson et al. RIGOBERTO Cardiol. 2019September 05;5(5):540-548. doi: [email or web address] Current Interpretive Data was [...] NP LAB BLOOD ORDERABLES Nicole rodriguez Result [place] [address] [address] [place] [address] * (ABNORMAL) Comprehensive metabolic panel (08/15/2024 10:22 [...] Eliza Allen NP LAB BLOOD ORDERABLES Nicole l Result [place] [address] [address] [place] [address] * (ABNORMAL) DIABETES EYE EXAM (01/22/2024 8:01 AM CDT) us Historical Provider HEALTH MAINTENANCE Edited Result - Final from Last 3 Months or Most Recently Relevant to Health Maintenance Insurance MEDICARE [facility] Address: [address] [address] [place] [address] [facility] Right [employer] Care Teams Bakery Assistant Relationship Specialty Start Date End Date Shaka Harris MD PCP - General Internal Medicine 03/14/23
--- OUTSIDE RECORDS SUMMARY | 2024-10-16 16:46 | XMS_ITS | Clinical Summary ---
Author Organization [facility] Facility Address [address] [place] [address] Care Team Providers Care Director Corporate Compliance Name Role Phone Mabel Villafuerte NP Primary Care Provider [phone] Medications Semaglutide,0.2 5 or 0.5MG/DOS, (Ozempic, 0.25 [...] EVERY EVENING 90 tablet 1 07/02/2024 Active glimepiride (AMARYL) 1 MG tablet Take 1 tablet (1 mg total) by mouth 1 (one) time each day in the morning 90 tablet 1 09/12/2024 Active Encounters Date Type Department Care Team Description 09/12/2024 12:30 PM CDT Office Visit [facility], [address] [phone] Irvin Porter DO Stage 3a chronic kidney disease (HCC) (Primary Dx); Obstructive sleep apnea syndrome; Diastolic dysfunction; Coronary artery disease due to calcified coronary lesion; Chronic urticaria; Hypertensive chronic kidney disease; Type 2 diabetes mellitus with diabetic chronic kidney disease (HCC); Pure hypercholesterolemia, not otherwise specified; Other specified hypothyroidism 09/12/2024 Refill [facility], [address] [phone] Chika Serrano CMA 09/05/2024 Documentation Only [facility], [address] [phone] Irvin Porter, 09/04/2024 Documentation Only [facility], [address] [phone] Irvin Porter, DO 09/02/2024 Documentation Only [facility], [address] [phone] Irvin Porter, 09/02/2024 Documentation Only [facility], [address] [phone] Irvin Porter, DO from Last 3 Months Social History Tobacco Use Types Packs/Day Years Used Date Smoking Tobacco: Never Assessed Comments Unknown Sex and Gender Information Value Date Recorded Sex Assigned at Not on file Legal Sex Female 5:23 PM EDT Gender Identity Not on file Sexual Orientation Not on file Last Filed Vital Signs Vital Sign Reading Time Taken Comments Blood Pressure 140/70 09/12/2024 12:30 PM CDT Pulse 68 09/12/2024 12:30 PM CDT Temperature 36.1 C (97 F) 09/12/2024 12:30 PM CDT Respiratory Rate 18 09/12/2024 12:30 PM CDT Oxygen Saturation 99% 09/12/2024 12:30 PM CDT Inhaled Oxygen Concentration - - Weight 109 kg (240 lb) 09/12/2024 12:30 PM CDT Height 160 cm (5' 3) 01/21/2022 10:31 AM CDT Body Mass Index 42.51 01/21/2022 10:31 AM CDT Plan of Treatment Upcoming Encounters Date Type Department Care Team (Late st Contact Info) Description 03/20/2025 12:45 PM ALTERATION MANAGER Office Visit [address] [phone] Irvin Porter DO [address] [facility] [address] [place] [address] Health Maintenance Due Date Last Done Comments Breast Cancer Screening 1950 Colorectal Cancer Screening: Annual FOBT 2001 Colorectal Cancer Screening: Colonoscopy 2001 Colorectal Cancer Screening: Sigmoidoscopy 2001 Pneumococcal Vaccine: 50+ Years (2 of 2 - PCV) 03/19/2008 03/19/2007 Diabetes: Ophthalmology Exam 12/13/2021 Diabetes: Pedal Pulse Checked 12/13/2021 Diabetes: Sensory Foot Exam 12/13/2021 Diabetes: Visual Foot Exam 12/13/2021 Diabetes: Hemoglobin A1C 11/14/2024 025, 02/15/2024, 08/21/2023 Influenza Vaccine (Season Ended) 2025 03/21/2017, 02/20/2012 Hepatitis B Vaccine Aged Out No longe r eligible based on patient's age to complete this topic Insurance Medicare [facility] [employer] Care Teams Director Corporate Compliance Relationship Specialty Start Date End Date Mabel Villafuerte NP [facility] [employer] [address] [place] [address] [place] [address] PCP - General 12/13/21
--- OUTSIDE RECORDS SUMMARY | 2024-10-16 16:46 | XMS_ITS | Clinical Summary ---
Author Organization [facility] Phys[facility] [address] [place] [phone] Care Team Providers Care Doctor Of Pharmacy Name Role Phone Shaka Harris MD Primary Care Provider [phone] Allergies Active Allergy Reactions Criticality Noted Date [...] mg total) by mouth daily Active om 0-[id number] 6-phytost 500 mg-500 mcg -1 mg-12.5 mg capsule Take by mouth Active glimepiride (AMARYL) 2 mg tablet Take 0.5 tablets (1 mg total) by mouth daily before breakfast 4 Active blood glucose diagnostic (True Metrix Glucose Test Strip) stripIndications:T ype 2 diabetes mellitus with hyperglycemia, without long-term current use of insulin (HCC) Check blood sugar daily 200 strip 3 [...] 1 tablet (100 mcg total) by mouth industrial garage servicer before breakfast 90 tablet 3 5 026 Active Active Problems Problem Noted Date Diagnosed Date Hyperlipidemia associated with type 2 diabetes codi pablo 04/05/2024 Assessment & Plan (08/15/2024 10:57 AM CDT): Chronic problem. At goal on current Atorvastatin 40mg. Last lipid panel: 08/21/23 LDL=67, RV=395 Will update labs. Verified that she uses [employer]. Aware to check results/results letter in [employer]. Will contact by phone if needed. Coronary artery disease invo lving [place] coronary artery of [place] heart without angina pectoris 04/05/2024 ARIANE (obstructive sleep apnea) 04/05/2024 Hypertension associated with type 2 diabetes fred comfortus 08/21/2023 Assessment & Plan (08/15/2024 10:57 AM CDT): Chronic problem. Controlled on current carvedilol 6.25mg bid, losartan 100mg daily, amlodipine 5mg daily Will update labs. Verified that she uses [facility]. Aware to check results/results letter in [employer]. Will contact by phone if needed. Assessment [...] no changes at this time. Will try [facility] pharmacy to see if Ozempic is any cheaper there. Has been denied PAP for ozempic. Current medications: Metformin XR 500 twice daily Glimepride on sliding scale: less than 110=none, 110-150=1mg, above 150-2mg Ozempic 0.5mg weekly--samples given UTD on DM eye exam (01/22/24 mild NPDR [facility]) Will update labs. Verified that she uses [facility]. Aware to check results/results letter in [employer] [facility] [employer]. Will contact by phone if needed. Strive [...] weekly--samples given DM eye exam 01/2023 [facility]. 2nd request letter sent to get copy [...] weekly--samples given DM eye exam 01/2023 [facility]. Letter sent to get copy of report. [...] infection. Assessment & Plan (04/17/2023 2:13 PM HAND CLOTH CUTTER): Hba1c was Lab Results Component Value Date [...] [facility]. Aware to check results/results letter in [employer]. Will contact by phone if needed. Assessment [...] results. Assessment & Plan (04/17/2023 2:13 PM HAND CLOTH CUTTER): Chronic, well-controlled Continue levothyroxine 100 mcg daily Resolved Problems Problem Noted Date Diagnosed Date Resolved Date Morbid (severe) obesity due to excess calories 08/21/2023 08/21/2023 Body mass index 40.0-44.9, adult (CMS/HCC) 08/21/2023 08/21/2023 Encounters Date Type Department Care Team Description 08/16/2024 Results Follow-Up [facility] Diabetes and Endocrinology [address] [place] [phone] Eliza Allen NP TSH, Lipid panel, Comprehensive metabolic panel, Additional followed-up results: 3 08/16/2024 Orders Only [facility] Diabetes and Endocrinology [address] [place] [phone] Eliza Allen NP Acquired hypothyroidism (Primary Dx) 08/15/2024 11:15 AM CDT Lab [facility] Medical [facility] Outpatient Lab at [address] [phone] Hyperlipidemia associated with type 2 diabetes mellitus (HCC) (Primary Dx); Hypertension associated with type 2 diabetes mellitus (HCC) 08/15/2024 10:30 AM CDT Office Visit [facility] Diabetes and Endocrinology [address] [place] [phone] Eliza Allen NP Type 2 diabetes mellitus with hyperglycemia, without long-term current use of insulin (HCC) (Primary Dx); Hypertension associated with type 2 diabetes mellitus (HCC); Hyperlipidemia associated with type 2 diabetes mellitus (HCC); Acquired hypothyroidism 08/15/2024 10:22 AM CDT - 08/15/2024 11:59 PM CDT Hospital Encounter [address] [address] Acquired hypothyroidism; Type 2 diabetes mellitus with [...] on file Legal Sex Female 5:51 PM HAND CLOTH CUTTER Gender Identity Not on file Sexual Orientation Not on file Obstetrics History Last Filed Vital Signs Vital Sign Reading Time Taken Comments Blood Pressure 120/62 08/15/2024 10:22 AM CDT Pulse 70 08/15/2024 10:22 AM CDT Temperature - - Respiratory Rate 16 08/15/2024 10:22 AM CDT Oxygen Saturation 99% 04/05/2024 10:20 AM HAND CLOTH CUTTER Inhaled Oxygen Concentration - - Weight 108.9 [...] 08/15/2025 08/15/2024, 08/21/2023 Lipid Panel 08/15/2025 08/15/2024, 08/06, 12/19/2018 eGFR 08/15/2025 08/15/2024, 08/21/2023 DTaP/Tdap/Td Vaccine [...] Blood 08/15/2024 10:2 4 AM CDT us Elizabarry Allen ACID ETCH OPERATOR POINT OF CARE TEST ORDERA BLES Final Result * (ABNORMAL) POCT glucose (08/15/2024 10:24 AM CDT) Glucose Blood, POC 213 mg/dL Blood 08/15/2024 10:2 4 AM CDT us Eliza Allen ACID ETCH OPERATOR POINT OF CARE TEST ORDERA BLES Final Result * (ABNORMAL) eGFR (08/15/2024 10:22 AM CDT) Pathologist [facility] eGFR 57(L) >=60 mL/min/1. 73 m2 Comment: [...] 08/15/2024 10:56 PM CDT us Eliza Allen ACID ETCH OPERATOR LAB BLOOD ORDERABLES Nicole l Result [facility] [address] [facility] [place] [address] * (ABNORMAL) Albumin Creatinine Ratio, Urine (08/15/2024 10:22 AM CDT) Albumin Ur 16.2 mg/L Comment: Interpretive Data No reference range established. Current interpretive data was last revised 2018. Creatinine Ur 54.8 mg/dL [facility] Comment: Interpretive Data No reference range established. Current interpretive data was last revised 2018. Albumin Creatinine Ratio, Ur 30(H) 1 - 29 mg/g [facility] Urine 08/15/2024 10:2 2 AM CDT 08/15/2024 10:29 PM CDT us Eliza Allen ACID ETCH OPERATOR LAB URINE ORDERABLES Nicole l Result Performing Organization Address [facility] Phone Number [place] [address] [address] [address] * TSH (08/15/2024 10:22 AM CDT) Thyroid Stimulating Hormone 1.53 0.30 - 4.20 mcIUnit/mL Blood 08/15/2024 10:2 2 AM CDT 08/15/2024 10:29 PM CDT us Eliza Allen ACID ETCH OPERATOR LAB BLOOD ORDERABLES Nicole l Result Performing Organization Address [facility] de Phone Number [facility] [address] [address] [facility] [address] * T4, free (08/15/2024 10:22 AM CDT) Free T4 1.15 0.90 - 1.70 ng/dL Blood 08/15/2024 10:2 2 AM CDT 08/15/2024 10:29 PM CDT us Eliza Allen ACID ETCH OPERATOR LAB BLOOD ORDERABLES Nicole rodriguez Result [place] [address] Department of Laboratories [place] [phone] * (ABNORMAL) Lipid panel (08/15/2024 10:22 AM [...] LAB BLOOD ORDERABLES Nicole rodriguez Result [place] [address] [address] [place] [address] * (ABNORMAL) Comprehensive metabolic panel (08/15/2024 10:22 [...] BLOOD ORDERABLES Nicole rodriguez Result [place] [address] [address] [place] [address] * (ABNORMAL) DIABETES EYE EXAM (01/22/2024 8:01 AM CDT) us Historical Provider HEALTH MAINTENANCE Edited Result - Final from Last 3 Months or Most Recently Relevant to Health Maintenance Insurance MEDICARE [employer] Care Teams Doctor Of Pharmacy Relationship Specialty Start Date End Date Shaka Harris MD PCP - General Internal Medicine 03/14/23
== END 2024-10-16 13:57 | disposition home or self-care (01) ==
LOC: CHSLAB 13:57
PROVIDERS: PCP Internal Medicine; Visit Provider Anesthesiology
DX: Z01.818 Encounter for other preprocedural examination (principal); N18.30 Chronic kidney disease, stage 3 unspecified
CPT/HCPCS: 36415; 85610; 85730

== ENCOUNTER 2024-10-23 01:40 | Day surgery (SDC) | payer MEDICARE, SELFPAY ==
[2024-10-14 12:28] VITALS: BMI 43.2
--- NOTE | 2024-10-14 12:52 | PC.NURSE ---
Report to the Outpatient Waiting Room, entrance under the green pavilion located off [facility], at time __11:00AM____ on date ___10/23/24___. Planned Procedure Time: ___1:00PM .? Time changes happen often and if your time is changed the preop area will call you the afternoon before. - You and your visitor will be asked to self-screen and do not enter if you have any COVID symptoms. Please call surgeon if you need to reschedule. - A mask is optional within the hospital at this time. Patients may have clear liquids (water, carbonated beverages, clear teas, apple juice) until 8 hours prior to surgery (5:00AM) with a maximum of 20 ounces. *8 HOURS WITH NOTHING TO EAT OR DRINK PER DR WARD. - No food from midnight until time of surgery and no smoking, or chewing tobacco (or any form of nicotine). No chewing gum, candy or mints. Take only the following medications with a SIP of water on the morning of surgery: ___AMLODIPINE, CARVEDILOL, LEVOTHYROXINE. MAY TAKE MECLIZINE NEEDED. DO NOT STOP ANY OF YOUR OTHER PRESCRIPTION MEDICATIONS PRIOR TO SURGERY EXCEPT THE FOLLOWING Hold all vitamins and supplements for 3 days per anesthesiologist.-LAST DOSE 10/19/24. Medications to discontinue per physician ___HOLD ASPIRIN PER DR WARD Date to take last dose Please no make-up, nail rwandan, hairspray, perfume, deodorant, or body powder the day of surgery.? No jewelry (including any body piercings) or valuables the day of surgery, leave them at home.? Please take a shower or bath the night before, or the morning of, surgery with an antibacterial soap.? Wear comfortable, loose fitting clothing.? - Jewelry must be removed prior to entering the operating room.? Rings and piercings that are not removed may be cut off. - The hospital will not accept responsibility for valuables.? - Please leave all valuables, including medications, at home the day of surgery. If you are going home after surgery, a licensed star route mail driver must drive you home.? - NO public transportation without another adult if you receive anesthesia. - We recommend that an adult stay with you for 24 hours following discharge. - We also recommend that you do not drive, make important decision, drink alcoholic beverages, or take any drugs that were not prescribed by your health care provider for at least 24 hours after your discharge time. Follow any additional instructions given to you from your surgeon. Telephone instructions given to ____PATIENT and asked if any additional questions and then verbalized understanding. Patient advised to call surgeon office or pre surgery nurse liaison [phone] if any additional questions.
--- OUTSIDE RECORDS SUMMARY | 2024-10-23 01:50 | XMS_ITS | Clinical Summary ---
Author Organization [facility] Physician Office Building [address] [place] [phone] Care Team Providers Care Ground Nuclear Weapons Assembly Officer Name Role Phone Shaka Harris MD Primary Care Provider [phone] Allergies Active Allergy Reactions Criticality Noted Date Comments Adhesive Redness Low 02/29/2016 Paper tape Ampicillin Hives Medium 02/29/2016 Lisinopril Unknown 02/29/2016 Medications amLODIPine (NORVASC) 5 mg tablet Take 1 tablet (5 mg total) by mouth daily 09/27/19 23 Active aspirin 81 mg enteric coated tablet Take 1 tablet (81 mg total) by mouth daily 10/19/19 10 Active atorvastatin (LIPITOR) 40 mg tablet Take 1 tablet (40 mg total) by mouth daily 03/13/20 18 Active carvediloL (COREG) 6.25 mg tablet Take 1 tablet (6.25 mg total) by mouth 2 (two) times a day 03/09/20 23 Active cetirizine (ZyrTEC) 10 mg tablet Take 1 tablet (10 mg total) by mouth daily Active EPINEPHrine 0.3 mg/0.3 mL auto-injection syringe Inject 0.3 mL (0.3 mg total) into the muscle as instructed as needed Active famotidine (PEPCID) 20 mg tablet Take 2 tablets (40 mg total) by mouth 2 (two) times a day 07/07/19 21 Active L. acidophilus/Bifid. animalis 32 billion cell capsule Take 1 capsule by mouth daily Active losartan (COZAAR) 100 mg tablet Take 1 tablet (100 mg total) by mouth daily 03/09/20 23 Active montelukast (SINGULAIR) 10 mg tablet Take 1 tablet (10 mg total) by mouth daily Active glimepiride (AMARYL) 2 mg tablet Take 0.5 tablets (1 mg total) by mouth daily before breakfast 06/29/19 24 Active blood glucose diagnostic (True Metrix Glucose Test Strip) stripIndications:T ype 2 diabetes mellitus with hyperglycemia, without long-term current use of insulin (HCC) Check blood sugar daily 200 strip 3 08/21/19 24 Active metFORMIN XR (GLUCOPHAGE XR) 500 mg 24 hr tabletIndications: Type 2 diabetes mellitus with hyperglycemia, without long-term current use of insulin (HCC) Take 1 tablet (500 mg total) by mouth 2 (two) times a day 180 tablet 1 07/03/19 25 Active levothyroxine (SYNTHROID) 100 mcg tabletIndications: Acquired hypothyroidism Take 1 tablet (100 mcg total) by mouth registered land surveyor before breakfast 90 tablet 3 08/17/19 25 026 Active multivitamin tabletIndications: Vitamin Deficiency Prevention Take 1 tablet by mouth Active cholecalciferol (VITAMIN D-3) 2000 unit tablet Take 50 mcg by mouth daily 025 Discontin ued(Thera py completed ) om [id number] 6-phytost 500 mg-500 mcg -1 mg-12.5 mg capsule Take by mouth 20/06 025 Discontin ued(Thera py completed ) semaglutide (OZEMPIC) 1 mg/dose (4 mg/3 mL) pen injector injectionIndicatio ns:type 2 diabetes mellitus Inject 1 mg under the skin once a week 3 mL 08/16/19 25 025 Discontin ued(Thera py completed ) Active Problems Problem Noted Date Diagnosed Date Nonrheumatic aortic (valve) stenosis 10/18/2024 Hyperlipidemia associated with type 2 diabetes codi ambrosedequan 04/05/2024 Assessment & Plan (08/15/2024 10:57 AM CDT): Chronic problem. At goal on current Atorvastatin 40mg. Last lipid panel: 08/21/23 LDL=67, WA=369 Will update labs. Verified that she uses [email or web address]. Aware to check results/results letter in [email or web address]. Will contact by phone if needed. Coronary artery disease invo lving [place] coronary artery of [place] heart without angina pectoris 04/05/2024 ARIANE (obstructive sleep apnea) 04/05/2024 Hypertension associated with type 2 diabetes fred litus 08/21/2023 Assessment & Plan (08/15/2024 10:57 AM CDT): Chronic problem. Controlled on current carvedilol 6.25mg bid, losartan 100mg daily, amlodipine 5mg daily Will update labs. Verified that she uses [facility]. Aware to check results/results letter in [email or web address]. Will contact by phone if needed. Assessment [...] no changes at this time. Will try [facility] pharmacy to see if Ozempic is any cheaper there. Has been denied PAP for ozempic. Current medications: Metformin XR 500 twice daily Glimepride on sliding scale: less than 110=none, 110-150=1mg, above 150-2mg Ozempic 0.5mg weekly--samples given UTD on DM eye exam (01/22/24 mild NPDR [facility]) Will update labs. Verified that she uses [employer]. Aware to check results/results letter in [email or web address]. Will contact by phone if needed. Strive [...] weekly--samples given DM eye exam 01/2023 [facility]. 2nd request letter sent to get copy [...] weekly--samples given DM eye exam 01/2023 [facility]. Letter sent to get copy of report. [...] infection. Assessment & Plan (04/17/2023 2:13 PM COMMERCIAL ROOFER): Hba1c was Lab Results Component Value Date [...] Will update labs. Verified that she uses [email or web address]. Aware to check results/results letter in [email or web address]. Will contact by phone if needed. Assessment [...] record. Will update labs today. Does not [employer]. Verified phone #/address to contact re: results. Assessment & Plan (04/17/2023 2:13 PM COMMERCIAL ROOFER): Chronic, well-controlled Continue levothyroxine 100 mcg daily Resolved Problems Problem Noted Date Diagnosed Date Resolved Date Morbid (severe) obesity due to excess calories 08/21/2023 08/21/2023 Body mass index 40.0-44.9, adult (CMS/HCC) 08/21/2023 08/21/2023 Encounters Date Type Department Care Team Description 10/18/2024 10:00 AM CDT Office Visit [facility] Cardiology at [address] [place] [phone] Efrain Pal MD Hypertension associated with type 2 diabetes mellitus (HCC) (Primary Dx); Hyperlipidemia associated with type 2 diabetes mellitus (HCC); Coronary artery disease involving [place] coronary artery of venetie heart without angina pectoris; ARIANE (obstructive sleep apnea); Hypothyroidism, unspecified type; Nonrheumatic aortic (valve) stenosis 08/16/2024 Results Follow-Up [facility] Diabetes and Endocrinology [address] [place] [phone] Eliza Allen NP TSH, Lipid panel, Comprehensive metabolic panel, Additional followed-up results: 3 08/16/2024 Orders Only [facility] Diabetes and Endocrinology [address] [place] [phone] Eliza Allen NP Acquired hypothyroidism (Primary Dx) 08/15/2024 11:15 AM CDT Lab [facility] Outpatient Lab at [address] [phone] Hyperlipidemia associated with type 2 diabetes mellitus (HCC) (Primary Dx); Hypertension associated with type 2 diabetes mellitus (HCC) 08/15/2024 10:30 AM CDT Office Visit [facility] Diabetes and Endocrinology [address] [place] [phone] Eliza Allen NP Type 2 diabetes mellitus with hyperglycemia, without long-term current use of insulin (HCC) (Primary Dx); Hypertension associated with type 2 diabetes mellitus (HCC); Hyperlipidemia associated with type 2 diabetes mellitus (HCC); Acquired hypothyroidism 08/15/2024 10:22 AM CDT - 08/15/2024 11:59 PM CDT Hospital Encounter [address] [address] Acquired hypothyroidism; Type 2 diabetes mellitus with [...] diabetes mellitus (HCC) Hypothyroidism 04/17/2023 Hypertension Hyperlipidemia Sleep apnea Seizures (HCC) December 1977 with toxemia. Chronic kidney disease Stage 3 2021? Cataract [place] [id number] Arthritis Years. Mild Family History Medical History Relation Name Comments Cancer Brother Javed Arboleda II Hypertension Daughter Caren Bruner Dementia Father Javed Arboleda Heart disease Father Javed Arboleda Stroke Father Javed Arboleda Heart attack Mother Lana Arboleda Heart disease Mother Lana Arboleda Miscarriages / Stillbirths Mother Lana Arboleda COPD Sister 1 Helen McDuffy Diabetes Sister 1 Helen McDuffy Heart attack Sister 1 Helen McDuffy Heart disease Sister 1 Helen McDuffy Hyperlipidemia Sister 1 Helen McDuffy Hypertension Sister 1 Helen McDuffy diabetes Sister 1 Helen McDuffy Thyroid disease Sister 2 Relation Name Status Comments Brother Javed Arboleda II Alive Daughter Caren Bruner Alive Father Javed Arboleda Mother Lana Arboleda Sister 1 Helen McDuffy Alive Sister 2 Alive Social History Tobacco Use Types Packs/Day Years Used Date Smoking Tobacco: Never Passive Smoke Exposure: Past Smokeless Tobacco: Never Tobacco Cessation:Counseling Given: Not Answered PHQ-2 Answer Date Recorded PHQ-2 Total Score (If total score is 3 or more points, staff should administer the PHQ-9) 2 04/17/2023 Comments Unknown Sex and Gender Information Value Date Recorded Sex Assigned at Not on file Legal Sex Female 5:51 PM COMMERCIAL ROOFER Gender Identity Not on file Sexual Orientation Not on file Obstetrics History Last Filed Vital Signs Vital Sign Reading Time Taken Comments Blood Pressure 128/56 10/18/2024 10:07 AM CDT Pulse 72 10/18/2024 10:07 AM CDT Temperature - - Respiratory Rate 16 08/15/2024 10:22 AM CDT Oxygen Saturation 98% 10/18/2024 10:07 AM CDT Inhaled Oxygen Concentration - - Weight 109.8 kg (242 lb) 10/18/2024 10:07 AM CDT Height 160 cm (5' 3) 10/18/2024 10:07 AM CDT Body Mass Index 42.87 10/18/2024 10:07 AM CDT Plan of Treatment Health Maintenance [...] 10:2 4 AM CDT us Eliza Allen CRYOLITE RECOVERY OPERATOR POINT OF CARE TEST ORDERA BLES Final Result * (ABNORMAL) POCT glucose (08/15/2024 10:24 AM CDT) Glucose Blood, POC 213 mg/dL Blood 08/15/2024 10:2 4 AM CDT us Eliza Allen CRYOLITE RECOVERY OPERATOR POINT OF CARE TEST ORDERA BLES [...] 08/15/2024 10:56 PM CDT us Eliza Allen NP LAB BLOOD ORDERABLES Nicole l Result [place] [address] [address] [place] [address] * (ABNORMAL) Albumin Creatinine Ratio, Urine (08/15/2024 10:22 AM CDT) Albumin Ur 16.2 mg/L Comment: Interpretive Data No reference range established. Current interpretive data was last revised 2018. Creatinine Ur 54.8 mg/dL [place] Comment: Interpretive Data No reference range established. Current interpretive data was last revised 2018. Albumin Creatinine Ratio, Ur 30(H) 1 - 29 mg/[facility] Urine 08/15/2024 10:2 2 AM CDT 08/15/2024 10:29 PM CDT us Elizabarry Allen CRYOLITE RECOVERY OPERATOR LAB URINE ORDERABLES Nicole l Result Performing Organization Address [facility] de Phone Number [place] [address] [address] [place] [address] * TSH (08/15/2024 10:22 AM CDT) Thyroid Stimulating Hormone 1.53 0.30 - 4.20 mcIUnit/mL Blood 08/15/2024 10:2 2 AM CDT 08/15/2024 10:29 PM CDT us Eliza Allen CRYOLITE RECOVERY OPERATOR LAB BLOOD ORDERABLES Nicole l Result Performing Organization Address [facility] de Phone Number [place] [address] [address] [place] [address] * T4, free (08/15/2024 10:22 AM CDT) Free T4 1.15 0.90 - 1.70 ng/dL Blood 08/15/2024 10:2 2 AM CDT 08/15/2024 10:29 PM CDT us Eliza Allen CRYOLITE RECOVERY OPERATOR LAB BLOOD ORDERABLES Nicole l Result Performing Organization Address [facility] de Phone Number [place] [address] [address] [place] [address] * (ABNORMAL) Lipid panel (08/15/2024 10:22 AM [...] on 2017. Triglycerides 121 <=149 mg/dL [place] Comment: Interpretive Data Ages < [...] on 2017. HDL 36(L) >=40 mg/dL [facility] Comment: Interpretive Data Ages < [...] mg/dL High: >160 mg/dL Calculated using the Mckeon LDL-C estimating equation. This equation was implemented on 2023. Prior to this date LDL-C was estimated using the Friedewald equation. Literature References: 1. Expert Panel on Integrated Guidelines for Cardiovascular Health and Risk Reduction in Children and Adolescents. Pediatrics 2011;128:S213 2. NCEP Expert Panel. Circulation 2004;110:227 3. Mike M et al. RIGOBERTO Cardiol. 2020 September 05;5(5):540-548. doi: 10.1001/jamacardio.2020.0013 Current Interpretive Data was last revised on 2023. Non-HDL Cholesterol 83 mg/dL [facility] Comment: Interpretive Data Ages < or = [...] last revised on 2017. Chol/HDL ratio 3 [facility] Blood 08/15/2024 10:2 2 AM CDT 08/15/2024 10:29 PM CDT us Eliza Allen NP LAB BLOOD ORDERABLES Nicole l Result [facility] [address] [address] [place] [address] * (ABNORMAL) Comprehensive metabolic panel (08/15/2024 10:22 AM CDT) Sodium 138 135 - 145 mmol/L Potassium, pl 4.0 3.3 - 4.9 mmol/L [facility] Chloride 105 97 - 110 mmol/L CERNER [...] 2 AM CDT 08/15/2024 10:29 PM CDT Eliza Allen NP LAB BLOOD ORDERABLES Nicole rodriguez Result [place] [address] [address] [place] [address] * (ABNORMAL) DIABETES EYE EXAM (01/22/2024 8:01 AM CDT) Historical Provider HEALTH MAINTENANCE Edited Result - Final from Last 3 Months or Most Recently Relevant to Health Maintenance Insurance MEDICARE [facility] [employer] Care Teams Ground Nuclear Weapons Assembly Officer Relationship Specialty Start Date End Date Shaka Harris MD PCP - General Internal Medicine 03/14/23
--- OUTSIDE RECORDS SUMMARY | 2024-10-23 01:50 | XMS_ITS | Referral Summary ---
Author Organization [facility] Physician Office Building [address] [place] [phone] Care Team Providers Care Vp Integration Name Role Phone Shaka Harris MD Primary Care Provider [phone] Encounters Date Type Department Care Team Description 10/18/2024 10:00 AM CDT Office Visit [facility] Cardiology at [address] [place] [address] Efrain Pal MD Hypertension associated with type 2 diabetes mellitus (HCC) (Primary Dx); Hyperlipidemia associated with type 2 diabetes mellitus (HCC); Coronary artery disease involving quinault coronary artery of quinault heart without angina pectoris; ARIANE (obstructive sleep apnea); Hypothyroidism, unspecified type; Nonrheumatic aortic (valve) stenosis 08/16/2024 Results Follow-Up [facility] Diabetes and Endocrinology [address] [place] [phone] Eliaz Allen NP TSH, Lipid panel, Comprehensive metabolic panel, Additional followed-up results: 3 08/16/2024 Orders Only [facility] Diabetes and Endocrinology [address] [place] [phone] Eliza Allen NP Acquired hypothyroidism (Primary Dx) 08/15/2024 10:22 AM CDT - 08/15/2024 11:59 PM CDT Hospital Encounter [address] [address] Acquired hypothyroidism; Type 2 diabetes mellitus with hyperglycemia, without long-term current use of insulin (HCC); Hyperlipidemia associated with type 2 diabetes mellitus (HCC); Hypertension associated with type 2 diabetes mellitus (HCC) Discharge Disposition: Discharge to home or self care 08/15/2024 11:15 AM CDT Lab [facility] Out[facility] Lab at [address] [phone] Hyperlipidemia associated with type 2 diabetes mellitus (HCC) (Primary Dx); Hypertension associated with type 2 diabetes mellitus (HCC) 08/15/2024 10:30 AM CDT Office Visit [facility] Diabetes and Endocrinology [address] [place] [phone] Eliza Allen, AUGUSTO Type 2 diabetes [...] 1 tablet (100 mcg total) by mouth collections associate before breakfast 90 tablet 3 08/17/19 25 026 Active multivitamin tabletIndications: Vitamin Deficiency Prevention Take 1 tablet by mouth Active cholecalciferol (VITAMIN D-3) 2000 unit tablet Take 50 mcg by mouth daily 025 Discontin ued(Thera py completed ) om [id number] 6-phytost 500 mg-500 mcg -1 mg-12.5 mg capsule Take by mouth 20/06 025 Discontin ued(Thera py completed ) semaglutide (OZEMPIC) 1 mg/dose (4 mg/3 mL) pen injector injectionIndicatio ns:type 2 diabetes mellitus Inject 1 mg under the skin once a week 3 mL 08/16/19 025 Discontin ued(Thera py completed ) Active Problems Problem Noted Date Diagnosed Date Nonrheumatic aortic (valve) stenosis 10/18/2024 Hyperlipidemia associated with type 2 diabetes codi samy 04/05/2024 Assessment & Plan (08/15/2024 10:57 AM CDT): Chronic problem. At goal on current Atorvastatin 40mg. Last lipid panel: 08/21/23 LDL=67, WY=484 Will update labs. Verified that she uses mychart. Aware to check results/results letter in [employer]. Will contact by phone if needed. Coronary artery disease invo lving quinault coronary artery of quinault heart without angina pectoris 04/05/2024 ARIANE (obstructive sleep apnea) 04/05/2024 Hypertension associated with type 2 diabetes fred litus 08/21/2023 Assessment & Plan (08/15/2024 10:57 AM CDT): Chronic problem. Controlled on current carvedilol 6.25mg bid, losartan 100mg daily, amlodipine 5mg daily Will update labs. Verified that she uses [facility]. Aware to check results/results letter in [facility]. Will contact by phone if needed. Assessment [...] no changes at this time. Will try [facility] to see if Ozempic is any cheaper there. Has been denied PAP for ozempic. Current medications: Metformin XR 500 twice daily Glimepride on sliding scale: less than 110=none, 110-150=1mg, above 150-2mg Ozempic 0.5mg weekly--samples given UTD on DM eye exam (01/22/24 mild NPDR [facility]) Will update labs. Verified that she uses [facility]. Aware to check results/results letter in [facility]. Will contact by phone if needed. Strive [...] weekly--samples given DM eye exam 01/2023 [facility]. 2nd request letter sent to get copy [...] weekly--samples given DM eye exam 01/2023 [facility]. Letter sent to get copy of report. [...] infection. 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 Verified that she uses [facility]. Aware to check results/results letter in [facility]. Will contact by phone if needed. Assessment [...] results. Assessment & Plan (04/17/2023 2:13 PM STORE SALES LEADER): Chronic, well-controlled Continue levothyroxine 100 mcg daily Resolved Problems Problem Noted Date Diagnosed Date Resolved Date Morbid (severe) obesity due to excess calories 08/21/2023 08/21/2023 Body mass index 40.0-44.9, adult ([facility]) 08/21/2023 08/21/2023 Social History Tobacco Use Types [...] on file Legal Sex Female 5:51 PM STORE SALES LEADER Gender Identity Not on file Sexual Orientation [...] 10/18/2024 10:07 AM CDT Plan of Treatment Not on file Procedures Procedure Name Priority Date/Time Associated Diagnosis Comments POCT GLUCOSE Routine 08/15/2024 10:24 AM CDT Type 2 diabetes mellitus with hyperglycemia, without long-term current use of insulin ([facility]) POCT HEMOGLOBIN A1C Routine 08/15/2024 1 0:24 AM CDT Type 2 diabetes mellitus with hyperglycemia, without long-term current use of insulin ([facility]) EGFR Routine 08/15/2024 10:22 AM CDT Type 2 diabetes mellitus with hyperglycemia, without long-term current use of insulin ([facility]) Hypertension associated with type 2 diabetes mellitus ([facility]) T4, FREE Routine 08/15/2024 10:22 AM CDT [...] 10:2 4 AM CDT us Eliza Allen [facility] GRINDER POINT OF CARE TEST ORDERA BLES Final Result * (ABNORMAL) POCT glucose (08/15/2024 10:24 AM CDT) Glucose Blood, POC 213 mg/dL Blood 08/15/2024 10:2 4 AM CDT us Eliza Allen [facility] POINT OF CARE TEST ORDERA BLES Final [...] 08/15/2024 10:56 PM CDT us Eliza Allen [facility] LAB BLOOD ORDERABLES Nicole l Result Performing Organization Address [facility] Co de Phone Number MARION [address] [address] [employer] [place] [address] * (ABNORMAL) Albumin Creatinine Ratio, Urine (08/15/2024 [...] 08/15/2024 10:29 PM CDT us Eliza Allen [facility] LAB URINE ORDERABLES Nicole l Result Performing Organization Address [facility] Co de Phone Number [place] [address] [address] Department [place] [address] * TSH (08/15/2024 10:22 AM CDT) Thyroid Stimulating Hormone 1.53 0.30 - 4.20 mcIUnit/mL Blood 08/15/2024 10:2 2 AM CDT 08/15/2024 10:29 PM CDT Eliza Allen [facility] LAB BLOOD ORDERABLES Nicole l Result Performing Organization Address [facility] Co de Phone Number [facility] [address] [address] Department [place] [address] * T4, free (08/15/2024 10:22 AM CDT) Free T4 1.15 0.90 - 1.70 ng/dL Blood 08/15/2024 10:2 2 AM CDT 08/15/2024 10:29 PM CDT Eliza Allen [facility] LAB BLOOD ORDERABLES Nicole l Result Performing Organization Address [facility] de Phone Number [facility] [address] [address] [email or web address] [address] * (ABNORMAL) Lipid panel (08/15/2024 10:22 AM [...] NCEP Expert Panel. Circulation 2004;110:227 3. Mike Mcpherson al. RIGOBERTO Cardiol. 2020 September 05;5(5):540-548. doi: [...] NP LAB BLOOD ORDERABLES Nicole rodriguez Result [facility] [address] [address] Department [place] [address] * (ABNORMAL) Comprehensive metabolic panel (08/15/2024 10:22 AM CDT) Sodium 138 135 - 145 mmol/L Potassium, pl 4.0 3.3 - 4.9 mmol/L [facility] Chloride 105 97 - 110 mmol/L [facility] CO2 21(L) 22 - 32 mmol/L [facility] Anion gap 12 2 - 15 mmol/L [facility] BUN 17 6 - 25 mg/dL CERNER Creatinine 1.04 0.60 - 1.10 mg/dL CERNER [...] BLOOD ORDERABLES Nicole l Result [place] [address] [address] Department [place] [address] * (ABNORMAL) DIABETES EYE EXAM (01/22/2024 8:01 AM CDT) Historical Provider HEALTH MAINTENANCE Edited Result - Final from Last 3 Months or Most Recently Relevant to Health Maintenance Insurance MEDICARE [employer] [facility] [place] [address] Care Teams Vp Integration Relationship Specialty Start Date End Date Shaka Harris MD PCP - General Internal Medicine 03/14/23
--- OUTSIDE RECORDS SUMMARY | 2024-10-23 01:50 | XMS_ITS | Clinical Summary ---
Author Organization [facility] Address [address] [place] [id number] Care Team Providers Care Supervisor Beehive Kiln Name Role Phone Mabel Villafuerte NP Primary Care Provider [phone] Medications Semaglutide,0.2 5 or 0.5MG/DOS, (Ozempic, 0.25 [...] Description 09/12/2024 12:30 PM CDT Office Visit [facility], [address] [phone] Irvin Porter DO Stage 3a chronic kidney disease (HCC) (Primary Dx); Obstructive sleep apnea syndrome; Diastolic dysfunction; Coronary artery disease due to calcified coronary lesion; Chronic urticaria; Hypertensive chronic kidney disease; Type 2 diabetes mellitus with diabetic chronic kidney disease (HCC); Pure hypercholesterolemia, not otherwise specified; Other specified hypothyroidism 09/12/[address] [facility], [address] [phone] Chika Serrano CMA 09/05/[address] [facility], [address] [phone] Irvin Porter, 09/04/[address] [facility], [address] [phone] Irvin Porter, DO 09/02/[address] [facility], [address] [phone] Irvin Porter, 09/02/[address] [facility], [address] [phone] Irvin Porter, DO from Last 3 Months [...] st Contact Info) Description 03/20/2025 12:45 PM MEDICAL RECORD ADMINISTRATOR Office Visit [address] [phone] Irvin Porter DO [address] [facility] [address] [place] [address] Health Maintenance Due Date Last [...] age to complete this topic Insurance Medicare [facility] [employer] Care Teams Supervisor Beehive Kiln Relationship Specialty Start Date End Date Mabel Villafuerte NP [facility] [address] [place] [address] [place] [address] PCP - General 12/13/21
--- NOTE | 2024-10-23 06:54 | P.OP_ITS ---
Procedure Note - Detailed Date of Procedure 10/23/24 Pre-op Diagnosis left ring trigger finger Post-op Diagnosis Same Procedure Performed left ring finger a1 eric release Surgeon Kirit Lopez MD [employer] Insulation Supervisor chao quintanilla pa-c Anesthesia MAC Description of Procedure INFORMED CONSENT: The patient was seen and examined and marked in the pre-op area.? The patient signed the consent form. PROCEDURE IN DETAIL:The patient taken back to OR on the stretcher in supine position. Time out performed with anesthesia, surgeon and staff agreeing on patient's name site and surgery to be performed SCDs were placed on the lower extremities and inflated. A tourniquet was placed on {left} upper extremity and antibiotics given IV After anesthesia administered sedation I injected {4}cc 1%lidoand 0.5% marcaine plain at the operative site The?{left upper extremity}?was prepped and draped in sterile fashion the??{left upper extremity} was? exsanguinated with Esmarch bandage and tourniquet inflated to 250mmHg I proceeded with making a longitudinal incision over the left ring finger A1 pul luz through skin and dermis with a 15 blade scalpel. Littler scissors were used to spread through subcutaneous tissue down to the A1 eric. The A1 eric was identified initially incised with 15 blade scalpel. Littler scissors were used to spread above it and below it proximally and distally completing the transection entirely. Ragnell retractor was used withdrawal the FDS and FDP tendon for inspection. The tendons were free of masses and synovitis and gliding smoothly and the sheath without triggering or crepitus. I irrigated with normal saline and closed with 4-0 chromic. A dressing of xeroform, 4x4, bouchra, and an belle bandage was applied after the tourniquet was let down noting the hand was warm and well perfused. The patient was then awaken from anesthesia and transferred to the recovery room in stable condition.? Complications - none EBL- 0cc Disposition - home in stable conditions chao quintanilla pa-c was essential for positioning, retraction, closure and dressing placement [facility] Billing Surgery - Charge Forward: Surgery Billing ([phone] [id number] for chao)
--- NOTE | 2024-10-23 06:54 | P.HP_ITS ---
History of Present Illness History of Present Illness Chief complaint: trigger finger Narrative: Patient seen and examined in pre-operative holding area. No interval change in medical history or symptoms. Patient recalls previous discussion of benefits and alternatives to procedure. Continues to desire to proceed with left ring finger a1 eric release . Reviewed procedure, post-op expectations and risks including but not limited to bleeding, infection, injury to tendon/nerve/vessel, decreased hand function, stiffness, RSD, no change or worsening of symptoms. I discussed the possible use of assistants and their participation in the case. Patient stated understanding and signed the consent form wishing to proceed. Review of Systems Review of Systems: All systems reviewed & are unremarkable except as noted in HPI and below PMFSH Past Medical History Medical History Screening mammogram, encounter for Encounter for Papanicolaou smear for cervical cancer screening History of pre-eclampsia (~1977) Arm fracture, right (~1982) Hx of halfway use of blood thinners aspirin 81mg daily Hypothyroid Seizures (~1977) due to toxemia with 1st child History of toxemia of (~1977) Pneumonia (~07/2010) Osteoarthritis Depression Migraine Diabetes Hypertension Hyperlipidemia Surgical History Surgical History Hx of cardiac cath History of right heart catheterization (11/20/09) History of removal of cyst 1992 (L) wrist 2003 (R) wrist 11/15/13 (R) shoulder area History of carpal tunnel surgery (~1988) bilateral History of tubal ligation (~1981) History of 1977 primary c/s--preeclampsia 1980 rpt c/s Family History Family History (Updated 05/14/24 @ 14:20 by SANTIAGO Babin) Mother Diabetes mellitus Heart disease Hypertension Father Diabetes mellitus Heart disease Hypertension Cerebrovascular accident Sibling Hypertension sister Cerebrovascular accident sister Hypothyroidism sister Malignant neoplasm of bones of skull and face brother Other Acute myocardial infarction maternal uncle Daughter Hypertension COPD (chronic obstructive pulmonary disease) Social History Social History (Updated 05/14/24 @ 14:20 by Neha Casanova RMRuby) Smoking status: Never smoker Second hand tobacco smoke exposure: Yes Alcohol intake: current Alcohol use details: rarely 4-5 times year Substance use: never Substance use type: does not use Do You Feel Safe in your Home?: Yes Lack of Transportation: No Lack of Food: Never True Current Housing: I Have Housing Concerned About Future Housing: No Difficulty Paying Gas/Electric Bills: No Difficulty Paying for Meds: No Currently Unemployed: No Education: Associate Degree Difficulty w/ Childcare or Family Care: No Living arrangements: other Additional living arrangements comments: Occupation/Education: retired Gender identity (if verbalized by the patient): Female Sexual Orientation (if Verbalized by the Patient): Straight or Heterosexual Spiritual care concerns: No Meds Home Medications and Allergies Home Medications ?Medication ?Instructions ?Recorded ?Confirmed ?Type amlodipine 5 mg tablet (Norvasc) 5 mg PO DAILY 03/23/21 10/23/24 History aspirin 81 mg tablet 81 mg PO DAILY 03/23/21 10/23/24 History atorvastatin 40 mg tablet 40 mg PO HS 03/23/21 10/14/24 History cetirizine 10 mg tablet 10 mg PO DAILY 03/23/21 10/14/24 History famotidine 40 mg tablet 40 mg PO BID 03/23/21 10/14/24 History montelukast 10 mg tablet 10 mg PO DAILY 03/23/21 10/14/24 History losartan 25 mg tablet 25 mg PO DAILY 04/25/22 10/14/24 History metformin 500 mg tablet,extended 500 mg PO BID 04/25/22 10/14/24 History release 24 hr nitroglycerin 0.4 mg sublingual 0.4 mg sublingual Q5M PRN chest 05/14/24 10/14/24 History tablet pain carvedilol 6.25 mg tablet 6.25 mg PO HS 10/14/24 10/23/24 History glimepiride 1 mg tablet 1 mg PO QAM 10/14/24 10/14/24 History lactobacillus combination no.4 3 3,000 mmu cells PO DAILY 10/14/24 10/14/24 History billion cell capsule (Probiotic) levothyroxine 100 mcg tablet 100 mcg PO QAM 10/14/24 10/23/24 History meclizine 12.5 mg tablet 12.5 mg PO QID PRN dizziness 10/14/24 10/14/24 History multivitamin (One Daily 1 tablet PO DAILY 10/14/24 10/14/24 History Multivitamin tablet) acetaminophen 300 mg-codeine 30 mg 1 tablet PO Q6H PRN pain #12 tabs 10/23/24 Rx tablet Allergies Allergy/AdvReac Type Severity Reaction Status Date / Time Penicillins Allergy Mild Rash Verified 10/23/24 09:49 tramadol AdvReac Severe Other Verified 10/23/24 09:49 adhesive tape AdvReac Rash/REDNES Verified 10/23/24 09:49 S lisinopril AdvReac Cough Verified 10/23/24 09:49 Exam Narrative: unchanged Assessment and Plan Assessment and plan (1) Trigger finger, left ring finger: Code(s): M65.342 - Trigger finger, left ring finger Status: Acute Assessment and Plan: cont as above
[2024-10-23 09:47] LABS: Glucose Point of Care 131 mg/dl (65-105)
[2024-10-23 09:51] VITALS: BP 138/65; PULSE 61; RESP 16; TEMP 36.4; O2SAT 99
[2024-10-23] MEDS: LACTATED RINGERS 1,000 ML 30 ML IV CONT (09:55)
--- NOTE | 2024-10-23 10:56 | P.PNAN_ITS ---
Anes - Initial Pre Proc Eval Procedure: Operation Date: 10/23/24 11:00 Proposed Procedures p Left Ring Finger Release A-1 Aneudy - Kirit Lopez MD Date/Time: 10/23/24 10:56 Surgeon: Kirit Lopez MD Pre Op Diagnosis: trigger finger Patient Data Age: 74 Gender: F Height: 1.59 m Weight: 108.1 kg Last Vital Signs Temp 97.6 F 10/23/24 09:51 Pulse 61 10/23/24 09:51 Resp 16 10/23/24 09:51 BP 138/65 10/23/24 09:51 Pulse Ox 99 10/23/24 09:51 O2 Del Method Room Air 10/23/24 09:51 Allergies Allergy/AdvReac Type Severity Reaction Status Date / Time Penicillins Allergy Mild Rash Verified 10/23/24 09:49 tramadol AdvReac Severe Other Verified 10/23/24 09:49 adhesive tape AdvReac Rash/REDNES Verified 10/23/24 09:49 S lisinopril AdvReac Cough Verified 10/23/24 09:49 Home Medications ?Medication ?Instructions ?Recorded ?Confirmed ?Type amlodipine 5 mg tablet (Norvasc) 5 mg PO DAILY 03/23/21 10/23/24 History aspirin 81 mg tablet 81 mg PO DAILY 03/23/21 10/23/24 History atorvastatin 40 mg tablet 40 mg PO HS 03/23/21 10/14/24 History cetirizine 10 mg tablet 10 mg PO DAILY 03/23/21 10/14/24 History famotidine 40 mg tablet 40 mg PO BID 03/23/21 10/14/24 History montelukast 10 mg tablet 10 mg PO DAILY 03/23/21 10/14/24 History losartan 25 mg tablet 25 mg PO DAILY 04/25/22 10/14/24 History metformin 500 mg tablet,extended 500 mg PO BID 04/25/22 10/14/24 History release 24 hr nitroglycerin 0.4 mg sublingual 0.4 mg sublingual Q5M PRN chest 05/14/24 10/14/24 History tablet pain carvedilol 6.25 mg tablet 6.25 mg PO HS 10/14/24 10/23/24 History glimepiride 1 mg tablet 1 mg PO QAM 10/14/24 10/14/24 History lactobacillus combination no.4 3 3,000 mmu cells PO DAILY 10/14/24 10/14/24 History billion cell capsule (Probiotic) levothyroxine 100 mcg tablet 100 mcg PO QAM 10/14/24 10/23/24 History meclizine 12.5 mg tablet 12.5 mg PO QID PRN dizziness 10/14/24 10/14/24 History multivitamin (One Daily 1 tablet PO DAILY 10/14/24 10/14/24 History Multivitamin tablet) acetaminophen 300 mg-codeine 30 mg 1 tablet PO Q6H PRN pain #12 tabs 10/23/24 Rx tablet Laboratory Tests 10/23/24 09:40 POC Capillary Glucose 131 H mg/dl (65-105) Patient hx anesthesia problems: none Family hx anesthesia problems: none Results Review: All pre-operative results and documents have been reviewed as part of the pre- operative evaluation. [facility] Past Medical History Medical History Screening mammogram, encounter for Encounter for Papanicolaou smear for cervical cancer screening History of pre-eclampsia (~1977) Arm fracture, right (~1982) Hx of longterm use of blood thinners aspirin 81mg daily Hypothyroid Seizures (~1977) due to toxemia with 1st child History of toxemia of (~1977) Pneumonia (~07/2010) Osteoarthritis Depression Migraine Diabetes Hypertension Hyperlipidemia Surgical History Surgical History Hx of cardiac cath History of right heart catheterization (11/20/09) History of removal of cyst 1992 (L) wrist 2003 (R) wrist 11/15/13 (R) shoulder area History of carpal tunnel surgery (~1988) bilateral History of tubal ligation (~1981) History of 1977 primary c/s--preeclampsia 1980 rpt c/s Family History Family History (Updated 05/14/24 @ 14:20 by SANTIAGO Babin) Mother Diabetes mellitus Heart disease Hypertension Father Diabetes mellitus Heart disease Hypertension Cerebrovascular accident Sibling Hypertension sister Cerebrovascular accident sister Hypothyroidism sister Malignant neoplasm of bones of skull and face brother Other Acute myocardial infarction maternal uncle Daughter Hypertension COPD (chronic obstructive pulmonary disease) Social History Social History (Updated 05/14/24 @ 14:20 by Neha Casanova, [facility]) Smoking status: Never smoker Second hand tobacco smoke exposure: Yes Alcohol intake: current Alcohol use details: rarely 4-5 times year Substance use: never Substance use type: does not use Do You Feel Safe in your Home?: Yes Lack of Transportation: No Lack of Food: Never True Current Housing: I Have Housing Concerned About Future Housing: No Difficulty Paying Gas/Electric Bills: No Difficulty Paying for Meds: No Currently Unemployed: No Education: Associate Degree Difficulty w/ Childcare or Family Care: No Living arrangements: other Additional living arrangements comments: Occupation/Education: retired Gender identity (if verbalized by the patient): Female Sexual Orientation (if Verbalized by the Patient): Straight or Heterosexual Spiritual care concerns: No Anes - Eval Final PreProcedure Day of Procedure 10/23/24 10:56 Patient weight: normal Heart: regular rate and rhythm Lungs: clear to auscultation Airway: Mallampati scale class II Neurological: alert and oriented Last oral intake: >/= 8 hours ASA classification: III Emergent: no Anesthetic plan: proceed Anesthesia type and monitoring: general GIVS and standard monitoring Results Review: All pre-operative results and documents have been reviewed as part of the pre- operative evaluation. Informed Consent: The patient's anesthetic plan and its attendant risks and benefits were discussed with the patient/family/POA. Questions were solicited and answers provided to the satisfaction of the patient/family/POA.
[2024-10-23] MEDS: ceFAZolin 2 GM/D5W 50 ML 2 GM/50 ML BAG IVPB (11:16)
[2024-10-23 11:31] VITALS: BP 122/55; PULSE 61; RESP 20; O2SAT 94
[2024-10-23] MEDS: BUPivacaine HCL 0.5% PF 30 ML VIAL INFILTRATE (11:31)
[2024-10-23] MEDS: LIDO 1%/EPINEPHRINE 1:100,000 20 ML VIAL 5 ML INFILTRATE (11:32)
[2024-10-23 11:37] LABS: Glucose Point of Care 132 mg/dl (65-105)
[2024-10-23 12:00] VITALS: BP 101/67; PULSE 61; RESP 18; O2SAT 98
[2024-10-23 12:30] VITALS: BP 136/56; PULSE 53; RESP 18
[2024-10-23 12:43] VITALS: BP 123/86; PULSE 56; RESP 18
== END 2024-10-23 12:58 | disposition home or self-care (01) ==
PROVIDERS: PCP Internal Medicine; Visit Provider Plastic Surgery
PROC: (CPT 26055; principal; 2024-10-23 11:00)
DX: M65.342 Trigger finger, left ring finger (principal); E78.5 Hyperlipidemia, unspecified; I10 Essential (primary) hypertension; E11.9 Type 2 diabetes mellitus without complications; E03.9 Hypothyroidism, unspecified; F32.A Depression, unspecified; R56.9 Unspecified convulsions; M19.90 Unspecified osteoarthritis, unspecified site; Z79.82 Long term (current) use of aspirin; Z80.8 Family history of malignant neoplasm of other organs or systems; Z82.49 Family history of ischemic heart disease and other diseases of the circulatory system
CPT/HCPCS: 26055; 82948; A9270; J0690; J2003; J2004; J2704; J3010; J7120

== ENCOUNTER 2024-11-26 14:32 | Outpatient (RCR) | payer MEDICARE, SELFPAY ==
--- NOTE | 2024-11-26 16:27 | PCCDE ---
DSMT consult completed: notes faxed to referring provider.
== END 2025-02-10 08:47 | disposition home or self-care (01) ==
LOC: ANHDMC 14:32
PROVIDERS: PCP Internal Medicine
DX: E11.65 Type 2 diabetes mellitus with hyperglycemia (principal); Z71.89 Other specified counseling
CPT/HCPCS: G0108

== ENCOUNTER 2024-12-23 09:48 | Outpatient (RCR) | payer MEDICARE, SELFPAY ==
--- NOTE | 2024-12-23 10:42 | OPREHPOC ---
Outpatient Therapy Plan of Care This is a Multidisciplinary Plan of Care that may contain components documented by all disciplines (PT, OT, and ST.) PT Problem 1 PT Problem #1 Knowledge Deficit PT Goal 1 Goal / Goal Update independent and compliant with HEP Target Visit 4 PT Problem 2 PT Problem #2 Impaired Flexibility PT Goal 1 Goal / Goal Update patient to display ability to achieve MCP extension of the bilateral hands with PIP and DIP flexion. patient to display mild tightness of the bilateral finger flexors. 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
--- NOTE | 2024-12-23 10:42 | PTOPEVAL1 ---
Assessment and note entered by JT File, PT Evaluation Information Assessment Status Evaluation Diagnosis post op trigger finger release Onset 10/23/24 Subjective Information patient reports she had trigger finger release on 10/23/24. she reports she doesn't have catching anymore in the L ring finger, but reports she is still not 100%. she reports she still has swelling and is unable to make a fist. she reports she would like to be able to wear the rings on the L hand, make a full fist, and have full strength of the L hand. Reported Pain Level Pain Score 0: Self Report Assessment PT Clinical Summary mrs. flores is a 74 yo woman who presents to skilled PT services for evaluation and treatment of tightness and weakness in the L hand following L ring finger trigger finger release. she displays decreased rom, decreased strength, and mm tightness bilaterally. continued skilled PT is indicated to improve her objective/functional deficits and progress towards a return to her prior level functional activity performance/ quality of life. Plan of Care Interventions Hot Pack/Cold Pack,Manual Therapy,Neuro Re- education,Patient/Caregiver Education,Therapeutic Activities,Therapeutic Exercise,Ultrasound PT Services Indicated Yes Treatment Frequency and 2x weekly for 8 visits Duration These treatments will address the objective and functional deficits as defined above. The patient will be advanced safely and appropriately in order for the patient to progress towards his/her prior level of function. Additional exercises will be introduced and as well as a comprehensive home exercise program upon discharge, if needed, ?to ensure carryover of functional gains achieved in the clinic. This treatment plan has been reviewed and agreement upon by the patient.
--- NOTE | 2025-01-17 08:52 | OPREHPOC ---
Outpatient Therapy Plan of Care This is a Multidisciplinary Plan of Care that may contain components documented by all disciplines (PT, OT, and ST.) PT Problem 1 PT Problem #1 Knowledge Deficit PT Goal 1 Goal / Goal Update independent and compliant with HEP Target Visit 4 Progress Met PT Problem 2 PT Problem #2 Impaired Flexibility PT Goal 1 Goal / Goal Update patient to display ability to achieve MCP extension of the bilateral hands with PIP and DIP flexion. patient to display mild tightness of the bilateral finger flexors. met Target Visit 8 Progress Partially Met PT Problem 3 PT Problem #3 Impaired Range of Motion PT Goal 1 Goal / Goal Update 90+ degrees or better flexion of the PIP's of the L index, long, and ring fingers 70+ degrees or better flexion of the DIP's of the bilateral index, long, and ring fingers 80+ degrees or better flexion of the MCP's of the bilateral index, long, and ring fingers Target Visit 8 Progress Partially Met PT Problem 4 PT Problem #4 Impaired Strength PT Goal 1 Goal / Goal Update patient to display 70lbs or better bilateral die maintenance strength Target Visit 8 Progress Not Met PT Problem 5 PT Problem #5 Impaired Functional Mobility PT Goal 1 Goal / Goal Update quick dash to display 0% functional deficits Target Visit 8 Progress Not Met
--- NOTE | 2025-01-17 08:52 | PTOPDC ---
Assessment and note entered by JT File, PT Evaluation Information Assessment Status Evaluation Diagnosis post op trigger finger release Onset 10/23/24 Subjective Information patient reports she feels Good today. she reports she can feel better mobility of the hand, and better strength. she reports she is compliant with her HEP. she reports she does still feel there is some swelling time to time in the L hand. Reported Pain Level Pain Score 0: Self Report Assessment PT Clinical Summary mrs. flores presents to skilled PT for her 8th skilled therapy visit for the L hand. she displays improve pawn broker strength and finger rom today. she has met or made progress towards all goals as of this date. she will DC skilled PT, and continue with HEP independent going forward. Plan of Care PT Services Indicated Yes
== END 2025-01-17 09:17 | disposition home or self-care (01) ==
LOC: CHSPT 09:48
PROVIDERS: Visit Provider Physician Assistant Surgical
DX: M65.342 Trigger finger, left ring finger (principal)
CPT/HCPCS: 97110; 97140; 97161

== ENCOUNTER 2025-02-17 12:01 | Outpatient (CLI) | payer MEDICARE, SELFPAY ==
--- NOTE | ~2025-02-17 | DEXA_ITS ---
Bone Density Report Name: SACHI RAMIREZ Age: 74 Sex: Female Ethnicity: White Date of : 1950 Indication: postmenopausal; screening for osteoporosis; Referring Provider: Shaka Harris Study: Bone densitometry was performed. Exam Date: February 17, 2025 Accession number: [id number] Bone Density: Region BMD T-score Z-score Classification AP Spine(L1-L4) 1.256 1.9 4.2 Normal Femoral Neck (Left) 0.949 0.9 2.8 Normal Total Hip (Left) 1.083 1.2 2.8 Normal Femoral Neck (Right) 0.980 1.2 3.1 Normal Total Hip (Right) 1.093 1.2 2.9 Normal Femoral Neck Mean 0.964 1.0 3.0 Normal Total Hip Mean 1.088 1.2 2.8 Normal World Health Organization criteria for BMD impression classify patients as: Normal (T-score at or above -1.0), Osteopenia (T-score between -1.0 and -2.5), or Osteoporosis (T-score at or below -2.5). 10-year Fracture Risk: FRAX not reported because: All T-scores for Spine Total, Hip Total, Femoral Neck at or above -1.0 Clinical Information Provided by Patient: Has used the following medications: Vitamin D, Calcium, MULTI Has the following medical conditions: Stage 3 Renal Disease Patient maximum height was 63.0 Menopause Age: 52 Drinks caffeinated beverages Onset of menses at age 13 Number of children 2 Missed period for more than 6 months in a row Impression: The patient has normal bone mass. Discussion: LOW RISK OF FRACTURE; BONE DENSITY IS WELL ABOVE THE MINIMUM DESIRABLE LEVEL AND ABOVE AVERAGE FOR AGE AND SEX AT ALL SKELETAL SITES TESTED. This person's bone density is above expected limits for age and sex. This is rarely clinically significant, but should be pursued if there are significant musculoskeletal complaints. The patient should follow a healthful lifestyle (good nutrition with adequate calcium and vitamin D, and appropriate weight-bearing exercise). Follow-Up: Consider repeating this study in 5 years or sooner if there is some new clinical indication. Reported by: CHE on 02/17/2025 12:26:00 PM. Reviewed, dictated and finalized at location A.
== END 2025-02-17 12:02 | disposition home or self-care (01) ==
LOC: CHSIMG 12:02
PROVIDERS: PCP Internal Medicine; Visit Provider Internal Medicine
DX: Z78.0 Asymptomatic menopausal state (principal)
CPT/HCPCS: 77080

== ENCOUNTER 2025-03-10 10:05 | Outpatient (CLI) | payer MEDICARE, SELFPAY ==
[2025-03-10 10:24] LABS: Hematocrit 37.3 % (35.0-42.0); Hemoglobin 12.0 g/dL (11.7-13.8); Mean Corpuscular HGB Conc 32.2 g/dL (32-36); Mean Corpuscular Hemoglobin 27.6 pg (27.0-31.0); Mean Corpuscular Volume 85.9 fL (78.0-102.0); Platelet Count Result 312 K/mm3 (150-420); Red Blood Count 4.34 M/mm3 (4.20-5.40); White Blood Count 7.4 K/mm3 (4.8-10.8)
[2025-03-10 10:28] LABS: Add Urine Microscopic? NO; Appearance Urine Clear (Clear); Glucose Urine UA Negative (Negative); Leukocyte Esterase Ur Negative (Negative); Nitrate Urine Negative (Negative); Specific Grav Ur 1.025 (1.010-1.020)
[2025-03-10 10:39] LABS: Total Protein Urine Random 23 mg/dL; Ur Ttl Prot Creatinine Ratio 0.32 mg/mg (0-0.20)
[2025-03-10 10:41] LABS: Hemoglobin A1C 7.2 % (<5.7)
[2025-03-10 10:44] LABS: MALB Creatinine Ratio 125.0 mg/g (0-30)
[2025-03-10 10:47] LABS: Albumin Level 4.4 g/dL (3.5-5.1); Anion Gap 8 mmol/L (4-12); Blood Urea Nitrogen 22 mg/dL (7-17); Calcium 10.9 mg/dL (8.4-10.2); Carbon Dioxide 26 mmol/L (22-30); Chloride 107 mmol/L (98-107); Estimated Glomerular Filt Rate 45; Glucose 154 mg/dL (65-110); Magnesium 1.8 mg/dL (1.6-2.3); Osmolality Calculated 298 mOsm/kg (285-295); Potassium 4.7 mmol/L (3.4-5.0); Sodium 141 mmol/L (137-145)
--- OUTSIDE RECORDS SUMMARY | 2025-03-10 11:07 | XMS_ITS | Clinical Summary ---
Author Organization [facility] [address] [place] [id number] Care Team Providers Care Picker And Sorter Load And Unload Name Role Phone Shaka Harris MD Primary Care Provider [phone] Allergies Active Allergy Reactions Criticality Noted Date Comments Adhesive Redness Low 02/29/2016 Paper tape Ampicillin Hives Medium 02/29/2016 Lisinopril Unknown 02/29/2016 Medications aspirin 81 mg enteric coated tablet Take [...] (10 mg total) by mouth daily Active metFORMIN XR (GLUCOPHAGE XR) 500 mg 24 hr tabletIndications: Type 2 diabetes mellitus with hyperglycemia, without long-term current use of insulin ([facility]) Take 1 tablet (500 mg total) by mouth 2 (two) times a day 180 tablet 1 07/03/19 25 Active levothyroxine (SYNTHROID) 100 mcg tabletIndications: Acquired hypothyroidism Take 1 tablet (100 mcg total) by mouth team cdl driver before breakfast 90 tablet 3 08/17/19 25 026 Active multivitamin tabletIndications: Vitamin Deficiency Prevention Take 1 tablet by mouth Active amLODIPine (NORVASC) 5 mg tablet Take 1 tablet (5 mg total) by mouth daily 90 tablet 3 10/30/19 25 Active blood glucose diagnostic (True Metrix Glucose Test Strip) stripIndications:T ype 2 diabetes mellitus with hyperglycemia, without long-term current use of insulin (HCC) USE TO CHECK BLOOD SUGAR DAILY 200 strip 3 11/21/19 25 Active nitroglycerin (NITROSTAT) 0.[address] 1 tablet (0.4 mg total) under the tongue every 5 (five) minutes as needed for chest pain Active semaglutide (OZEMPIC) 0.25 mg or 0.5 mg (2 mg/3 mL) pen injector injectionIndicatio ns:Type 2 diabetes mellitus with hyperglycemia, without long-term current use of insulin ([facility]) Inject 0.5 mg under the skin once a week 9 mL 3 02/14/20 25 026 Active glimepiride (AMARYL) 2 mg tabletIndications: Type 2 diabetes mellitus with hyperglycemia, without long-term current use of insulin ([facility]) Take 1 tablet (2 mg total) by mouth daily before breakfast 90 tablet 3 02/14/20 25 026 Active glimepiride (AMARYL) 2 mg tablet Take 0.5 tablets (1 mg total) by mouth daily before breakfast 06/29/19 24 025 Discontin ued(Reord er) Active Problems Problem Noted Date Diagnosed Date Stage 3a chronic kidney disease 02/13/2025 Assessment & Plan (02/13/2025 11:08 AM CDT): Chronic problem. Managed by Dr Shirin Porter; [facility] 09/2024; NOV 03/20/25 Nephropathy: On TERRY-I / ARB s : Yes. Losartan 100mg. Last MA: 08/15/24 (30) Last creat/GFR: 08/15/24 GFR=57, CR=1.04 Nonrheumatic aortic (valve) stenosis 10/18/2024 Hyperlipidemia associated with type 2 diabetes codi pablo 04/05/2024 Assessment & Plan (02/13/2025 11:05 AM CDT): Chronic problem. At goal on current Atorvastatin 40mg. Last lipid panel: 08/15/24 LDL=61, JF=529 Assessment & Plan (08/15/2024 10:57 AM CDT): Chronic problem. At goal on current Atorvastatin 40mg. Last lipid panel: 08/21/23 LDL=67, SW=402 Will update labs. Verified that she uses [facility]. Aware to check results/results letter in [employer]. Will contact by phone if needed. Coronary artery disease invo lving [place] coronary artery of [place] heart without angina pectoris 04/05/2024 ARIANE (obstructive sleep apnea) 04/05/2024 Hypertension associated with type 2 diabetes fred silvestre 08/21/2023 Assessment & Plan (02/13/2025 11:05 AM CDT): Chronic problem. Controlled on current carvedilol 6.25mg bid, losartan 100mg daily, amlodipine 5mg daily Assessment & Plan (08/15/2024 10:57 AM CDT): Chronic problem. Controlled on current carvedilol 6.25mg bid, losartan 100mg daily, amlodipine 5mg daily Will update labs. Verified that she uses [facility]. Aware to check results/results letter in [employer]. Will contact by phone if needed. Assessment [...] use of insulin 04/17/2023 Assessment & Plan (02/13/2025 11:42 AM CDT): Chronic problem. A1c near goal & increased from 6.3% 08/15/24 to now 7.1%. -increase Glimepiride from 1mg to 2 mgs. If you improve diet; may need to decrease back to 1mg -will contact [facility] pharmacy to see if Ozempic is cheaper there. Current medications: Metformin XR 500 twice daily Glimepride 2 mg Ozempic 0.25mg weekly--has not yet been able to get. UTD on DM eye exam (01/22/24 mild NPDR [facility]). Had appt 01/2025; letter sent to get copy of report. [...] skin breakdown and infection. Assessment & Plan (08/15/2024 11:22 AM CDT): Chronic problem. A1c stable but increased slightly from 6.% 02/15/24 to now 6.3%. no changes at this time. Will try [facility] pharmacy to see if Ozempic is any cheaper there. Has been denied PAP for ozempic. Current medications: Metformin XR 500 twice daily Glimepride on sliding scale: less than 110=none, 110-150=1mg, above 150-2mg Ozempic 0.5mg weekly--samples given UTD on DM eye exam (01/22/24 mild NPDR [facility]) Will update labs. Verified that she uses [facility]. Aware to check results/results letter in [facility]. Will contact by phone if needed. Strive [...] weekly--samples given DM eye exam 01/2023 [facility]. 2nd request letter sent to get copy [...] weekly--samples given DM eye exam 01/2023 [facility]. Letter sent to get copy of report. [...] infection. Assessment & Plan (04/17/2023 2:13 PM [employer]PENTER PROTOTYPE): Hba1c was Lab Results Component Value Date [...] mg weekly Hypothyroidism 04/17/2023 Assessment & Plan (02/13/2025 11:06 AM CDT): Chronic problem. Clinically & biochemically euthyroid. Currently taking levothyroxine 100mcg daily. Last TFTs 08/2024 WNL. Aware to take 1st thing in morning, 30-60 minutes before food/drink/other medications. Assessment & Plan (08/15/2024 10:58 AM CDT): Chronic problem. Clinically euthyroid. Currently taking levothyroxine 100mcg daily. Last TFTs 08/2023 WNL. Aware to take 1st thing in morning, 30-60 minutes before food/drink/other medications. Will update labs. Verified that she uses [facility]. Aware to check results/results letter in [facility]. Will contact by phone if needed. Assessment [...] results. Assessment & Plan (04/17/2023 2:13 PM CARPENTER PROTOTYPE): Chronic, well-controlled Continue levothyroxine 100 mcg daily Resolved Problems Problem Noted Date Diagnosed Date Resolved Date Morbid (severe) obesity due to excess calories 08/21/2023 08/21/2023 Body mass index 40.0-44.9, adult (CMS/HCC) 08/21/2023 08/21/2023 Encounters Date Type Department Care Team Description 02/27/2025 Orders Only [facility] Medical [facility] Diabetes and Endocrinology [address] [place] [phone] ProviderDennis MD 02/13/2025 11:00 AM CDT Office Visit [facility] Medical [facility] Diabetes and Endocrinology [address] [place] [phone] Eliza Allen NP Type 2 diabetes mellitus with hyperglycemia, without long-term current use of insulin (HCC) (Primary Dx); Hypertension associated with type 2 diabetes mellitus (HCC); Hyperlipidemia associated with type 2 diabetes mellitus (HCC); Stage 3a chronic kidney disease (HCC); Acquired hypothyroidism from Last 3 Months Surgical History Surgery Date Site/Laterality Comments SECTION TUBAL LIGATION WRIST SURGERY CYST REMOVAL CORONARY ANGIOPLASTY 05/08/2020 - 05/07/2021 Medical History Medical History Date Comments Type 2 diabetes mellitus Hypothyroidism 04/17/2023 Hypertension Hyperlipidemia Sleep apnea Seizures (HCC) December 1977 with toxemia. Chronic kidney disease Stage 3 2021? Cataract [place] [id number] Arthritis Years. Mild Family History Medical History Relation Name Comments Cancer Brother Javed Arboleda II Hypertension Daughter Caren Bruner Dementia Father Javed Robles Heart disease Father Javed Parishkaw Stroke Father Javed Robles Heart attack Mother Lana Parishkaw Heart disease Mother Lana Leyvaw Miscarriages / Stillbirths Mother Lana Parishkaw COPD Sister 1 Helen McDuffy Diabetes Sister 1 Helen McDuffy Heart attack Sister 1 Helen McDuffy Heart disease Sister 1 Helen McDuffy Hyperlipidemia Sister 1 Helen Ocasiouffy Hypertension Sister 1 Helen McDuffy diabetes Sister 1 Helen McDuffy Thyroid disease Sister 2 Relation Name Status Comments Brother Javed Arboleda II Alive Daughter Caren Bruner Alive Father Javed Arboleda Mother Lana Arboleda Sister 1 Helen Fulton Alive Sister 2 Alive Social History Tobacco Use Types Packs/Day Years Used Date Smoking Tobacco: Never Passive Smoke Exposure: Past Smokeless Tobacco: Never Tobacco Cessation:Counseling Given: Not Answered PHQ-2 Answer Date Recorded PHQ-2 Total Score (If total score is 3 or more points, staff should administer the PHQ-9) 2 04/17/2023 Comments No Sex and Gender Information Value Date Recorded Sex Assigned at Not on file Legal Sex Female 5:51 PM CARPENTER PROTOTYPE Gender Identity Not on file Sexual Orientation Not on file Last Filed Vital Signs Vital Sign Reading Time Taken Comments Blood Pressure 126/70 02/13/2025 10:55 AM CDT Pulse 60 02/13/2025 10:55 AM CDT Temperature - - Respiratory Rate 16 02/13/2025 10:5 5 AM CDT Oxygen Saturation 98% 10/18/2024 10: 07 AM CDT Inhaled Oxygen Concentration - - Weight 109.4 kg (241 lb 1.6 oz) 025 10:55 AM CDT Height 160 cm (5' 2.99) 02/13/2025 10: 55 AM CDT Body Mass Index 42.72 02/13/2025 10:55 AM CDT Plan of Treatment Health Maintenance Due Date Last Done Comments Breast Cancer Screening-Mammogram 1950 Colon Cancer Screening-Colonoscopy 1950 Hepatitis C Screening 1950 Osteoporosis Screening-Bone Density Scan 1950 Zoster Vaccine (1 of 2) 2002 Pneumococcal vaccine 65+ (2 of 2 - PCV) 03/19/2008 03/19/2007 Well Visit 65+ 2017 Depression Screening 04/17/2024 04/17/2023 Fall Risk Assessment 04/17/2024 04/17/2023 Influenza Vaccine (#1) 2025 9, 03/12/2018, 03/21/2017, Additional history exists Hemoglobin A1C 08/14/2025 02/13/2025, 04, 02/15/2024, Additional history exists Albumin Creatinine Ratio, Urine 08/15/2025 , 08/21/2023 Foot Exam 08/15/2025 08/15/2024, 08/21/2023 Lipid Panel 08/15/2025 08/15/2024, 08/06, 12/19/2018 eGFR 08/15/2025 08/15/2024, 08/21/2023 Dilated Eye Exam 01/27/2026 01/27/2025, , 01/23/2023 DTaP/Tdap/Td Vaccine (3 - Td or Tdap) 09/22/2031 09/21/2021, 09/29/2011, 11/02/2005, Additional history exists Hepatitis B Screening Completed 12/04/2018 Procedures Procedure Name Priority Date/Time Associated Diagnosis Comments POCT HEMOGLOBIN A1C Routine 02/13/2025 1 1:07 AM CDT Type 2 diabetes mellitus with hyperglycemia, without long-term current use of insulin (HCC) POCT GLUCOSE Routine 02/13/2025 11:00 AM CDT Type 2 diabetes mellitus with hyperglycemia, without long-term current use of insulin (HCC) HM DIABETES EYE EXAM Routine 01/27/2025 7:24 AM CDT EGFR Routine 08/15/2024 10:22 AM CDT Type 2 diabetes mellitus with hyperglycemia, without long-term current use of insulin (HCC) Hypertension associated with type 2 diabetes mellitus (HCC) LIPID PANEL Routine 08/15/2024 10:22 AM CDT Type 2 diabetes mellitus with hyperglycemia, without long-term current use of insulin (HCC) Hyperlipidemia associated with type 2 diabetes mellitus (HCC) ALBUMIN CREATININE RATIO, URINE Routine 08/15/2024 10:22 AM CDT Type 2 diabetes mellitus with hyperglycemia, without long-term current use of insulin (HCC) from Last 3 Months or Most Recently Relevant to Health Maintenance Results * (ABNORMAL) POCT hemoglobin A1c (02/13/2025 11:07 AM CDT) Hemoglobin A1C, POC 7.1(A) 4.0 - 5.6 % Blood 02/13/2025 11:0 7 AM CDT Eliza Allen GLASS CHECKER POINT OF CARE TEST ORDERA BLES Final Result * (ABNORMAL) POCT glucose (02/13/2025 11:00 AM CDT) Glucose Blood, POC 233 Normal Fasting 70 - 100, Random <200 mg/dL Blood 02/13/2025 11:0 0 AM CDT us Elizabarry Allen GLASS CHECKER POINT OF CARE TEST ORDERA BLES Final Result * (ABNORMAL) DIABETES EYE EXAM (01/27/2025 7:24 AM CDT) Historical Provider HEALTH MAINTENANCE Final Result * (ABNORMAL) eGFR (08/15/2024 10:22 [...] 2 AM CDT 08/15/2024 10:56 PM CDT Elizabarry Allen GLASS CHECKER LAB BLOOD ORDERABLES Nicole l Result Performing Organization Address [facility] de Phone Number [facility] [address] [facility] [place] [address] * (ABNORMAL) Albumin Creatinine Ratio, Urine (08/15/2024 10:22 AM CDT) Albumin Ur 16.2 mg/L Comment: Interpretive Data No reference range established. Current interpretive data was last revised 2018. Creatinine Ur 54.8 mg/dL [facility] Comment: Interpretive Data No reference range established. Current interpretive data was last revised 2018. Albumin Creatinine Ratio, Ur 30(H) 1 - 29 mg/g [facility] Urine 08/15/2024 10:2 2 AM CDT 08/15/2024 10:29 PM CDT Eliza Allen GLASS CHECKER LAB URINE ORDERABLES Nicole l Result Performing Organization Address [facility] de Phone Number [facility] [address] [address] [facility] [place] [address] * (ABNORMAL) Lipid panel (08/15/2024 10:22 AM [...] BLOOD ORDERABLES Nicole l Result [place] [id number] [address] [place] [address] from Last 3 Months or Most Recently Relevant to Health Maintenance Insurance MEDICARE [email or web address] Care Teams Picker And Sorter Load And Unload Relationship Specialty Start Date End Date Shaka Harris MD PCP - General Internal Medicine 03/14/23
--- OUTSIDE RECORDS SUMMARY | 2025-03-10 11:07 | XMS_ITS | Patient Health Record ---
Author Organization [facility] Address [address] [place], [place] [id number] Care Team Providers Care Newspaper Peddler Name Role Phone ANIBAL LAMBERT Unavailable [phone] Shaka Harris Unavailable Unavailable Reason For Referral No Information Medications Medication SIG (Take, Route, Frequency, Duration) Notes Start Date End Date Status metformin hydrochloride 1000 MG Oral Tablet ORAL metformin hydrochloride 1000 MG Oral TabletOriginal Medicationmetformin hydrochloride 1000 MG Oral Tablet *Reorder from [employer] for eRx and Interaction Alerts* Active levothyroxine sodium 0.1 MG Oral Tablet [Synthroid] ORAL levothyroxine sodium 0.1 MG Oral Tablet [Synthroid]Original Medicationlevothyroxine sodium 0.1 MG Oral Tablet [Synthroid] *Reorder from [employer] for eRx and Interaction Alerts* Active Lovastatin 10 MG Oral Tablet ORAL lovastatin 10 MG Oral TabletOriginal Medicationlovastatin 10 MG Oral Tablet *Reorder from [employer] for eRx and Interaction Alerts* Active glyBURIDE 1.25 MG Oral Tablet ORAL glyburide 1.25 MG Oral TabletOriginal Medicationglyburide 1.25 MG Oral Tablet *Reorder from [employer] for eRx and Interaction Alerts* 013 Active calcium polycarbophil 625 MG Oral Tablet [FiberCon] ORAL calcium polycarbophil 625 MG Oral Tablet [FiberCon]Original Medicationcalcium polycarbophil 625 MG Oral Tablet [FiberCon] *Reorder from [employer] for eRx and Interaction Alerts* 013 Active calcium carbonate 1250 MG / cholecalciferol 125 UNT Oral Tablet ORAL calcium carbonate 1250 MG / cholecalciferol 125 UNT Oral TabletOriginal Medicationcalcium carbonate 1250 MG / cholecalciferol 125 UNT Oral Tablet *Reorder from [employer] for eRx and Interaction Alerts* Active aspirin 81 MG Effervescent Oral Tablet ORAL aspirin 81 MG Effervescent O ral TabletOriginal Medicationaspirin 81 MG Effervescent Oral Tablet *Reorder from [employer] for eRx and Interaction Alerts* Active Metoprolol Tartrate 25 MG Oral Tablet ORAL metoprolol tartrate 25 MG Or al TabletOriginal Medicationmetoprolol tartrate 25 MG Oral Tablet *Reorder from [employer] for eRx and Interaction Alerts* Active hydrochlorothiazide 25 MG / triamterene 37.5 MG Oral Capsule [Dyazide] ORAL hydrochlorothiazide 25 MG / triamterene 37.5 MG Oral Capsule [Dyazide]Original Medicationhydrochlorothiazide 25 MG / triamterene 37.5 MG Oral Capsule [Dyazide] *Reorder from [employer] for eRx and Interaction Padmini Active Social History Social History Additional Details Category Social Info Options Details Migrated Social History Migrated Social History Alcohol intake : , History of tobacco use : , Smoking Status : Never smoked Plan Of Treatment No Information Insurance Providers Payer Name Payer Address Payer Phone Subscriber Number Group Number Insured Name Patient Relationship to Insured Coverage Start Date Coverage End Date [facility] [address] [address] [place] [id number] SACHI RAMIREZ Self - patient is the insured
[2025-03-17 12:08] LABS: eGFR 34 (>59)
== END 2025-03-10 10:06 | disposition home or self-care (01) ==
LOC: CHSLAB 10:11
PROVIDERS: PCP Internal Medicine
DX: N18.31 Chronic kidney disease, stage 3a (principal); G47.33 Obstructive sleep apnea (adult) (pediatric); I51.9 Heart disease, unspecified; I25.84 Coronary atherosclerosis due to calcified coronary lesion; L50.8 Other urticaria; I12.9 Hypertensive chronic kidney disease with stage 1 through stage 4 chronic kidney disease, or unspecified chronic kidney disease; E11.22 Type 2 diabetes mellitus with diabetic chronic kidney disease; E78.00 Pure hypercholesterolemia, unspecified; E03.8 Other specified hypothyroidism
CPT/HCPCS: 36415; 80069; 81003; 82043; 82306; 82570; 82610; 83036; 83735; 84156; 85027

== ENCOUNTER 2025-03-11 14:44 | Outpatient (CLI) | payer MEDICARE, SELFPAY ==
--- NOTE | ~2025-03-11 | MM_ITS ---
EXAMINATION: MM screening [facility] w [facility] HISTORY: Screening TECHNIQUE: Craniocaudal and mediolateral oblique 3-D tomosynthesis images were obtained and synthetic 2-D images were generated. CAD analysis was submitted and interpreted. COMPARISON: Comparison to multiple prior studies sequentially, with oldest reviewed study dated , 09/10/2019 BREAST PARENCHYMAL COMPOSITION: The breasts are almost entirely fatty. FINDINGS: There is no evidence of suspicious mass, calcification, or architectural distortion to suggest malignancy in either breast. IMPRESSION: 1. No mammographic evidence of malignancy. 2. Recommend routine screening mammography in one year. BI-RADS Category 1: Negative Reviewed, dictated and finalized at location B. [place] CHIEF ENGINEER
--- OUTSIDE RECORDS SUMMARY | 2025-03-11 16:13 | XMS_ITS | Patient Health Record ---
Author Organization [facility] Address [address] [place], [place] [id number] Care Team Providers Care Gate Technician Name Role Phone ANIBAL LAMBERT Unavailable [phone] Shaka Harris Unavailable Unavailable Reason For Referral No Information Medications Medication SIG (Take, Route, Frequency, Duration) Notes Start Date End Date Status metformin hydrochloride 1000 MG Oral Tablet ORAL metformin hydrochloride 1000 MG Oral TabletOriginal Medicationmetformin hydrochloride 1000 MG Oral Tablet *Reorder from [employer] for eRx and Interaction Alerts* Active levothyroxine sodium 0.1 MG Oral Tablet [Synthroid] ORAL levothyroxine sodium 0.1 MG Oral Tablet [Synthroid]Original Medicationlevothyroxine sodium 0.1 MG Oral Tablet [Synthroid] *Reorder from [employer] for eRx and Interaction Alerts* Active Lovastatin 10 MG Oral Tablet ORAL lovastatin 10 MG Oral TabletOriginal Medicationlovastatin 10 MG Oral Tablet *Reorder from [employer] for eRx and Interaction Alerts* Active glyBURIDE 1.25 MG Oral Tablet ORAL glyburide 1.25 MG Oral TabletOriginal Medicationglyburide 1.25 MG Oral Tablet *Reorder from [employer] for eRx and Interaction Alerts* 013 Active calcium polycarbophil 625 MG Oral Tablet [FiberCon] ORAL calcium polycarbophil 625 MG Oral Tablet [FiberCon]Original Medicationcalcium polycarbophil 625 MG Oral Tablet [FiberCon] *Reorder from [employer] for eRx and Interaction Alerts* 013 Active calcium carbonate 1250 MG / cholecalciferol 125 UNT Oral Tablet ORAL calcium carbonate 1250 MG / cholecalciferol 125 UNT Oral TabletOriginal Medicationcalcium carbonate 1250 MG / cholecalciferol 125 UNT Oral Tablet *Reorder from [employer] for eRx and Interaction Alerts* Active aspirin 81 MG Effervescent Oral Tablet ORAL aspirin 81 MG Effervescent O ral TabletOriginal Medicationaspirin 81 MG Effervescent Oral Tablet *Reorder from [employer] for eRx and Interaction Alerts* Active Metoprolol Tartrate 25 MG Oral Tablet ORAL metoprolol tartrate 25 MG Or al TabletOriginal Medicationmetoprolol tartrate 25 MG Oral Tablet *Reorder from [employer] for eRx and Interaction Alerts* Active hydrochlorothiazide 25 MG / triamterene 37.5 MG Oral Capsule [Dyazide] ORAL hydrochlorothiazide 25 MG / triamterene 37.5 MG Oral Capsule [Dyazide]Original Medicationhydrochlorothiazide 25 MG / triamterene 37.5 MG Oral Capsule [Dyazide] *Reorder from [employer] for eRx and Interaction Padmini Active Social [...] Insured Coverage Start Date Coverage End Date [facility] [address] [address] [place] [id number] SACHI RAMIREZ Self - patient is the insured
--- OUTSIDE RECORDS SUMMARY | 2025-03-11 16:13 | XMS_ITS | Clinical Summary ---
Author Organization [facility] Physician Office Building [address] [place] [phone] Care Team Providers Care Consumer Insights Specialist Name Role Phone Shaka Harris MD Primary Care Provider [phone] Allergies Active Allergy Reactions Criticality Noted Date [...] hyperglycemia, without long-term current use of insulin ([facility]) Take 1 tablet (500 mg total) by mouth 2 (two) times a day 180 tablet 1 07/03/19 25 Active levothyroxine (SYNTHROID) 100 mcg tabletIndications: Acquired hypothyroidism Take 1 tablet (100 mcg total) by mouth repairer and checker before breakfast 90 tablet 3 08/17/19 25 [...] hyperglycemia, without long-term current use of insulin ([facility]) Inject 0.5 mg under the skin once a week 9 mL 3 02/14/20 25 026 Active glimepiride (AMARYL) 2 mg tabletIndications: Type 2 diabetes mellitus with hyperglycemia, without long-term current use of insulin ([facility]) Take 1 tablet (2 mg total) by [...] Atorvastatin 40mg. Last lipid panel: 08/15/24 LDL=61, AK=299 Assessment & Plan (08/15/2024 10:57 AM CDT): Chronic problem. At goal on current Atorvastatin 40mg. Last lipid panel: 08/21/23 LDL=67, YE=598 Will update labs. Verified that she uses [facility]. Aware to check results/results letter in [employer]. Will contact by phone if needed. Coronary artery disease invo lving [place] coronary artery of [place] heart without angina pectoris 04/05/2024 ARIANE (obstructive [...] mychart. Aware to check results/results letter in [facility]. Will contact by phone if needed. Assessment [...] to decrease back to 1mg -will contact [facility] pharmacy to see if Ozempic is cheaper there. Current medications: Metformin XR 500 twice daily Glimepride 2 mg Ozempic 0.25mg weekly--has not yet been able to get. UTD on DM eye exam (01/22/24 mild NPDR [facility]). Had appt 01/2025; letter sent to get [...] no changes at this time. Will try [facility] pharmacy to see if Ozempic is any cheaper there. Has been denied PAP for ozempic. Current medications: Metformin XR 500 twice daily Glimepride on sliding scale: less than 110=none, 110-150=1mg, above 150-2mg Ozempic 0.5mg weekly--samples given UTD on DM eye exam (01/22/24 mild NPDR [facility]) Will update labs. Verified that she uses [facility]. Aware to check results/results letter in [facility]. Will contact by phone if needed. Strive [...] weekly--samples given DM eye exam 01/2023 [facility]. 2nd request letter sent to get copy [...] weekly--samples given DM eye exam 01/2023 [facility]. Letter sent to get copy of report. [...] infection. Assessment & Plan (04/17/2023 2:13 PM VOLUNTEER SERVICES SUPERVISOR): Hba1c was Lab Results Component Value [...] Will update labs. Verified that she uses [facility]. Aware to check results/results letter in [facility]. Will contact by phone if needed. Assessment [...] results. Assessment & Plan (04/17/2023 2:13 PM VOLUNTEER SERVICES SUPERVISOR): Chronic, well-controlled Continue levothyroxine 100 mcg daily Resolved Problems Problem Noted Date Diagnosed Date Resolved Date Morbid (severe) obesity due to excess calories 08/21/2023 08/21/2023 Body mass index 40.0-44.9, adult (CMS/HCC) 08/21/2023 08/21/2023 Encounters Date Type Department Care Team Description 02/27/2025 Orders Only [facility] Medical [facility] Diabetes and Endocrinology [address] [place] [phone] ProviderDennis MD 02/13/2025 11:00 AM CDT Office Visit [facility] Medical [facility] Diabetes [facility] Endocrinology [address] [place] [phone] Eliza Allen NP Type 2 diabetes mellitus [...] [place] [id number] Arthritis Years. Mild Family History Medical History [...] on file Legal Sex Female 5:51 PM VOLUNTEER SERVICES SUPERVISOR Gender Identity Not on file Sexual [...] 02/13/2025 11:0 7 AM CDT Eliza Allen [employer] HEAT WELDER POINT OF CARE TEST ORDERA BLES Final Result * (ABNORMAL) POCT glucose (02/13/2025 11:00 AM CDT) Glucose Blood, POC 233 Normal Fasting 70 - 100, Random <200 mg/dL Blood 02/13/2025 11:0 0 AM CDT us Elizabarry Allen [employer]LAST[employer] HEAT WELDER POINT OF CARE TEST ORDERA BLES Final [...] CDT 08/15/2024 10:56 PM CDT Elizabarry Allen [employer] [facility] LAB BLOOD ORDERABLES Nicole l Result Performing Organization Address [facility] de Phone Number [facility] [address] [address] [facility] [place] [address] * (ABNORMAL) Albumin Creatinine Ratio, Urine (08/15/2024 10:22 AM CDT) Albumin Ur 16.2 mg/L Comment: Interpretive Data No reference range established. Current interpretive data was last revised 2018. Creatinine Ur 54.8 mg/dL [facility] Comment: Interpretive Data No reference range established. Current interpretive data was last revised 2018. Albumin Creatinine Ratio, Ur 30(H) 1 - 29 mg/g [facility] Urine 08/15/2024 10:2 2 AM CDT 08/15/2024 10:29 PM CDT Eliza Allen PLASTICS HEAT WELDER LAB URINE ORDERABLES Nicole l Result Performing Organization Address [facility] de Phone Number [facility] [address] [address] [facility] [place] [address] * (ABNORMAL) Lipid panel (08/15/2024 10:22 AM [...] BLOOD ORDERABLES Nicole l Result [place] [id number] [address] Department [place] [address] from Last 3 Months or Most Recently Relevant to Health Maintenance Insurance MEDICARE [employer] Care Teams Consumer Insights Specialist Relationship Specialty Start Date End Date Shaka Harris MD PCP - General Internal Medicine 03/14/23
--- OUTSIDE RECORDS SUMMARY | 2025-03-11 16:13 | XMS_ITS | Clinical Summary ---
Author Organization [facility] Address [address] [place] [address] Care Team Providers Care Medical Engineer Name Role Phone Mabel Villafuerte NP Primary Care Provider [phone] Medications Semaglutide,0.2 5 or 0.5MG/DOS, (Ozempic, 0.25 or 0.5 MG/DOSE,) 2 MG/1.5ML solution pen-injector Inject 0.5 mg under the skin per week 12 mL 1 03/14/2024 Active losartan (COZAAR) 100 MG tablet TAKE ONE TABLET BY MOUTH EVERY EVENING 90 tablet 1 07/02/2024 Active glimepiride (AMARYL) 1 MG tablet Take 1 tablet (1 mg total) by mouth 1 (one) time each day in the morning 90 tablet 1 09/12/2024 Active carvedilol (COREG) 6.25 MG tablet TAKE ONE TABLET BY MOUTH EVERY MORNING AND ONE EVERY EVENING 180 tablet 1 12/13/2024 Active Encounters Date Type Department Care Team Description 03/10/2025 Documentation Only [facility], [address] [address] Irvin Porter DO 03/10/2025 Documentation Only [facility], [address] [address] Irvin Porter DO 12/13/2024 Refill [facility], [address] [address] Irvin Porter DO from Last 3 [...] st Contact Info) Description 03/20/2025 12:45 PM 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 [facility], [address] [address] Irvin Porter DO [address] [place] [phone] Health Maintenance Due Date Last Done Comments Breast Cancer Screening 1950 Colorectal Cancer Screening: Annual FOBT 2001 Colorectal Cancer Screening: Colonoscopy 2001 Colorectal Cancer Screening: Sigmoidoscopy 2001 Pneumococcal Vaccine: 50+ Years (2 of 2 - PCV) 03/19/2008 03/19/2007 Diabetes: Ophthalmology Exam 12/13/2021 Diabetes: Pedal Pulse Checked 12/13/2021 Diabetes: Sensory Foot Exam 12/13/2021 Diabetes: Visual Foot Exam 12/13/2021 Influenza Vaccine (#1) 2025 03/21/2017, 2011 Diabetes: Hemoglobin A1C 05/16/2025 025, 08/15/2024, 02/15/2024, Additional history exists Hepatitis B Vaccine Aged Out No longe r eligible based on patient's age to complete this topic Insurance Medicare [facility] [employer] Care Teams Medical Engineer Relationship Specialty Start Date End Date Mabel Villafuerte NP [facility] [address] [address] PCP - General 12/13/21
--- OUTSIDE RECORDS SUMMARY | 2025-03-11 16:13 | XMS_ITS | Encounter Summary ---
Author Organization [facility] Address [facility] [place] [address] Care Team Providers Care Dental Instrument Maker Name Role Phone Shaka Harris MD Primary Care Provider [phone] Rosendo Lugo MD Unavailable [phone] Laxmi Cruz MD Unavailable Encounter Details Date Type Department Care Team (Late st Contact Info) Description 02/22/[address] [facility] AT [address] [address] Rosendo Lugo MD [address] [place] [address] Social History Tobacco Use Types [...] documented as of this encounter Care Teams Dental Instrument Maker Relationship Specialty Start Date End Date Shaka Harris MD [address] [place] [address] PCP - General INTERNAL MEDICINE 03/02/16 Rosendo Lugo MD [address] [place] [address] [place] Can Filler CARDIOVASCULAR DISEASE 03/02/16 08/27/23 Laxmi Cruz MD [address] [place] [address] Consulting Physician CARDIOVASCULAR DISEASE 08/28/23 documented as of this encounter
--- OUTSIDE RECORDS SUMMARY | 2025-03-11 16:13 | XMS_ITS | Clinical Summary ---
Author Organization [facility] Address [address] [place] [address] Care Team Providers Care Commanding Officer Homicide Squad Name Role Phone Shaka Harris MD Primary Care Provider [phone] Allergies Active Allergy Reactions Criticality Noted Date [...] Take 1 tablet by mouth daily. Active [place]-3 Fatty Acids (OMEGA 3 500 OR) Take [...] week. Active amLODIPine (NORVASC) 5 MG tablet TAKE ONE TABLET BY MOUTH DAILY 90 tablet 3 5 Active Active Problems Problem Noted Date Diagnosed Date Sleep apnea Hypothyroidism Hyperlipidemia HTN (hypertension) Diabetes CAD (coronary artery disease) Aortic regurgitation Resolved [...] Early Mother Age 54 Heart Disease Mother CA Mother FATAL CORONARY HEART DISEASE Other Heart Attack Sister 1 Stent Cardiac Sister 1 COPD Sister 3 Diabetes Sister 3 Heart Disease Sister 3 CA, had cardiac cath with stent placed September [...] Comments Blood Pressure 130/72 04/11/2023 12:35 PM PHLEBOTOMIST LAB ASSISTANT Pulse 69 04/11/2023 12:35 PM PHLEBOTOMIST LAB ASSISTANT Temperature 36.2 C (97.2 F) 08/11/2020 12:26 PM CDT Respiratory Rate 16 04/11/2023 12:3 5 PM PHLEBOTOMIST LAB ASSISTANT Oxygen Saturation 99% 08/11/2020 12: 26 PM CDT Inhaled Oxygen Concentration - - Weight 102.2 kg (225 lb 3.2 oz) 023 12:35 PM PHLEBOTOMIST LAB ASSISTANT Height 157.5 cm (5' 2) 04/11/2023 12:3 5 PM PHLEBOTOMIST LAB ASSISTANT Body Mass Index 41.19 04/11/2023 12:35 PM PHLEBOTOMIST LAB ASSISTANT Plan of Treatment Health Maintenance Due Date [...] 11/02/2005, 11/02/2005, Additional history exists COVID-19 Vaccine (2024- season) 2025 Influenza Adult (#1) 2025 03/07/2019, 03/12/2018, 03/21/2017, Additional history exists Hepatitis A Vaccines Aged Out 04/01/2008, 10/02/19 08 No longer eligible based on patient's age to complete this topic Meningococcal B Vaccine Aged Out No l [...] Maintenance Insurance MEDICARE GENERIC - COMMERCIAL MEDICARE [facility] [employer] INSURANCE Doctor [employer] Advance Directives * Full Code (Latest Code Status on File) Date Activated Date Inactivated Comments 08/11/2020 2:56 PM 08/11/2020 7:44 PM Care Teams Commanding Officer Homicide Squad Relationship Specialty Start Date End Date Shaka Harris MD [address] [place] [address] PCP - General INTERNAL MEDICINE 03/02/16
--- OUTSIDE RECORDS SUMMARY | 2025-03-11 16:13 | XMS_ITS | Encounter Summary ---
Author Organization [facility] Address [facility] [place] [address] Care Team Providers Care Poured Concrete Wall Technician Name Role Phone Shaka Harris MD Primary Care Provider [phone] Rosendo Lugo MD Unavailable [phone] Laxmi Cruz MD Unavailable Encounter Details Date Type Department Care Team (Late st Contact Info) Description 08/19/2020 Abstract [facility] [address] [place] [address] Rosendo Lugo MD [address] [place] [address] Social History Tobacco Use Types [...] on filedocumented in this encounter Care Teams Poured Concrete Wall Technician Relationship Specialty Start Date End Date Shaka Harris MD [address] [place] [phone] PCP - General INTERNAL MEDICINE 03/02/16 Rosendo Lugo MD [address] [place] [address] [place] [employer] Equipment Repairer CARDIOVASCULAR DISEASE 03/02/16 08/27/23 Laxmi Cruz MD [address] [place] [address] Consulting Physician CARDIOVASCULAR DISEASE 08/28/23 documented as of this encounter
--- OUTSIDE RECORDS SUMMARY | 2025-03-11 16:13 | XMS_ITS | Encounter Summary ---
Author Organization [facility] [employer] [facility] Address [address] [place], [place] [address] [place] [address] Phone Care Team Providers Care Hull Grinder Name Role Phone Mabel Villafuerte NP Primary Care Provider [phone] Encounter Details Date Type Department Care Team (Late st Contact Info) Description 03/10/2025 Documentation Only [facility] [address] [address] Irvin Porter DO [address] [facility] 1 [place] [address] Social History Tobacco Use Types Packs/Day Years Used Date Smoking Tobacco: Never Assessed Comments Unknown Sex and Gender Information Value Date Recorded Sex Assigned at Not on file Legal Sex Female 5:23 PM EDT Gender Identity Not on file Sexual Orientation Not on file documented as of this encounter Plan of Treatment Upcoming Encounters Date Type Department Care Team (Late Contact Info) Description 03/20/2025 12:45 PM 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
--- OUTSIDE RECORDS SUMMARY | 2025-03-11 16:13 | XMS_ITS | Encounter Summary ---
Author Organization [facility] [employer] [facility] Address [address] [place], [place] [address] [place] [address] Phone Care Team Providers Care Spring Winder Name Role Phone Mabel Villafuerte NP Primary Care Provider [phone] Encounter Details Date Type Department Care Team (Late st Contact Info) Description 03/10/2025 Documentation Only [facility] [address] [address] Irvin Porter DO [address] [facility] 1 [place] [address] Social History Tobacco Use Types [...] (Late Contact Info) Description 03/20/2025 12:45 PM FISH NET STRINGER Office Visit [facility] [address] [place] [address] Irvin Porter DO [address] [facility] 1 [place] [address] documented as of this encounter Visit Diagnoses Not on filedocumented in this encounter Care Teams Spring Winder Relationship Specialty Start Date End Date Mabel Villafuerte NP [facility] Frieda Fitch [address] [place] [address] PCP - General 12/13/21 documented as of this encounter
== END 2025-03-11 14:45 | disposition home or self-care (01) ==
LOC: ANHFOHIMG 14:44
PROVIDERS: PCP Internal Medicine; Visit Provider Obstetrics & Gynecology
DX: Z12.31 Encounter for screening mammogram for malignant neoplasm of breast (principal)
CPT/HCPCS: 77063; 77067